=== PATIENT | male | born 1940 | race Caucasian/White ===

== ENCOUNTER → 2016-03-22 | Outpatient (CLI) | payer BC ==
[~2016-03-22] MED LIST: ACET-1311 PO; ASPI-435 PO; ATRIN INH; ATROPO PEG; ATV1 SL; AZEL0.15 NAE; BNC20 PO; CALC500C70 PO; CHOL100010 PO; DIAZ2TAB PO; DOCU-94 PO; DRGTP12 TD; IPRA1AER2 INH; Levalbuterol INH; MIRT15TA3 PO; MULT-506 PO; POLY1SOL6 OP; RXNS15 PO; SIMV10TA2 PO; SYN50 PO
[2016-03-22 15:44] LABS: BASO % 0.2 %; BASO ABS # 0.02 K/uL (0-0.2); COMPLETE YES; EOS % 0.4 %; HEMATOCRIT 37.8 % (42-52); IG% 0.2 %; LYMPH % 14.4 %; LYMPH ABS # 1.74 K/uL (1.2-3.4); MEAN CELL VOLUME 90.2 fL (80-100); MEAN CORPUSCULAR HEMOGLOBIN 30.8 pg (25-34); MEAN CORPUSCULAR HGB CONC 34.1 g/dl (32-36); MONO % 7.1 %; NEUT % 77.7 %; PLATELET COUNT 503 K/uL (130-400); RED BLOOD COUNT 4.19 M/uL (4.7-6.1)
[2016-03-22 16:16] LABS: ALT/SGPT 22 U/L (12-78); BLOOD UREA NITROGEN 18 mg/dl (7-18); BUN/CREATININE RATIO 18.4 (10-20); CALCIUM 9.4 mg/dl (8.5-10.1); CARBON DIOXIDE 26 mmol/L (21-32); CHLORIDE 99 mmol/L (98-107); GLUCOSE 132 mg/dl (70-99); POTASSIUM 4.2 mmol/L (3.5-5.1); SODIUM 136 mmol/L (136-145)
[2016-03-22 16:26] LABS: ALB/GLOB RATIO 0.5 (0.9-2); ALKALINE PHOSPHATASE 109 U/L (45-117); AST/SGOT 24 U/L (15-37)
== END | disposition home or self-care (01) ==
LOC: C.LAB1850 14:46
PROVIDERS: ATTEND Internal Medicine
DX: E03.9 Hypothyroidism, unspecified (principal); G62.9 Polyneuropathy, unspecified

== ENCOUNTER → 2016-04-02 | Outpatient (CLI) | payer BC ==
[2016-04-02 13:13] LABS: THYROID STIMULATING HORMONE 5.03 uIu/ml (0.300-4.500)
== END | disposition home or self-care (01) ==
LOC: C.LABWYN 11:42
PROVIDERS: ATTEND Internal Medicine
DX: E07.9 Disorder of thyroid, unspecified (principal)

== ENCOUNTER → 2016-04-25 | Outpatient (CLI) | payer BC ==
[2016-04-25 12:58] LABS: THYROID STIMULATING HORMONE 5.87 uIu/ml (0.300-4.500)
== END | disposition home or self-care (01) ==
LOC: C.LABWYN 12:45
PROVIDERS: ATTEND Internal Medicine
DX: E03.9 Hypothyroidism, unspecified (principal)

== ENCOUNTER → 2016-05-16 | Outpatient (CLI) | payer BC ==
[2016-05-16 12:33] LABS: THYROID STIMULATING HORMONE 4.93 uIu/ml (0.300-4.500)
== END | disposition home or self-care (01) ==
LOC: C.LABWYN 12:13
PROVIDERS: ATTEND Internal Medicine
DX: E03.9 Hypothyroidism, unspecified (principal)

== ENCOUNTER 2016-05-20 13:23 | Inpatient (IN) | payer BC, OTHER ==
[~2016-05-20] VITALS: Ht 182.9 cm; Wt 56.6 kg
[~2016-05-20 13:23] MED LIST changes: -ACET-1311 PO; -ATROPO PEG; -ATV1 SL; -DOCU-94 PO; -DRGTP12 TD; -IPRA1AER2 INH; -RXNS15 PO; -SYN50 PO
[2016-05-20] MEDS ORDERED: ALBUT/IPRATROP 3MG/0.5MG NEB 3 ML VIAL INH STA (16:10)
--- NOTE | 2016-05-20 16:49 | EMERGENCY ROOM VISIT NOTE ---
ED Visit Note First contact with patient: 15:57 I have seen and examined this patient with Amandeep Townsend and generally agree with the treatment plan as discussed. Problem List Medical Problems: (1) Peripheral neuropathy Status: Chronic (2) Pulmonary fibrosis Status: Chronic Current/Historical Medications Scheduled Aspirin (Aspirin 81), 81 MG PO QAM Azelastine Hcl (Astepro), 2 SPRY FERMIN DAILY Calcium/Vitamin D (Os-Tylor 500 Plus D), 1 TAB PO QAM Cholecalciferol (Vitamin D), 1,000 INTER.UNIT PO QAM Diazepam (Valium), 2 MG PO QPM Ipratropium [place] (Atrovent Hfa), 2 PUFFS INH Q6 Mirtazapine (Remeron), 15 MG PO HS Multivitamin (Multivitamin), 1 TAB PO QAM Olmesartan Medoxomil (Benicar), 10 MG PO BID Polyethylene Glycol-Propylene (Systane Ultra), 1 DROPS OP QID Simvastatin (Zocor), 1 TAB PO HS [Levalbuterol], 2 PUFFS INH Q6 Allergies Coded Allergies: Sulfa Antibiotics (Verified Allergy, Unknown, "SULFA DRUGS", 12/27/15) Vital Signs Date Time Temp Pulse Resp B/P Pulse Ox O2 Delivery O2 Flow Rate FiO2 05/20/16 16:21 93 05/20/16 16:17 94 Nasal Cannula 2.0 05/20/16 13:33 97 Nasal Cannula 3.0 05/20/16 13:30 36.7 68 20 145/78 97 Nasal Cannula 3.0 Laboratory Results Test 05/20/16 16:10 Departure Information Referrals Pro,Abraham Wright M.D. (PCP) Patient Instructions My [facility]
[2016-05-20] MEDS ORDERED: CHOL100010 PO (16:52)
[2016-05-20] MEDS ORDERED: DOCU-94 PO (16:52)
[2016-05-20] MEDS ORDERED: IPRA1AER2 INH (16:52)
[2016-05-20] MEDS ORDERED: ACET-1311 PO (16:52)
[2016-05-20] MEDS ORDERED: SYN50 PO (16:52)
[2016-05-20 16:56] LABS: BASO % 0.3 %; BASO ABS # 0.03 K/uL (0-0.2); COMPLETE YES; EOS % 0.2 %; HEMATOCRIT 32.6 % (42-52); IG% 0.2 %; LYMPH % 13.7 %; LYMPH ABS # 1.47 K/uL (1.2-3.4); MEAN CELL VOLUME 92.9 fL (80-100); MEAN CORPUSCULAR HEMOGLOBIN 31.3 pg (25-34); MEAN CORPUSCULAR HGB CONC 33.7 g/dl (32-36); MEAN PLATELET VOLUME 8.8 fL (7.4-10.4); MONO % 6.6 %; PLATELET COUNT 475 K/uL (130-400); RED BLOOD COUNT 3.51 M/uL (4.7-6.1); WHITE BLOOD COUNT 10.72 K/uL (4.8-10.8)
[2016-05-20 17:12] LABS: BUN/CREATININE RATIO 20.5 (10-20); CALCIUM 9.7 mg/dl (8.5-10.1); CREATININE 0.87 mg/dl (0.60-1.40); POTASSIUM 4.3 mmol/L (3.5-5.1)
[2016-05-20 17:15] LABS: ALB/GLOB RATIO 0.4 (0.9-2)
--- NOTE | 2016-05-20 19:14 | History and Physical ---
History & Physical Date & Time of Service: May 20, 2016 at 19:03 Chief Complaint: Referred By Primary Care Physician: Abraham Bermeo M.D. History of Present Illness Source: patient, clinic records, hospital records This patient is a pleasant 75-year-old male that was sent to the emergency department by his quiller operator office today. The patient has a history of pulmonary fibrosis. The disease seems to be progressing fairly quickly. The patient reports wearing 2 L of oxygen per nasal cannula at home at all times. His shortness of breath has progressively gotten worse over the last 2 months. He also notes approximately 60 pound weight loss within the last year. He reports his appetite has been very poor. He does complain of a chronic cough. He denies any hemoptysis. The cough is usually productive with sometimes white and sometimes green sputum. He denies any fever or chills. He denies any recent changes in his medications. During the patient's quiller operator visit today, he was found to be significantly hypoxic in the 80s reportedly on 5 L per nasal cannula. This prompted his visit to the emergency department. He is currently saturating at 93% on 2 L. The patient received a DuoNeb treatment in the emergency department with minimal improvement. Past Medical/Surgical History Medical Problems: (1) Peripheral neuropathy Status: Chronic (2) Pulmonary fibrosis Status: Chronic Hypertension BPH Restless leg syndrome Peripheral neuropathy Status post appendectomy, tonsillectomy, cataract surgery bilaterally, retinal repair, strabismus surgery Family History Patient reports no known family medical history. Mother-emphysema Father-coronary artery disease Social History Smoking Status: Former Smoker (reports being a light smoker. Less than a half pack per day. Quit 3 years ago.) Drug Use: none Marital Status: Housing status: other (lives at the [facility]) Occupational Status: retired Multi-Drug Resistant Organisms History of MDRO: No Allergies Coded Allergies: Sulfa Antibiotics (Verified Allergy, Unknown, "SULFA DRUGS", 05/20/16) Home Medications Scheduled Aspirin (Aspirin 81), 81 MG PO QAM Azelastine Hcl (Astepro), 2 SPRY FERMIN DAILY Calcium/Vitamin D (Os-Tylor 500 Plus D), 1 TAB PO QAM Cholecalciferol (Vitamin D), 1,000 UNIT PO DAILY Ipratropium-Albuterol (Combivent Respimat), 1 PUFFS INH QID Levothyroxine Sodium (Synthroid), 50 MCG PO QAM Mirtazapine (Remeron), 15 MG PO HS Multivitamin (Multivitamin), 1 TAB PO QAM Olmesartan Medoxomil (Benicar), 10 MG PO BID Polyethylene Glycol-Propylene (Systane Ultra), 1 DROPS OP QID Simvastatin (Zocor), 10 MG PO HS Scheduled PRN Acetaminophen (Tylenol), 325 MG PO Q6 PRN for Pain Docusate Sodium (Colace), 100 MG PO BID PRN for Constipation Review of Systems 10 system review performed and negative unless noted in HPI or below Physical Exam Vital Signs Date Time Temp Pulse Resp B/P Pulse Ox O2 Delivery O2 Flow Rate FiO2 05/20/16 16:21 93 05/20/16 16:17 94 Nasal Cannula 2.0 05/20/16 13:33 97 Nasal Cannula 3.0 05/20/16 13:30 36.7 68 20 145/78 97 Nasal Cannula 3.0 General Appearance: + mild distress (mild respiratory distress), + cachetic Head: normocephalic ENT: + pertinent finding (oral mucosa dry. White plaque noted on the tongue.) Neck: no JVD Respiratory/Chest: + pertinent finding (crackles noted diffusely. Very faint expiratory wheeze noted right greater than left. Positive tachypnea.) Cardiovascular: + tachycardia (no murmur. Regular rhythm.) Abdomen/GI: normal bowel sounds, non tender, soft Extremities/Musculoskelatal: no calf tenderness, no pedal edema, + pertinent finding (muscle wasting noted in the lower extremities.) Neurologic/Psych: no motor/sensory deficits, oriented x 3 Skin: warm/dry Diagnostics Laboratory Results Results Past 24 Hours Test 05/20/16 16:40 Range/Units White Blood Count 10.72 4.8-10.8 K/uL Red Blood Count 3.51 4.7-6.1 M/uL Hemoglobin 11.0 14.0-18.0 g/dL Hematocrit 32.6 42-52 % Mean Corpuscular Volume 92.9 80-100 fL Mean Corpuscular Hemoglobin 31.3 25-34 pg Mean Corpuscular Hemoglobin Concent 33.7 32-36 g/dl Platelet Count 475 130-400 K/uL Mean Platelet Volume 8.8 7.4-10.4 fL Neutrophils (%) (Auto) 79.0 % Lymphocytes (%) (Auto) 13.7 % Monocytes (%) (Auto) 6.6 % Eosinophils (%) (Auto) 0.2 % Basophils (%) (Auto) 0.3 % Neutrophils # (Auto) 8.47 1.4-6.5 K/uL Lymphocytes # (Auto) 1.47 1.2-3.4 K/uL Monocytes # (Auto) 0.71 0.11-0.59 K/uL Eosinophils # (Auto) 0.02 0-0.5 K/uL Basophils # (Auto) 0.03 0-0.2 K/uL RDW Standard Deviation 54.1 36.4-46.3 fL RDW Coefficient of Variation 16.0 11.5-14.5 % Immature Granulocyte % (Auto) 0.2 % Immature Granulocyte # (Auto) 0.02 0.00-0.02 K/uL Sodium Level 136 136-145 mmol/L Potassium Level 4.3 3.5-5.1 mmol/L Chloride Level 98 98-107 mmol/L Carbon Dioxide Level 31 21-32 mmol/L Anion Gap 7.0 3-11 mmol/L Blood Urea Nitrogen 18 7-18 mg/dl Creatinine 0.87 0.60-1.40 mg/dl Est Creatinine Clear Calc Drug Dose 65.3 ml/min Estimated GFR () 96.5 Estimated GFR (Non- 83.2 BUN/Creatinine Ratio 20.5 10-20 Random Glucose 138 70-99 mg/dl Calcium Level 9.7 8.5-10.1 mg/dl Total Bilirubin 0.3 0.2-1 mg/dl Aspartate Amino Transf (AST/SGOT) 26 15-37 U/L Alanine Aminotransferase (ALT/SGPT) 19 12-78 U/L Alkaline Phosphatase 122 45-117 U/L Total Protein 8.0 6.4-8.2 gm/dl Albumin 2.2 3.4-5.0 gm/dl Globulin 5.8 2.5-4.0 gm/dl Albumin/Globulin Ratio 0.4 0.9-2 Diagnostic Radiology Patient Name: BISI YANG Dominick Unit Number: [id number] Dictated: 05/20/161246 Transcribed: 05/20/161246 EV Printed Date/Time: [~ rep prt dt]/[~ rep prt tm] [~ rep ct labl] - [~ rep ct ivnm] [facility] Radiology Department [facility] JUST[place] [id number] Dictated: 05/20/161246 Transcribed: 05/20/161246 EV Printed Date/Time: [~ rep prt dt]/[~ rep prt tm] [~ rep ct labl] - [~ rep ct ivnm] Patient: BISI YANG Address1: [address] [facility] Rec: [id number] Address2: Acct ID: [id number] [facility] [address] Date: 1940 Sex: M Room/Bed: Ref Phy: SC: [id number] Att Phy: Deanna Mc PA-C Report #: [id number] Vikki Phy: No Doctor, Assigned Test: CXR Admit Phy: Manager Bilingual: CHRIS Interpreting Phy: Flo Mosqueda M.D. Diagnosis: R06.02 Ordering Phy: Deanna Mc PA-C Service Date: 05/20/16 Admit Date: 05/20/16 MNE: [id number] CONF: DICTATED BY: Flo Mosqueda M.D.]] CC: No Doctor, Assigned Deanna Mc PA-C Endcc: [~ rep ct add3]] TWO VIEW CHEST CLINICAL HISTORY: Dyspnea. FINDINGS: PA and lateral chest radiographs are compared to study dated 12/25/2015 and correlated with chest CT dated 12/21/2015. The heart is top normal in size and there is atherosclerotic calcification of the thoracic aorta. Findings of extensive chronic interstitial lung disease with multifocal bronchiectasis, cystic change, multifocal airspace opacities, and significant pleural thickening at the lung bases has modestly progressed from previous. There is no definite superimposed airspace consolidation. No large pleural effusion is seen. There is no pneumothorax. The skeletal structures are osteopenic. The bony thorax appears intact. Degenerative change and hyperkyphosis are noted in the thoracic spine. IMPRESSION: 1. Findings of advanced chronic interstitial lung disease with multiple foci of bronchiectasis, nodular airspace opacities, and cystic change appears somewhat progressed from the 12/25/2015 examination. 2. There is no clear evidence of superimposed airspace consolidation or pleural effusion. Electronically signed by: Flo Mosqueda M.D. 05/20/2016 12:50 PM Dictated Date/Time: 05/20/2016 12:47 PM The status of this report is Signed. Draft = Not yet reviewed or approved by Radiologist. Signed = Reviewed and approved by Radiologist. <AttendingPhy>Deanna Mc PA-C</AttendingPhy> <FamilyPhy></FamilyPhy> < PrimaryPhy>No Doctor, Assigned</PrimaryPhy> <UnitNumber>[id number]</UnitNumber> <VisitNumber>[id number]</VisitNumber> <PatientName>BISI YANG</PatientName > <DateOfBirth>1940</DateOfBirth> <Location>[id number]</Location> < ServiceDate>05/20/16</ServiceDate> <MNE>ESINDI</MNE> <OrderingPhy>Deanna Mc</OrderingPhy> <OrderingPhyMNE>f rep ord dr nolasco</OrderingPhyMNE> < DictatingPhyMNE>f rep dict dr nolasco</DictatingPhyMNE> <CCListMNE>f rep ct mne</ CCListMNE> <AdmittingPhyMNE>f pt admit dr nolasco</AdmittingPhyMNE> <AttendingPhyMNE >f pt attend dr nolasco</AttendingPhyMNE> <ConsultingPhyMNE>f pt consult dr nolasco</ConsultingPhyMNE> <FamilyPhyMNE>f pt fam dr nolasco</FamilyPhyMNE> <OtherPhyMNE>f pt other dr nolasco</OtherPhyMNE> < PrimaryPhyMNE>f pt prim care dr nolasco</PrimaryPhyMNE> <ReferringPhyMNE>f pt referring dr nolasco</ReferringPhyMNE> Impression Assessment and Plan 75-year-old male with an unfortunate history of progressive interstitial lung disease presents to the emergency department with acute on chronic respiratory failure Acute on chronic respiratory failure with hypoxia -Admit to medical floor -Change Combivent to DuoNeb scheduled every 6 hours -Patient reports no significant improvement with steroids. I will hold off on steroids for now -I also will hold off on IV antibiotics as the patient is afebrile with no white count noted. -CT of the chest with IV contrast -Pulmonary consult -Continuous pulse ox -O2 per protocol Hypertension -Patient typically is on Olmesartan at 10 mg twice daily at home. I will hold this in the anticipation of the patient receiving IV dye for CT of the chest -Hydralazine 5 mg IV q 6 hr PRN Hypothyroidism -Continue Synthroid 50 g daily Restless leg syndrome -Continue Remeron 15 mg at night Weight loss-->? d/t chronic disease Hyperlipidemia -Continue simvastatin 10 mg daily DVT prophylaxis -Heparin 5000 units subcutaneous BID -TEDChriss SCDs CODE STATUS -CPR/cardioversion ok -NO INTUBATION Level of Care Med/Surg Resuscitation Status FULL RESUSCITATION VTE Prophylaxis VTE Risk Assessment Done? Y/N: Yes Risk Level: Low Given or contraindicated: Unfractionated heparin SQ, T.E.D. Stockings, SCD's History Physician Senior Project Engineer Supervision Note: I interviewed and examined the patient. Discussed with JUSTUS Sharif and agree with findings and plan as documented in the note. Any exceptions or clarifications are listed here: Patient admitted for acute on chronic hypoxemic respiratory failure with a history of interstitial lung disease with cystic changes and bronchiectasis with a previous admission a few months ago for presumed superimposed pneumonia. Patient returns with chronically worsening hypoxemia. He reports when his pulse ox was checked at his personal assisted, it is frequently in the mid 80s with exercise. He has been having a lot of dyspnea on exertion. He denies chest pain or leg swelling. He continues to lose weight even more since the last admission. Vitals reviewed Cachectic appearing, no acute distress Regular rate and rhythm no murmurs, gallops or rubs Diffuse coarse crackles and rhonchi bilateral lungs Abdomen soft nontender nondistended positive bowel sounds Extremities with sarcopenia, no edema Skin no rashes 75-year-old male with a history of chronic interstitial lung disease, CT of the chest performed since admission shows progressively worsening parenchymal infiltrate. We will go ahead and add on antibiotics to cover for broad range of infectious organisms and given that he resides in a alf facility, will give Zosyn, vancomycin, and Levaquin. We'll also start IV Solu-Medrol given that he did have improvement last admission as per the discharge summary with IV steroids and antibiotics. Appreciate pulmonology input and question if needs bronchoscopy this admission. We'll collect sputum sample as well. As for the weight loss, it could be due to his chronic lung disease, however he could have an occult malignancy as well. He is up-to-date on his colonoscopy, but has not had a CT of the abdomen and pelvis. Consideration could be given to doing this while an inpatient. Documented By: Valarie Jaime
[2016-05-20] MEDS ORDERED: ACETAMINOPHEN 325 MG TAB PO PRN (19:15)
[2016-05-20] MEDS ORDERED: ALUMINUM/MAGNESIUM/SIMETH (MAALOX MAX) 30 ML UDC PO PRN (19:15)
[2016-05-20] MEDS ORDERED: HydrALAZINE HCL 20 MG/ML VIAL IV. PRN (19:15)
[2016-05-20] MEDS ORDERED: ONDANSETRON INJ 2 MG/ML 2 ML VIAL IV PRN (19:15)
[2016-05-20] MEDS ORDERED: ALBUT/IPRATROP 3MG/0.5MG NEB 3 ML VIAL INH PRN (19:45)
[2016-05-20] MEDS: ALBUT/IPRATROP 3MG/0.5MG NEB 3 ML VIAL INH SCH (20:00)
[2016-05-20 20:31] LABS: INR 1.1 (0.9-1.1); PARTIAL THROMBOPLASTIN RATIO 1.2; PROTHROMBIN TIME (PATIENT) 11.4 SECONDS (9.0-12.0)
[2016-05-20] MEDS ORDERED: OPTIRAY 320 IV PRN (21:00)
--- NOTE | 2016-05-20 21:11 | DIAGNOSTIC IMAGING REPORT ---
CHEST CT WITH CONTRAST CT DOSE: 343.64 mGy.cm HISTORY: Dyspnea acute on chronic respiratory failure ?infectious process TECHNIQUE: Multiaxial CT images of the chest were performed following the intravenous administration of contrast. COMPARISON: 12/21/2015 FINDINGS: Diffuse bilateral parenchymal fibrotic, interstitial, and bronchiectatic change. Continues be a trace amount of pneumomediastinum which is at least moderately improved compared to the prior exam. Mild stable cardiomegaly. Increased prominence of the parenchymal findings in the peripheral lung regions and in particular the left pulmonary apex. Superimposed infiltrative change must be considered. There are no significant pleural effusions. Bleb formation bilaterally is stable to minimally progressive. There has been no evidence for progressive mediastinal or hilar adenopathy. IMPRESSION: 1. Progressive parenchymal fibrotic and bronchiectatic change bilaterally. 2. Probable superimposed infiltrative change in the periphery of the lungs as well as in the left upper lobe region. 3. A small pneumomediastinum is slightly improved from the prior exam Electronically signed by: Jr Foley M.D. 05/20/2016 9:09 PM Dictated Date/Time: 05/20/2016 9:07 PM
[2016-05-20] MEDS: SIMVASTATIN 10 MG TAB PO SCH ×2 (22:00→22:03)
[2016-05-20] MEDS: MIRTAZAPINE TAB 15 MG TAB PO SCH ×2 (22:00→22:03)
[2016-05-20] MEDS: ARTIFICIAL TEARS OP SOLN OP SCH ×2 (22:01)
[2016-05-20] MEDS: DOCUSATE SODIUM 100 MG CAP PO SCH (22:02)
[2016-05-20] MEDS: HEPARIN SOD 5000 UNIT/0.5 ML CARP SQ SCH (22:05)
[2016-05-20] MEDS: BOOST VANILLA PO SCH ×2 (22:09)
[2016-05-20] MEDS ORDERED: METHYLPREDNISOLONE IV 60 MG in SYRINGE 0 ML IV ONE (22:43)
[2016-05-20] MEDS ORDERED: PIPERACILL/TAZOBAC CONSULT ACTIVE PRN (22:45)
[2016-05-20] MEDS ORDERED: PIPERACILL/TAZOBAC IV 3.375 GM in DEXTROSE 5% 100ML IV ONE (22:45)
[2016-05-20 23:38] VITALS: BP 120/81; TEMP 36.7; O2SAT 97; Ht 182.9 cm; Wt 56.6 kg
[2016-05-21] VITALS (11 sets, daily range): BP systolic 118–135; BP diastolic 72–77; PULSE 66–81; TEMP 34.7–36.4; O2SAT 89–100
[2016-05-21] MEDS ORDERED: VANCOMYCIN INJ 1,600 MG in SODIUM CHLORIDE 0.9% 500ML 500 ML IV SCH (01:00)
[2016-05-21] MEDS: LEVOFLOXACIN / D5W 750 MG in PREMIXED IN D5W 150 ML IV SCH ×2 (01:08→22:37)
--- NOTE | 2016-05-21 01:14 | EMERGENCY ROOM VISIT NOTE ---
ED Visit Note First contact with patient: 15:57 Chief Complaint: Shortness of breath. History of Present Illness: Mr. Ramos is a 75-year-old white male who is accompanied into the ED by his complaining of shortness of breath and weight loss. Historically patient has a history of pulmonary fibrosis, interstitial lung disease and pneumonia. Patient reports over the last 3 months he has been almost continuously short of breath. This is been associated with a chronic nonproductive cough and weight loss. He was being seen at his PCPs office today for pulmonary tests. When he was seen he was on oxygen and was reported saturating 82%. His appointment was canceled and he was referred to the ED for further evaluation and care. Currently patient's only complaint is shortness of breath. He does report he has a chronic cough. His dyspnea worsens on exertion and mildly improves at rest. Associated with the shortness of breath, poor appetite and he reports she 's lost 80 pounds over the last year. He denies fevers, chills, sweats, skin eruptions, skin color changes, headache, dizziness, lightheadedness, nasal drainage, sore throat, voice changes, hemoptysis, wheezing, orthopnea, dependent edema, previous clots, claudication, cramping, chest pain, abdominal pain, nausea, vomiting. Review of Systems: As noted above in history of present illness. All body systems were reviewed and found to be negative as noted above. Past Medical History:Medical Problems: (1) Acute and chronic respiratory failure (2) Interstitial lung disease (3) Peripheral neuropathy (4) Pulmonary fibrosis (5) Right lower lobe pneumonia Current Medications: Medications Dose Route/Sig Max Daily Dose Days Date Category Tylenol (Acetaminophen) 325 Mg Tab 325 Mg PO Q6 PRN 05/20/16 Reported Synthroid (Levothyroxine Sodium) 50 Mcg Tab 50 Mcg PO QAM 05/20/16 Reported Combivent Respimat (Ipratropium-Albuterol) 1 Aer Aer 1 Puffs INH QID 05/20/16 Reported Colace (Docusate Sodium) 100 Mg Cap 100 Mg PO BID PRN 05/20/16 Reported Vitamin D (Cholecalciferol) 1,000 Unit Tab 1,000 Unit PO DAILY 05/20/16 Reported Remeron (Mirtazapine) 15 Mg Tab 15 Mg PO HS 12/20/15 Reported Benicar (Olmesartan Medoxomil) 20 Mg Tab 10 Mg PO BID 07/05/15 Reported Systane Ultra (Polyethylene Glycol-Propylene) 1 Annette Annette 1 Drops OP QID 09/14/14 Reported Zocor (Simvastatin) 10 Mg Tab 10 Mg PO HS 30 09/14/14 Reported Multivitamin (Multivitamins) Tab 1 Tab PO QAM 09/14/14 Reported Os-Tylor 500 Plus D (Calcium/Vitamin D) Tab 1 Tab PO QAM 09/14/14 Reported Astepro (Azelastine Hcl) 0.15 % Spr 2 [place] FERMIN DAILY 30 09/14/14 Reported Aspirin 81 (Aspirin) 81 Mg Tab 81 Mg PO QAM 09/14/14 Reported Allergies to Medications: Sulfa. Social History: Patient is currently retired; he feels safe in his home environment; he denies tobacco use. Physical Examination: Vital Signs: Date Time Temp Pulse Resp B/P Pulse Ox O2 Delivery O2 Flow Rate FiO2 05/20/16 19:09 36.7 93 18 120/81 97 Nasal Cannula 3.0 05/20/16 16:21 93 05/20/16 16:17 94 Nasal Cannula 2.0 05/20/16 13:33 97 Nasal Cannula 3.0 05/20/16 13:30 36.7 68 20 145/78 97 Nasal Cannula 3.0 GENERAL: 75-year-old male in mild to moderate distress with increased respiratory effort and rate. Cachectic-appearing. Afebrile and hemodynamically stable. NEUROLOGICAL: Awake, alert and oriented to person, place and time. Answering questions appropriately and following commands. Good hand eye coordination. No focal motor sensory deficits. SKIN: Warm, dry and pink. HEENT: Atraumatic and normocephalic. PERRLA. Sclera white and conjunctiva pale. No drainage from naris. Oral cavity moist and pink. Pharynx is nonerythematous or edematous. Speech normal. No lymphadenopathy. Trachea midline. No jugular venous distention. BACK: No tenderness over the bony spine. No CVA tenderness. THORAX: Lungs sounds are decreased bilateral with scattered rhonchi and an occasional wheeze. Equal bilaterally with symmetrical chest wall. Increased with respiratory effort. No crepitus, tenderness, subcutaneous air or deformities noted. HEART: Regular rate and rhythm. No gallops, rubs or murmurs are appreciated. ABDOMEN: Flat, soft and nontender. Positive bowel sounds in all quadrants. No guarding, rigidity or organomegaly. EXTREMITIES: Moves all extremities well on command and with purpose. All distal neurovascular statuses are intact and equal bilaterally. No calf tenderness or cords. ED Course: Patient is assessed as noted above. Laboratory Testing: Test 05/20/16 16:40 Range/Units White Blood Count 10.72 4.8-10.8 K/uL Red Blood Count 3.51 4.7-6.1 M/uL Hemoglobin 11.0 14.0-18.0 g/dL Hematocrit 32.6 42-52 % Mean Corpuscular Volume 92.9 80-100 fL Mean Corpuscular Hemoglobin 31.3 25-34 pg Mean Corpuscular Hemoglobin Concent 33.7 32-36 g/dl Platelet Count 475 130-400 K/uL Mean Platelet Volume 8.8 7.4-10.4 fL Neutrophils (%) (Auto) 79.0 % Lymphocytes (%) (Auto) 13.7 % Monocytes (%) (Auto) 6.6 % Eosinophils (%) (Auto) 0.2 % Basophils (%) (Auto) 0.3 % Neutrophils # (Auto) 8.47 1.4-6.5 K/uL Lymphocytes # (Auto) 1.47 1.2-3.4 K/uL Monocytes # (Auto) 0.71 0.11-0.59 K/uL Eosinophils # (Auto) 0.02 0-0.5 K/uL Basophils # (Auto) 0.03 0-0.2 K/uL RDW Standard Deviation 54.1 36.4-46.3 fL RDW Coefficient of Variation 16.0 11.5-14.5 % Immature Granulocyte % (Auto) 0.2 % Immature Granulocyte # (Auto) 0.02 0.00-0.02 K/uL Prothrombin Time 11.4 9.0-12.0 SECONDS Prothromb Time International Ratio 1.1 0.9-1.1 Activated Partial Thromboplast Time 31.6 21.0-31.0 SECONDS Partial Thromboplastin Ratio 1.2 Sodium Level 136 136-145 mmol/L Potassium Level 4.3 3.5-5.1 mmol/L Chloride Level 98 98-107 mmol/L Carbon Dioxide Level 31 21-32 mmol/L Anion Gap 7.0 3-11 mmol/L Blood Urea Nitrogen 18 7-18 mg/dl Creatinine 0.87 0.60-1.40 mg/dl Est Creatinine Clear Calc Drug Dose 65.3 ml/min Estimated GFR () 96.5 Estimated GFR (Non- 83.2 BUN/Creatinine Ratio 20.5 10-20 Random Glucose 138 70-99 mg/dl Calcium Level 9.7 8.5-10.1 mg/dl Total Bilirubin 0.3 0.2-1 mg/dl Aspartate Amino Transf (AST/SGOT) 26 15-37 U/L Alanine Aminotransferase (ALT/SGPT) 19 12-78 U/L Alkaline Phosphatase 122 45-117 U/L Total Protein 8.0 6.4-8.2 gm/dl Albumin 2.2 3.4-5.0 gm/dl Globulin 5.8 2.5-4.0 gm/dl Albumin/Globulin Ratio 0.4 0.9-2 Chest X-Rays: Were reviewed by myself and read by the radiologist findings of advanced chronic interstitial lung disease with multiple foci of bronchiectasis , nodular airspace opacities and cystic changes somewhat aggressive from July 2015 examination. There is no evidence of superimposed airspace consolidation or pleural effusion. Patient was given an albuterol/Atrovent nebulizer breathing treatment. After his breathing treatment he was reassessed and had slight improvement in air movement and no additional wheezing but still had scattered rhonchi. His respiratory effort and rate did seem to improve. Patient was reassessed multiple times during his stay in the emergency department. Patient's case was reviewed with Dr. Dueñas; he independently assessed the patient and we agreed on diagnostic approach, treatment, disposition and plan. Patient's case was consulted with case management and Dr. Gonsalves, , for medical observation/admission. Patient and were educated about today's findings. Clinical Impression: Shortness of breath. Exacerbation of chronic lung disease. Decision-Making: Initially my differential diagnosis I considered pneumonia, pulmonary embolism, acute coronary syndrome, pneumothorax, and other causes. Disposition and Plan: Please see Dr. Jaime's notes and orders for final disposition and plan.
[2016-05-21 01:46] LABS: URINE APPEARANCE CLOUDY (CLEAR); URINE BILIRUBIN NEG (NEG); URINE COLOR YELLOW; URINE EPITHELIAL CELL AUTO 20-30 /lpf (0-5); URINE NITRITE NEG (NEG); URINE SPECIFIC GRAVITY > 1.045 (1.000-1.030); UROBILINOGEN NEG (NEG)
[2016-05-21 01:53] LABS: MANUAL MICROSCOPIC REQUIRED? NO; REVIEW REQ? NO
[2016-05-21] MEDS: PIPERACILL/TAZOBAC IV 3.375 GM in DEXTROSE 5% 100ML IV SCH ×3 (04:43→21:31)
[2016-05-21] MEDS: LEVOTHYROXINE 50 MCG TAB PO SCH (05:52)
[2016-05-21] MEDS ORDERED: PIPERACILL/TAZOBAC IV 3.375 GM in DEXTROSE 5% 100ML 100 ML IV SCH (06:00)
[2016-05-21 06:11] LABS: BASO % 0.1 %; BASO ABS # 0.01 K/uL (0-0.2); COMPLETE YES; EOS % 0.2 %; IG% 0.2 %; LYMPH % 8.9 %; LYMPH ABS # 0.75 K/uL (1.2-3.4); MEAN CELL VOLUME 92.8 fL (80-100); MEAN CORPUSCULAR HEMOGLOBIN 31.1 pg (25-34); MEAN CORPUSCULAR HGB CONC 33.5 g/dl (32-36); MEAN PLATELET VOLUME 8.8 fL (7.4-10.4); MONO % 1.1 %; NEUT % 89.5 %; PLATELET COUNT 471 K/uL (130-400); RED BLOOD COUNT 3.34 M/uL (4.7-6.1)
[2016-05-21] MEDS: METHYLPREDNISOLONE IV 60 MG in SYRINGE 0 ML IV SCH ×3 (06:32→22:11)
[2016-05-21 06:47] LABS: BUN/CREATININE RATIO 26.2 (10-20); CREATININE 0.69 mg/dl (0.60-1.40); MAGNESIUM 1.9 mg/dl (1.8-2.4); POTASSIUM 4.1 mmol/L (3.5-5.1)
[2016-05-21] MEDS: ALBUT/IPRATROP 3MG/0.5MG NEB 3 ML VIAL INH SCH ×4 (07:41→20:20)
[2016-05-21] MEDS: ARTIFICIAL TEARS OP SOLN OP SCH ×8 (08:00→19:43)
--- NOTE | 2016-05-21 08:01 | Clinical Documentation Query ---
Dr. KAVITHA HANCOCK, [facility]. : CLINICAL DOCUMENTATION QUERY Patient is a 75 year old male admitted for evaluation and treatment of acute on chronic respiratory failure with hypoxia. H&P notes an approximate "60 pound weight loss within the last year. He reports his appetite has been very poor "60 pound weight loss within the last year. He reports his appetite has been very poor". BMI is 19.4 Kg/m*m. Boost supplements have been added and group art supervisor consult is pending. EMR weight is 57 Kg. Weight 07/05/15 was 77.27 Kg. This represents a 26.2% weight loss over this interval. In your clinical opinion is this patient being managed for: ( x ) Severe protein-calorie malnutrition ( ) Other explanation of clinical findings (Please Explain) ( ) Unable to determine (Please Define) ( ) Need to Discuss ( ) Not Agree The medical record reflects the following clinical findings, treatment, and risk factors. Clinical Indicators: As above Treatment: Boost supplements, dietary consultation, liberalized diet Risk Factors: Age, pulmonary fibrosis, chronic hypoxemic respiratory failure. Malnutrition in Chronic Illness Moderate or Severe Malnutrition defined by 2 of the following 6 criteria: CHARACTERISTICS MODERATE MALNUTRITION SEVERE MALNUTRITION ENERGY INTAKE <75% of estimated energyrequirement for > 1month <75% of estimated energyrequirement for > 1 month WEIGHT LOSS 5%/1 month7.5%/3 %/2ghtiud24%/1year >5%/1 month>7.5%/3 months>10%/6months>20%/1year BODY FAT*loss of SQ fat from the orbits, triceps, or fat overlying the ribs MILD SEVERE MUSCLE MASS*muscle wasting at the temples, clavicles, shoulders, interosseous spaces, scapula, thigh, calf MILD SEVERE FLUID ACCUMULATION*localized or generalized edema of the extremities, vulva, scrotum weight loss may be masked by edema MILD SEVERE HEALTH AND SAFETY TECHNICIAN STRENGTH N/A measurably decreased per the device's standards Please clarify and document your clinical opinion in the progress notes and discharge summary. Terms such as "probable", "suspected", "likely", "questionable", "possible", or "still to be ruled out" are acceptable. IF IN AGREEMENT, YOU MUST DOCUMENT ABOVE DIAGNOSTIC STATEMENT IN DAILY PROGRESS NOTES AND DISCHARGE SUMMARY. This document is not part of the patient's record. Thank You, Lion Field, RN [phone]
[2016-05-21] MEDS: BOOST VANILLA PO SCH ×6 (08:57→19:43)
[2016-05-21] MEDS: ASPIRIN 81 MG ECTAB PO SCH (08:58)
[2016-05-21] MEDS: DOCUSATE SODIUM 100 MG CAP PO SCH ×2 (08:58→19:50)
[2016-05-21] MEDS ORDERED: VANCOMYCIN INJ 1,000 MG in SODIUM CHLORIDE 0.9% 250ML 250 ML IV SCH (09:00)
[2016-05-21] MEDS: HEPARIN SOD 5000 UNIT/0.5 ML CARP SQ SCH ×2 (09:53→22:11)
[2016-05-21 09:57] LABS: ARTERIAL BLD GAS O2 SATURATION 96.9 % (90-95); ARTERIAL BLOOD GAS BASE EXCESS 3.6 mEq/L (-9-1.8); ARTERIAL BLOOD GAS HCO3 28 mmol/L (19-24); ARTERIAL BLOOD GAS PO2 91 mm/Hg (80-95); ARTERIAL BLOOD GAS pH 7.45 (7.35-7.45)
[2016-05-21 10:00] LABS: ALLEN TEST POS (POS); O2 ADMINISTRATION 4 LITERS
[2016-05-21] MEDS ORDERED: VANCOMYCIN CONSULT ACTIVE PRN (10:00)
--- NOTE | 2016-05-21 10:17 | Pharmacy Progress Note ---
Pharmacy Antibiotic Consult Date of Service: May 21, 2016. Pharmacy Dosing Scope Pharmacy is consulted to initiate vancomycin and zosyn IV dosing therapy, order appropriate labs and adjust drug dose/frequency. Subjective The patient is a 75 year old male admitted on May 20, 2016 at 19:26. Objective Height (Feet): 6 Height (Inches): 0.00 Weight (Kilograms): 64.900 Lab Results (24hrs): Laboratory Tests Test 05/20/16 16:40 05/21/16 05:00 BUN/Creatinine Ratio 20.5 26.2 Blood Urea Nitrogen 18 mg/dl 18 mg/dl Creatinine 0.87 mg/dl 0.69 mg/dl White Blood Count 10.72 K/uL 8.40 K/uL Red Blood Count 3.51 M/uL 3.34 M/uL Hemoglobin 11.0 g/dL 10.4 g/dL Hematocrit 32.6 % 31.0 % Mean Corpuscular Volume 92.9 fL 92.8 fL Mean Corpuscular Hemoglobin 31.3 pg 31.1 pg Mean Corpuscular Hemoglobin Concent 33.7 g/dl 33.5 g/dl Platelet Count 475 K/uL 471 K/uL Mean Platelet Volume 8.8 fL 8.8 fL Neutrophils (%) (Auto) 79.0 % 89.5 % Lymphocytes (%) (Auto) 13.7 % 8.9 % Monocytes (%) (Auto) 6.6 % 1.1 % Eosinophils (%) (Auto) 0.2 % 0.2 % Basophils (%) (Auto) 0.3 % 0.1 % Neutrophils # (Auto) 8.47 K/uL 7.51 K/uL Lymphocytes # (Auto) 1.47 K/uL 0.75 K/uL Monocytes # (Auto) 0.71 K/uL 0.09 K/uL Eosinophils # (Auto) 0.02 K/uL 0.02 K/uL Basophils # (Auto) 0.03 K/uL 0.01 K/uL Micro Results: Item Value Date Time MRSA DNA Surveillance Screen - Final Complete 05/21/16 0000 Nasal Specimen Positive for MRSA by DNA Probe Assessment & Plan Patient started on vancomycin, zosyn and levaquin (not consult) for possible pneumonia. Of note, patient has hx of pulmonary fibrosis typically on oxygen at home, and recently lost a significant amount of weight within this last year because of poor appetite. Patient resides in nursing facility and nasal swab is positive for MRSA. Vancomycin: * Patient received LD of 1600 mg (~25 mg/kg) x 1 in the ED this am * Will dose with vancomycin 700 mg (~12 mg/kg) iv q 12 hrs to achieve an estimated trough ~15 mcg/ml (goal 15-20 mcg/ml for PNA) * Estimated kinetics: t1/2~10hrs, ke~0.70hr-1, CrCl ~82 ml/min * Will obtain a trough prior to the 4th dose (05/23 at 0200) to ensure therapeutic; will collect sooner if renal function changes Zosyn: * Given 3.375 gm x 1 in the ED; now on 3.375 gm iv q 8 hrs which is appropriate for renal function CrCl>20 ml/min Pharmacy will continue to follow and will adjust dose/frequency as necessary. Thank you
--- NOTE | 2016-05-21 10:47 | PULMONARY CONSULTATION ---
DATE OF CONSULTATION: 05/21/2016 TIME: 8:50 a.m. REPORT OF CONSULTATION: The patient was seen in room 451. He is a 75-year-old male who has a history of severe interstitial lung disease. This was initially diagnosed in 2014. In March of 2015, he was evaluated at [facility]. No specific recommendations were made at that time. He was hospitalized at [facility] from 12/20/2015 until 12/29/2015. At that time, he had been losing weight and was short of breath with exertion. He was treated at that time with antibiotics and steroids with some short-term benefit. He has had progressive weight loss. He has lost 25 pounds since an office evaluation in the pulmonary office on 01/23/2016. The patient states that he feels like he has an appetite, but when he tries to eat, he just cannot get anything down. He has been trying some supplements such as Ensure. When he drinks the Ensure, he is even less hungry than he was before. He has been weak. He has obvious muscle wasting. At rest, he is fairly comfortable but with any exertion, he is winded. He is currently living in a personal custodial. He uses a walker. The patient's cough is mild. He expectorates small quantities of phlegm at that time. This might be a couple of times per day. He is not having any night sweats or day sweats. He is not having any fevers. He will feel cold occasionally but no significant chills. His ability to ambulate is extremely limited. He does wear oxygen about 21/24 hours. Amazingly, his insurance would not authorize a followup CAT scan of the chest to be done as an outpatient. He did have a CAT scan done previously in the fall of 2015. This was when he was hospitalized. That CAT scan showed some pneumomediastinum. It showed progression of bronchiectasis as well as cystic fibrotic changes throughout. There was a dominant cavity focus within the base of the right lower lobe measuring 6.6 cm with multiple new cavitary foci within the left upper lobe. There was mild mediastinal and right hilar adenopathy. The patient had a CAT scan yesterday through the Emergency Room. This again showed diffuse bilateral fibrotic and interstitial changes. The pneumomediastinum was decreased compared with prior. There were areas of apparent cavitation in the right lower lobe and in the left upper lobe. This could just reflect blebs but a true cavitary changes could not be excluded. The patient denies having any history of tuberculosis or exposure to tuberculosis from family members or others. He had a TB gold test last fall that was read as indeterminant. It was thought may have been that way because he was on steroids. PAST SURGICAL HISTORY: 1. Strabismus surgery. 2. Retinal detachment surgery. 3. Appendectomy. 4. Cataract surgery. 5. Deviated septum repair. 6. Tonsillectomy. PAST MEDICAL HISTORY: 1. Hypertension. 2. Hyperlipidemia. 3. Hypothyroidism. 4. BPH as documented in records, but the patient indicated he was not aware of this. 5. Kidney stones. 6. Osteoporosis. 7. Actinic keratosis. 8. Intraepithelial squamous cell CA. 9. Sinusitis. 10. Diverticular disease. 11. Restless leg syndrome. SOCIAL HISTORY: Tobacco none for 3 years but previously 1/4 pack per day for 50 years. ETOH -- none at present and previously very modest. ALLERGIES: SULFA. FAMILY HISTORY: Mother of emphysema. Father of heart disease. 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 He did not have any exposure history to dust, fumes or chemicals throughout his lifetime. MEDICATIONS: As an outpatient: 1. Acetaminophen p.r.n. 2. Aspirin 81 mg daily. 3. Azelastine nasal spray 2 sprays daily. 4. Calcium D. 5. Vitamin D. 6. Docusate. 7. Combivent Respimat 1 puff q.i.d. 8. Levothyroxine 50 mcg daily. 9. Mirtazapine 15 mg at bedtime. 10. Benicar 10 mg b.i.d. 11. Systane Ultra eyedrops 1 drop q.i.d. 12. Simvastatin 10 mg daily. REVIEW OF SYSTEMS: The patient is very weak. As noted, he lives in a personal custodial. He denies headache or dizziness. He has nasal congestion. He denies difficulty swallowing. There has been no heartburn. He has some constipation with a bowel movement only every third day or so, but he is not eating much. He has not had any chest pains except some with coughing spells. The remainder of the review of systems is negative except as noted above. Ten systems were reviewed. PHYSICAL EXAMINATION: GENERAL: The patient is a 75-year-old male who was cooperative, alert and oriented. He was in no distress at rest. The patient appears cachectic. VITAL SIGNS: Temperature is 36.3. Heart rate was 66 per minute. Blood pressure 119/73. Oxygen saturation was 100% on 3 liters. HEENT: Pupils were reactive. Nares were clear. Mouth exam was negative. He was a Mallampati grade 1. No lymph nodes were palpable. CHEST AND LUNGS: Showed prominent rib markings as the patient is so slender. The rhythm was regular. Diffuse rales were heard bilaterally posteriorly but greater on the right than the left. ABDOMEN: Soft. Bowel sounds were present. There was no tenderness to palpation or masses. EXTREMITIES: Showed no cyanosis, clubbing or edema. LABORATORY DATA: White count today was 8.4, hemoglobin 10.4, platelets 471,000. INR was 1.1 and PTT was 1.2. Urinalysis showed 5-10 RBCs. Specific gravity was greater than 1.045. Electrolytes show sodium 137, potassium 4.1, chloride 101, and bicarbonate 29. BUN was 18 with a creatinine of 0.69. Blood sugar was 101. Alkaline phosphatase was slightly elevated at 122. Total protein was 8 with albumin low at 2.2, but globulin elevated at 5.8. IMPRESSION: 1. Diffuse interstitial lung disease. 2. Left upper lobe and right lower lobe cavity -- versus blebs. 3. Progressive weight loss. 4. Pneumomediastinum -- stable. COMMENTS AND RECOMMENDATIONS: The patient is doing poorly based upon his performance criteria. He has severe weight loss. It appears he has progressive pulmonary fibrosis. The question at hand would if he has any superimposed infections in light of the cavities. It could be that these are just cyst with some inflammation. Nonetheless, one would have concerns about atypical infections or mycobacterial infections somewhat. In November of 2015, he was evaluated and was thought to be too high risk for any invasive procedures. The consideration of just a diagnostic bronchoscopy with washings or lavage could potentially be considered. I agree with the steroids and antibiotics in the hopes of reversing anything that might be reversible. I am going to check a blood gas. We will check a TB gold once again. We will order sputum for AFB. Consideration might be given to ordering a serum protein electrophoresis in light of the elevated globulin. If nothing specific is found, consideration might be given to hospice care if the patient were interested. Thank you for asking me to assist in his care.
[2016-05-21] MEDS: VANCOMYCIN INJ 700 MG in SODIUM CHLORIDE 0.9% 250ML 250 ML IV SCH (16:19)
--- NOTE | 2016-05-21 17:27 | Progress Note ---
Subjective Date of Service: May 21, 2016. Subjective Pt evaluation today including: conversation w/ patient, physical exam, chart review, lab review Problem List Medical Problems: (1) Change in mental status Status: Acute (2) Pneumonia Status: Acute (3) Weakness Status: Acute Review of Systems Constitutional: No chills, No fatigue, No fever, No problem reported, No see HPI, No sweats, No weakness, No weight loss Eyes: No diplopia, No discharge, No eye pain, No problem reported, No redness, No see HPI, No worsening of vision ENT: No dental problems, No hearing loss, No nasal symptoms, No problem reported, No see HPI, No sore throat, No tinnitus, No trouble swallowing, No unusual epistaxis Respiratory: + dyspnea on exertion, + shortness of breath, + wheezing Cardiac: No PND, No chest pain, No claudication, No edema, No orthopnea, No palpitations, No problem reported, No see HPI Abdomen: No GI bleeding, No constipation, No diarrhea, No nausea, No pain, No problem reported, No see HPI, No vomiting Musculoskeletal: No calf pain, No joint pain, No muscle pain, No problem reported, No see HPI, No swelling Male : No dysuria, No hematuria, No incontinence, No nocturia more than once/ night, No problem reported, No see HPI, No sexual dysfunction, No slowing stream , No urinary frequency Neurologic: No balance problems, No memory loss, No numbness/tingling, No paralysis, No problem reported, No see HPI, No vertigo, No weakness Psychiatric: No anhedonism, No anxiety, No depression symptoms, No insomnia, No problem reported, No see HPI, No substance abuse Heme: No abnormal bleeding/bruising, No clotting problems, No night sweats, No problem reported, No see HPI, No swollen lymph nodes Endo: No excessive thirst, No excessive urination, No fatigue, No problem reported, No see HPI Skin: No bleeding, No color change, No itch, No new/changing skin lesions, No problem reported, No rash, No see HPI Medications Current Inpatient Medications Medications (Trade) Dose Ordered Sig/Zayda Route Start Time Stop Time Status Last Admin Dose Admin Albuterol/ Ipratropium (Duoneb) 3 ml QIDR INH 05/20/16 20:00 06/19/16 19:59 05/21/16 15:25 3 ML Hydralazine HCl (HydrALAZINE INJ) 5 mg Q6H PRN IV. 05/20/16 19:15 06/19/16 19:14 Acetaminophen (Tylenol Tab) 650 mg Q4H PRN PO 05/20/16 19:15 06/19/16 19:14 Al Hydrox/Mg Hydrox/Simethicone (Maalox Max Susp) 15 ml Q4H PRN PO 05/20/16 19:15 06/19/16 19:14 Polyethylene (Miralax Powder Packet) 17 gm DAILY PRN PO 05/20/16 19:15 06/19/16 19:14 Ondansetron HCl (Zofran Inj) 4 mg Q6H PRN IV 05/20/16 19:15 06/19/16 19:14 Heparin Sodium (Porcine) (Heparin Sq 5000 Unit/0.5ml) 5,000 unit Q12H SQ 05/20/16 22:00 06/19/16 21:59 05/21/16 09:53 5,000 UNIT Enteral Nutritional Formula (Boost) 1 can TID PO 05/20/16 21:00 06/19/16 20:59 05/21/16 14:11 1 CAN Aspirin (Ecotrin Tab) 81 mg QAM PO 05/21/16 08:00 06/20/16 08:59 05/21/16 08:58 81 MG Docusate Sodium (coLACE CAP) 100 mg BID PO 05/20/16 21:00 06/19/16 20:59 05/21/16 08:58 100 MG Levothyroxine Sodium (Synthroid Tab) 50 mcg DAILYBB PO 05/21/16 06:30 06/20/16 06:59 05/21/16 05:52 50 MCG Mirtazapine (Remeron Tab) 15 mg HS PO 05/20/16 21:00 06/19/16 20:59 05/20/16 22:03 15 MG Simvastatin (Zocor Tab) 10 mg HS PO 05/20/16 21:00 06/19/16 20:59 05/20/16 22:03 10 MG Artificial Tears (Artificial Tears) 1 drops QID OP 05/20/16 21:00 06/19/16 20:59 05/21/16 16:27 1 DROPS Albuterol/ Ipratropium (Duoneb) 3 ml Q2H PRN INH 05/20/16 19:45 06/19/16 19:44 Ioversol 116 ml 116 ml UD PRN IV 05/20/16 21:00 05/24/16 20:59 Levofloxacin 750 mg/Prmx 150 ml @ 100 mls/hr Q24H IV 05/20/16 23:00 05/27/16 22:59 05/21/16 01:08 100 MLS/HR Piperacillin Sod/ Tazobactam Sod/ Dextrose (Zosyn Iv/D5 100ml) 115 ml @ 28.75 mls/ hr Q8H IV 05/21/16 04:00 05/28/16 03:59 05/21/16 11:55 28.75 MLS/HR Piperacillin Sod/ Tazobactam Sod 1 ea 1 ea UD PRN N/A 05/20/16 22:45 06/19/16 22:44 Methylprednisolone Sodium Succinate/ Syringe (Solu-Medrol IV/ Syringe) 0.96 ml @ 1.5 mls/min Q8 IV 05/21/16 06:00 06/20/16 05:59 05/21/16 14:18 1.5 MLS/MIN Vancomycin HCl 1 ea 1 ea UD PRN N/A 05/21/16 10:00 06/20/16 09:59 Vancomycin HCl/ Sodium Chloride (Vancomycin Inj/ Nss 250ml) 264 ml @ 125 mls/hr Q12H IV 05/21/16 14:00 05/28/16 13:59 05/21/16 16:19 125 MLS/HR Objective Vital Signs Date Time Temp Pulse Resp B/P Pulse Ox O2 Delivery O2 Flow Rate FiO2 05/21/16 16:12 Nasal Cannula 3.0 05/21/16 15:25 72 18 94 Nasal Cannula 2.0 05/21/16 12:21 Nasal Cannula 3.0 05/21/16 11:14 75 18 99 Nasal Cannula 3.0 05/21/16 10:55 78 97 05/21/16 07:58 Nasal Cannula 3.0 05/21/16 07:48 36.3 66 18 119/73 97 Nasal Cannula 3.0 05/21/16 07:41 71 18 95 Nasal Cannula 2.0 05/21/16 04:31 95 Nasal Cannula 3.0 05/21/16 04:30 89 Nasal Cannula 2.0 05/21/16 00:30 Nasal Cannula 2.0 05/21/16 00:00 36.4 75 20 121/72 99 2.0 05/20/16 23:38 36.7 18 120/81 97 Room Air 2.0 05/20/16 20:49 36.7 93 18 120/81 97 05/20/16 19:09 36.7 93 18 120/81 97 Nasal Cannula 3.0 Physical Exam General Appearance: no apparent distress Eyes: normal inspection, EOMI ENT: normal ENT inspection, hearing grossly normal Neck: supple Respiratory/Chest: + crackles, + rales, + rhonchi, + wheezing Cardiovascular: regular rate, rhythm, no edema, no gallop, no murmur Abdomen: normal bowel sounds, non tender, soft, no organomegaly Extremities: normal range of motion, non-tender, normal inspection, no pedal edema Neurologic/Psychiatric: clinical data manager II-XII nml as tested, no motor/sensory deficits, alert, normal mood/affect, oriented x 3 Skin: normal color, warm/dry, no rash Laboratory Results Last 24 Hours Test 05/21/16 00:00 05/21/16 05:00 05/21/16 09:36 Urine Color YELLOW Urine Appearance CLOUDY Urine pH 7.0 Urine Specific [place] > 1.045 Urine Protein NEG Urine Glucose (UA) NEG Urine Ketones NEG Urine Occult Blood NEG Urine Nitrite NEG Urine Bilirubin NEG Urine Urobilinogen NEG Urine Leukocyte Esterase NEG Urine WBC (Auto) 1-5 /hpf Urine RBC (Auto) 5-10 /hpf Urine Hyaline Casts (Auto) 1-5 /lpf Urine Epithelial Cells (Auto) 20-30 /lpf Urine Bacteria (Auto) NEG White Blood Count 8.40 K/uL Red Blood Count 3.34 M/uL Hemoglobin 10.4 g/dL Hematocrit 31.0 % Mean Corpuscular Volume 92.8 fL Mean Corpuscular Hemoglobin 31.1 pg Mean Corpuscular Hemoglobin Concent 33.5 g/dl Platelet Count 471 K/uL Mean Platelet Volume 8.8 fL Neutrophils (%) (Auto) 89.5 % Lymphocytes (%) (Auto) 8.9 % Monocytes (%) (Auto) 1.1 % Eosinophils (%) (Auto) 0.2 % Basophils (%) (Auto) 0.1 % Neutrophils # (Auto) 7.51 K/uL Lymphocytes # (Auto) 0.75 K/uL Monocytes # (Auto) 0.09 K/uL Eosinophils # (Auto) 0.02 K/uL Basophils # (Auto) 0.01 K/uL RDW Standard Deviation 53.3 fL RDW Coefficient of Variation 15.8 % Immature Granulocyte % (Auto) 0.2 % Immature Granulocyte # (Auto) 0.02 K/uL Sodium Level 137 mmol/L Potassium Level 4.1 mmol/L Chloride Level 101 mmol/L Carbon Dioxide Level 29 mmol/L Anion Gap 7.0 mmol/L Blood Urea Nitrogen 18 mg/dl Creatinine 0.69 mg/dl Est Creatinine Clear Calc Drug Dose 82.3 ml/min Estimated GFR () 106.1 Estimated GFR (Non- 91.6 BUN/Creatinine Ratio 26.2 Random Glucose 101 mg/dl Calcium Level 9.0 mg/dl Magnesium Level 1.9 mg/dl Arterial Blood pH 7.45 Arterial Blood Partial Pressure CO2 41 mmHg Arterial Blood Partial Pressure O2 91 mm/Hg Arterial Blood HCO3 28 mmol/L Arterial Blood Oxygen Saturation 96.9 % Arterial Blood Base Excess 3.6 mEq/L Arterial Blood Gas Delivery 4 LITERS Alex Test POS Assessment and Plan 75-year-old male with an unfortunate history of progressive interstitial lung disease presents to the emergency department with acute on chronic respiratory failure Acute on chronic respiratory failure with hypoxia, multifactorial; severe interstitial lung disease, cavitary lung lesions versus blebs continue DuoNeb scheduled every 6 hours continue steroids. continue Vanco/zosyn/levofloxacin, will also add lactinex check urine legionella and strept CT of the chest noted (large bleb versus cavitary lesions) Pulmonary consult appreciated, AFB ordered, will keep on isolation Continuous pulse ox O2 per protocol Hypertension continue holding Olmesartan at 10 mg twice daily at home. continue Hydralazine 5 mg IV q 6 hr PRN Hypothyroidism Continue Synthroid 50 g daily Restless leg syndrome Continue Remeron 15 mg at night Weight loss possibly due d/t chronic disease Hyperlipidemia Continue simvastatin 10 mg daily DVT prophylaxis -Heparin 5000 units subcutaneous BID -TEDS, SCDs CODE STATUS -CPR/cardioversion ok -NO INTUBATION
[2016-05-21] MEDS: BOOST PLUS VANILLA PO SCH ×2 (19:43)
[2016-05-21] MEDS: MIRTAZAPINE TAB 15 MG TAB PO SCH (19:50)
[2016-05-21] MEDS: SIMVASTATIN 10 MG TAB PO SCH (19:50)
[2016-05-22 00:19] VITALS: BP 131/75; PULSE 76; TEMP 36.4; O2SAT 99
[2016-05-22] MEDS: LEVOFLOXACIN / D5W 750 MG in PREMIXED IN D5W 150 ML IV SCH ×2 (01:59→22:33)
[2016-05-22] MEDS: VANCOMYCIN INJ 700 MG in SODIUM CHLORIDE 0.9% 250ML 250 ML IV SCH ×2 (02:06→13:34)
[2016-05-22] MEDS: PIPERACILL/TAZOBAC IV 3.375 GM in DEXTROSE 5% 100ML IV SCH ×2 (03:55→11:27)
[2016-05-22] MEDS: LEVOTHYROXINE 50 MCG TAB PO SCH (05:24)
[2016-05-22] MEDS: METHYLPREDNISOLONE IV 60 MG in SYRINGE 0 ML IV SCH ×2 (05:25→13:34)
[2016-05-22 07:04] VITALS: PULSE 82; O2SAT 98
[2016-05-22] MEDS: ALBUT/IPRATROP 3MG/0.5MG NEB 3 ML VIAL INH SCH (07:04)
[2016-05-22 07:39] VITALS: BP 159/89; PULSE 86; TEMP 36.8; O2SAT 98
[2016-05-22] MEDS: BOOST PLUS VANILLA PO SCH ×2 (08:00)
[2016-05-22] MEDS: DOCUSATE SODIUM 100 MG CAP PO SCH ×2 (08:03→20:18)
[2016-05-22] MEDS: ASPIRIN 81 MG ECTAB PO SCH (08:04)
[2016-05-22 08:05] LABS: COMPLETE YES; HEMATOCRIT 30.5 % (42-52); IG% 0.3 %; LYMPH % 6.3 %; MEAN CELL VOLUME 89.4 fL (80-100); MEAN CORPUSCULAR HEMOGLOBIN 30.5 pg (25-34); MEAN CORPUSCULAR HGB CONC 34.1 g/dl (32-36); MEAN PLATELET VOLUME 8.6 fL (7.4-10.4); MONO % 1.3 %; NEUT % 92.1 %; PLATELET COUNT 480 K/uL (130-400); RED BLOOD COUNT 3.41 M/uL (4.7-6.1); WHITE BLOOD COUNT 15.94 K/uL (4.8-10.8)
[2016-05-22] MEDS: ARTIFICIAL TEARS OP SOLN OP SCH ×8 (08:05→20:00)
[2016-05-22] MEDS: BOOST VANILLA PO SCH ×6 (08:31→20:00)
[2016-05-22 08:37] LABS: BUN/CREATININE RATIO 29.2 (10-20); CALCIUM 9.2 mg/dl (8.5-10.1); CREATININE 0.86 mg/dl (0.60-1.40); MAGNESIUM 1.9 mg/dl (1.8-2.4); POTASSIUM 4.2 mmol/L (3.5-5.1)
[2016-05-22 08:39] LABS: ALB/GLOB RATIO 0.4 (0.9-2); PHOSPHORUS 2.8 mg/dl (2.5-4.9)
[2016-05-22 11:11] VITALS: PULSE 100; O2SAT 97
[2016-05-22] MEDS: HEPARIN SOD 5000 UNIT/0.5 ML CARP SQ SCH ×2 (11:24→22:32)
[2016-05-22] MEDS ORDERED: ALBUT/IPRATROP 3MG/0.5MG NEB 3 ML VIAL INH PRN (12:45)
[2016-05-22] MEDS: IPRATROPIUM BROMIDE/ALBUTEROL respimat INH INH SCH ×2 (15:28→20:17)
[2016-05-22 15:30] VITALS: BP 156/84; PULSE 89; TEMP 36.8; O2SAT 97
--- NOTE | 2016-05-22 17:11 | PULMONARY PROGRESS NOTE ---
DATE: 05/22/2016 TIME: 04:40 p.m. SUBJECTIVE: The patient has noticed a definite improvement in his cough. As a result, his sputum has decreased somewhat. He also has noticed a definite increase in his appetite. In general, he feels better. The patient did have 1 AFB smear done that was negative. I have ordered another one for today, but someone cancelled it. He should have at least 1 more and perhaps 2 more because the patient is in isolation. He states he has not been short of breath, but he has not been doing any significant activity. He has been pretty much at bed rest. OBJECTIVE: GENERAL: The patient appeared comfortable at rest. He did not cough during this examination. VITAL SIGNS: He remains afebrile. Temperature today is 36.8. He has not had any fever since admission. Heart rate is 90 beats per minute. Blood pressure 156/84. Respiratory rate is 18 breaths per minute. EARS, NOSE, AND THROAT: Exam is unchanged. LUNGS: Rales are heard in both lung amaya posteriorly. They are dry in character. Saturation is 97% on 2 liters nasal cannula. He remains cachectic appearing. ABDOMEN: Soft and nontender. EXTREMITIES: Showed no cyanosis, clubbing or edema. LABORATORY DATA: White count today is up to 15.94. This may be because of steroids. Hemoglobin is 10.4. Platelets are 480,000. Coags are normal. Blood gas done yesterday showed a pH of 7.45 with a pCO2 of 41 and a pO2 of 91 on 4 liters. Electrolytes show sodium 135, potassium 4.2, chloride 99 and bicarb 28. The BUN is 25 with a creatinine of 0.86. Blood sugar was 139. Procalcitonin was 0.1. IMPRESSIONS: 1. Diffuse interstitial lung disease. 2. Left upper lobe and right lower lobe cavity - versus blebs. 3. Progressive weight loss. 4. Pneumomediastinum -- stable. COMMENTS AND RECOMMENDATIONS: The patient is clinically improved. His appetite is better and his coughing is less. I suspect this is related to the steroids he is receiving. He is still on multiple antibiotics including levofloxacin, Zosyn, and vancomycin. We will need to observe his renal function very carefully. It is possible he may actually need some hydration. Based upon the patient's blood gases, I believe he could tolerate bronchoscopy if need be. The purpose would be to simply washout the lungs and get better samples than what we had been already. We will observe him tomorrow and see how his clinical response has been. I am going to decrease the methylprednisolone. He is currently on 60 mg IV q. 8 hours and I believe that is more than what is necessary at present.
--- NOTE | 2016-05-22 17:21 | Progress Note ---
Subjective Date of Service: May 22, 2016. Subjective Pt evaluation today including: conversation w/ patient, physical exam, chart review, lab review, review of inpatient medication list Problem List Medical Problems: (1) Change in mental status Status: Acute (2) Pneumonia Status: Acute (3) Weakness Status: Acute Review of Systems Constitutional: No chills, No fatigue, No fever, No problem reported, No see HPI, No sweats, No weakness, No weight loss Eyes: No diplopia, No discharge, No eye pain, No problem reported, No redness, No see HPI, No worsening of vision ENT: No dental problems, No hearing loss, No nasal symptoms, No problem reported, No see HPI, No sore throat, No tinnitus, No trouble swallowing, No unusual epistaxis Respiratory: + cough, + dyspnea at rest, + dyspnea on exertion, + shortness of breath, + sputum, + wheezing Cardiac: + PND, + chest pain, + claudication, + edema, + orthopnea, + palpitations, + problem reported, + see HPI Abdomen: No GI bleeding, No constipation, No diarrhea, No nausea, No pain, No problem reported, No see HPI, No vomiting Musculoskeletal: No calf pain, No joint pain, No muscle pain, No problem reported, No see HPI, No swelling Male : No dysuria, No hematuria, No incontinence, No nocturia more than once/ night, No problem reported, No see HPI, No sexual dysfunction, No slowing stream , No urinary frequency Neurologic: No balance problems, No memory loss, No numbness/tingling, No paralysis, No problem reported, No see HPI, No vertigo, No weakness Psychiatric: No anhedonism, No anxiety, No depression symptoms, No insomnia, No problem reported, No see HPI, No substance abuse Heme: No abnormal bleeding/bruising, No clotting problems, No night sweats, No problem reported, No see HPI, No swollen lymph nodes Endo: No excessive thirst, No excessive urination, No fatigue, No problem reported, No see HPI Skin: No bleeding, No color change, No itch, No new/changing skin lesions, No problem reported, No rash, No see HPI Medications Current Inpatient Medications Medications (Trade) Dose Ordered Sig/Zayda Route Start Time Stop Time Status Last Admin Dose Admin Hydralazine HCl (HydrALAZINE INJ) 5 mg Q6H PRN IV. 05/20/16 19:15 06/19/16 19:14 Acetaminophen (Tylenol Tab) 650 mg Q4H PRN PO 05/20/16 19:15 06/19/16 19:14 Al Hydrox/Mg Hydrox/Simethicone (Maalox Max Susp) 15 ml Q4H PRN PO 05/20/16 19:15 06/19/16 19:14 Polyethylene (Miralax Powder Packet) 17 gm DAILY PRN PO 05/20/16 19:15 06/19/16 19:14 Ondansetron HCl (Zofran Inj) 4 mg Q6H PRN IV 05/20/16 19:15 06/19/16 19:14 Heparin Sodium (Porcine) (Heparin Sq 5000 Unit/0.5ml) 5,000 unit Q12H SQ 05/20/16 22:00 06/19/16 21:59 05/22/16 11:24 5,000 UNIT Enteral Nutritional Formula (Boost) 1 can TID PO 05/20/16 21:00 06/19/16 20:59 05/22/16 13:34 1 CAN Aspirin (Ecotrin Tab) 81 mg QAM PO 05/21/16 08:00 06/20/16 08:59 05/22/16 08:04 81 MG Docusate Sodium (coLACE CAP) 100 mg BID PO 05/20/16 21:00 06/19/16 20:59 05/22/16 08:03 100 MG Levothyroxine Sodium (Synthroid Tab) 50 mcg DAILYBB PO 05/21/16 06:30 06/20/16 06:59 05/22/16 05:24 50 MCG Mirtazapine (Remeron Tab) 15 mg HS PO 05/20/16 21:00 06/19/16 20:59 05/21/16 19:50 15 MG Simvastatin (Zocor Tab) 10 mg HS PO 05/20/16 21:00 06/19/16 20:59 05/21/16 19:50 10 MG Artificial Tears (Artificial Tears) 1 drops QID OP 05/20/16 21:00 06/19/16 20:59 05/22/16 17:04 1 DROPS Ioversol 116 ml 116 ml UD PRN IV 05/20/16 21:00 3/31/17 20:59 Levofloxacin 750 mg/Prmx 150 ml @ 100 mls/hr Q24H IV 05/20/16 23:00 05/27/16 22:59 05/22/16 01:59 100 MLS/HR Piperacillin Sod/ Tazobactam Sod/ Dextrose (Zosyn Iv/D5 100ml) 115 ml @ 28.75 mls/ hr Q8H IV 05/21/16 04:00 05/28/16 03:59 05/22/16 11:27 28.75 MLS/HR Piperacillin Sod/ Tazobactam Sod (Consult) 1 ea UD PRN N/A 05/20/16 22:45 06/19/16 22:44 Vancomycin HCl 1 ea 1 ea UD PRN N/A 05/21/16 10:00 06/20/16 09:59 Vancomycin HCl/ Sodium Chloride (Vancomycin Inj/ Nss 250ml) 264 ml @ 125 mls/hr Q12H IV 05/21/16 14:00 05/28/16 13:59 05/22/16 13:34 125 MLS/HR Albuterol/ Ipratropium (Combivent Respimat Inh) 1 puffs QID INH 05/22/16 16:00 06/21/16 15:59 05/22/16 15:28 1 PUFFS Albuterol/ Ipratropium 3 ml 3 ml Q4H PRN INH 05/22/16 12:45 06/21/16 12:44 Methylprednisolone Sodium Succinate/ Syringe (Solu-Medrol IV/ Syringe) 0.64 ml @ 1.5 mls/min Q8H IV 05/22/16 22:00 06/21/16 21:59 Objective Vital Signs Date Time Temp Pulse Resp B/P Pulse Ox O2 Delivery O2 Flow Rate FiO2 05/22/16 15:30 36.8 89 18 156/84 97 Nasal Cannula 2.0 05/22/16 11:38 Nasal Cannula 2.0 05/22/16 11:11 100 18 97 Nasal Cannula 2.0 05/22/16 08:00 Nasal Cannula 2.0 05/22/16 07:39 36.8 86 16 159/89 98 Nasal Cannula 2.0 05/22/16 07:04 82 18 98 Nasal Cannula 2.0 05/22/16 00:19 36.4 76 20 131/75 99 Nasal Cannula 2.0 05/22/16 00:00 Nasal Cannula 2.0 05/21/16 22:03 36.2 81 20 135/73 96 Nasal Cannula 2.0 05/21/16 20:20 75 18 95 Nasal Cannula 2.0 Physical Exam General Appearance: WD/WN, no apparent distress Eyes: normal inspection, EOMI ENT: normal ENT inspection, hearing grossly normal Neck: supple Respiratory/Chest: chest non-tender, no accessory muscle use, + crackles, + wheezing Cardiovascular: regular rate, rhythm, no edema, no gallop, no JVD, no murmur Abdomen: normal bowel sounds, non tender, soft, no organomegaly Extremities: normal range of motion, non-tender, normal inspection, no pedal edema, no calf tenderness 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, no motor/sensory deficits, alert, normal mood/affect, oriented x 3 Skin: normal color, warm/dry, no rash Laboratory Results Last 24 Hours Test 05/21/16 17:50 05/22/16 05:30 05/22/16 07:30 Procalcitonin 0.10 ng/mL White Blood Count 15.94 K/uL Red Blood Count 3.41 M/uL Hemoglobin 10.4 g/dL Hematocrit 30.5 % Mean Corpuscular Volume 89.4 fL Mean Corpuscular Hemoglobin 30.5 pg Mean Corpuscular Hemoglobin Concent 34.1 g/dl Platelet Count 480 K/uL Mean Platelet Volume 8.6 fL Neutrophils (%) (Auto) 92.1 % Lymphocytes (%) (Auto) 6.3 % Monocytes (%) (Auto) 1.3 % Eosinophils (%) (Auto) 0.0 % Basophils (%) (Auto) 0.0 % Neutrophils # (Auto) 14.69 K/uL Lymphocytes # (Auto) 1.00 K/uL Monocytes # (Auto) 0.20 K/uL Eosinophils # (Auto) 0.00 K/uL Basophils # (Auto) 0.00 K/uL RDW Standard Deviation 50.1 fL RDW Coefficient of Variation 15.5 % Immature Granulocyte % (Auto) 0.3 % Immature Granulocyte # (Auto) 0.05 K/uL Sodium Level 135 mmol/L Potassium Level 4.2 mmol/L Chloride Level 99 mmol/L Carbon Dioxide Level 28 mmol/L Anion Gap 8.0 mmol/L Blood Urea Nitrogen 25 mg/dl Creatinine 0.86 mg/dl Est Creatinine Clear Calc Drug Dose 66.0 ml/min Estimated GFR () 96.9 Estimated GFR (Non- 83.6 BUN/Creatinine Ratio 29.2 Random Glucose 139 mg/dl Calcium Level 9.2 mg/dl Phosphorus Level 2.8 mg/dl Magnesium Level 1.9 mg/dl Total Bilirubin 0.2 mg/dl Aspartate Amino Transf (AST/SGOT) 23 U/L Alanine Aminotransferase (ALT/SGPT) 22 U/L Alkaline Phosphatase 104 U/L Total Protein 7.4 gm/dl Albumin 2.0 gm/dl Globulin 5.4 gm/dl Albumin/Globulin Ratio 0.4 Assessment and Plan 75-year-old male with an unfortunate history of progressive interstitial lung disease presents to the emergency department with acute on chronic respiratory failure Acute on chronic respiratory failure with hypoxia, multifactorial; severe interstitial lung disease, cavitary lung lesions versus blebs continue DuoNeb scheduled every 6 hours continue steroids. continue levofloxacin, will also add lactinex in the setting of negative cultures will DC Vanco/zosyn/ check urine legionella / pending CT of the chest noted (large bleb versus cavitary lesions) Pulmonary consult appreciated, AFB ordered, will keep on isolation Continuous pulse ox O2 per protocol Hypertension continue holding Olmesartan at 10 mg twice daily at home. continue Hydralazine 5 mg IV q 6 hr PRN Hypothyroidism Continue Synthroid 50 g daily Restless leg syndrome Continue Remeron 15 mg at night Weight loss possibly due d/t chronic disease Hyperlipidemia Continue simvastatin 10 mg daily DVT prophylaxis -Heparin 5000 units subcutaneous BID -TEDS, SCDs CODE STATUS -CPR/cardioversion ok -NO INTUBATION
[2016-05-22] MEDS: SIMVASTATIN 10 MG TAB PO SCH (20:20)
[2016-05-22] MEDS: MIRTAZAPINE TAB 15 MG TAB PO SCH (20:20)
[2016-05-22] MEDS: METHYLPREDNISOLONE IV 40 MG in SYRINGE 0 ML IV SCH (22:33)
[2016-05-22 23:42] VITALS: BP 165/82; PULSE 73; TEMP 36.4; O2SAT 96
[2016-05-23] VITALS: O2SAT 98
[2016-05-23] MEDS ORDERED: VANCOMYCIN TROUGH ONE (01:30)
[2016-05-23] MEDS: METHYLPREDNISOLONE IV 40 MG in SYRINGE 0 ML IV SCH ×2 (06:02→14:19)
[2016-05-23] MEDS: LEVOTHYROXINE 50 MCG TAB PO SCH (06:02)
[2016-05-23 07:20] VITALS: BP 161/89; PULSE 84; TEMP 36.2; O2SAT 100
[2016-05-23 07:21] LABS: COMPLETE YES; HEMATOCRIT 29.8 % (42-52); IG% 0.4 %; LYMPH ABS # 1.03 K/uL (1.2-3.4); MEAN CELL VOLUME 92.3 fL (80-100); MEAN CORPUSCULAR HEMOGLOBIN 30.7 pg (25-34); MEAN CORPUSCULAR HGB CONC 33.2 g/dl (32-36); MEAN PLATELET VOLUME 8.6 fL (7.4-10.4); NEUT % 90.6 %; PLATELET COUNT 480 K/uL (130-400); RED BLOOD COUNT 3.23 M/uL (4.7-6.1); WHITE BLOOD COUNT 17.12 K/uL (4.8-10.8)
[2016-05-23] MEDS: ASPIRIN 81 MG ECTAB PO SCH (07:42)
[2016-05-23] MEDS: ARTIFICIAL TEARS OP SOLN OP SCH ×8 (07:42→20:00)
[2016-05-23] MEDS: BOOST VANILLA PO SCH ×6 (07:44→20:24)
[2016-05-23] MEDS: IPRATROPIUM BROMIDE/ALBUTEROL respimat INH INH SCH ×4 (07:44→20:24)
[2016-05-23 07:54] LABS: BUN/CREATININE RATIO 33.1 (10-20); CALCIUM 8.9 mg/dl (8.5-10.1); CREATININE 0.88 mg/dl (0.60-1.40); MAGNESIUM 2.2 mg/dl (1.8-2.4); POTASSIUM 4.3 mmol/L (3.5-5.1)
[2016-05-23 07:57] LABS: ALB/GLOB RATIO 0.4 (0.9-2)
[2016-05-23] MEDS: DOCUSATE SODIUM 100 MG CAP PO SCH ×2 (08:00→20:25)
[2016-05-23] MEDS: HEPARIN SOD 5000 UNIT/0.5 ML CARP SQ SCH ×2 (10:00→21:02)
[2016-05-23 15:06] VITALS: PULSE 76; O2SAT 94
[2016-05-23 15:45] VITALS: BP_SYST 154; BP_SYST 157; BP_DIAS 83; BP_DIAS 84; PULSE 74; TEMP 37; O2SAT 95
--- NOTE | 2016-05-23 15:49 | PULMONARY PROGRESS NOTE ---
DATE: 05/23/2016 TIME: 3:20 p.m. SUBJECTIVE: The patient states his appetite is still good today. His cough is relatively mild. He was short of breath going to the bathroom and back even with assistance. Physical therapy had worked with him yesterday and he could only tolerate walking about 15 feet. The patient has had some confusion this morning. 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 He states that he had a bad night. He was somewhat confused about where he was at that time. At present, he seems spatially oriented. He does know the day, the month, and the year, etc. OBJECTIVE: GENERAL: The patient looked weak but was comfortable. VITAL SIGNS: He remains afebrile with a temperature of 36.2. HEENT: Unremarkable. His mouth exam was a Mallampati grade 1. No lymph nodes were palpable. CARDIOVASCULAR: Blood pressure was 161/89. Heart rate was 84 per minute. LUNGS: Lung amaya revealed rales bilaterally posteriorly as previous. Saturations were 100% on 2 liters. ABDOMEN: Soft and nontender. EXTREMITIES: Showed no cyanosis, clubbing or edema. LABORATORY DATA: White count today was 17.12, which is increased from prior. This may be due to the steroids. Hemoglobin is 9.9. Platelets were 480,000. Electrolytes were normal. BUN was 29 with a creatinine of 0.88. The TB QuantiFERON is still pending. IMPRESSIONS: 1. Interstitial lung disease. 2. Weight loss. 3. Cavity left upper lobe and right lower lobe. 4. Small pneumomediastinum. We are awaiting the results of the second sputum sent for AFB. This sample was small, according to patient and nurse. I believe it would be feasible to do bronchoscopy just for secretion clearance and/or lavage. I do not believe he is a candidate for biopsy of the lung bronchoscopically. The patient had been seen in November by Dr. Velasquez who at that time thought bronchoscopy could not be done. He may have been speaking; however, about doing transbronchial lung biopsies. I plan on discussing the case with Dr. Velasquez to see if he would feel that patient would be a good candidate for lavage. I am awaiting his call back. We are hoping to do bronk tomorrow. The patient clearly understands the bronchoscopy when I spoke to him. I believe we should significantly decrease the steroids as they may have been causing a little bit of confusion. The Levaquin was changed to oral. MTDD
[2016-05-23 18:03] LABS: ALBUMIN 2.4 G/DL (3.8-4.8); GAMMA GLOBULIN 1.9 G/DL (0.8-1.7); QUANTIF TB AG-NIL <0.00 IU/ML; QUANTIFERON NIL 0.06 IU/ML; TOTAL PROTEIN 7.1 G/DL (6.2-8.3)
--- NOTE | 2016-05-23 20:25 | Progress Note ---
Subjective Date of Service: May 23, 2016. Subjective Pt evaluation today including: conversation w/ patient, physical exam, chart review, lab review, review of studies, conversation w/ technical support consultant (D/W Dr. Motron ) Problem List Medical Problems: (1) Change in mental status Status: Acute (2) Pneumonia Status: Acute (3) Weakness Status: Acute Review of Systems Constitutional: No chills, No fatigue, No fever, No problem reported, No see HPI, No sweats, No weakness, No weight loss Eyes: No diplopia, No discharge, No eye pain, No problem reported, No redness, No see HPI, No worsening of vision ENT: No dental problems, No hearing loss, No nasal symptoms, No problem reported, No see HPI, No sore throat, No tinnitus, No trouble swallowing, No unusual epistaxis Respiratory: + cough, + dyspnea at rest, + dyspnea on exertion, + shortness of breath, No hemoptysis, No problem reported, No see HPI, No sputum, No wheezing Cardiac: No PND, No chest pain, No claudication, No edema, No orthopnea, No palpitations, No problem reported, No see HPI Abdomen: No GI bleeding, No constipation, No diarrhea, No nausea, No pain, No problem reported, No see HPI, No vomiting Musculoskeletal: No calf pain, No joint pain, No muscle pain, No problem reported, No see HPI, No swelling Male : No dysuria, No hematuria, No incontinence, No nocturia more than once/ night, No problem reported, No see HPI, No sexual dysfunction, No slowing stream , No urinary frequency Neurologic: No balance problems, No memory loss, No numbness/tingling, No paralysis, No problem reported, No see HPI, No vertigo, No weakness Psychiatric: No anhedonism, No anxiety, No depression symptoms, No insomnia, No problem reported, No see HPI, No substance abuse Heme: No abnormal bleeding/bruising, No clotting problems, No night sweats, No problem reported, No see HPI, No swollen lymph nodes Endo: No excessive thirst, No excessive urination, No fatigue, No problem reported, No see HPI Skin: No bleeding, No color change, No itch, No new/changing skin lesions, No problem reported, No rash, No see HPI Medications Current Inpatient Medications Medications (Trade) Dose Ordered Sig/Zayda Route Start Time Stop Time Status Last Admin Dose Admin Hydralazine HCl (HydrALAZINE INJ) 5 mg Q6H PRN IV. 05/20/16 19:15 06/19/16 19:14 Acetaminophen (Tylenol Tab) 650 mg Q4H PRN PO 05/20/16 19:15 06/19/16 19:14 Al Hydrox/Mg Hydrox/Simethicone (Maalox Max Susp) 15 ml Q4H PRN PO 05/20/16 19:15 06/19/16 19:14 Polyethylene (Miralax Powder Packet) 17 gm DAILY PRN PO 05/20/16 19:15 06/19/16 19:14 Ondansetron HCl (Zofran Inj) 4 mg Q6H PRN IV 05/20/16 19:15 06/19/16 19:14 Heparin Sodium (Porcine) (Heparin Sq 5000 Unit/0.5ml) 5,000 unit Q12H SQ 05/20/16 22:00 06/19/16 21:59 05/22/16 22:32 5,000 UNIT Enteral Nutritional Formula (Boost) 1 can TID PO 05/20/16 21:00 06/19/16 20:59 05/23/16 14:18 1 CAN Aspirin (Ecotrin Tab) 81 mg QAM PO 05/21/16 08:00 06/20/16 08:59 05/23/16 07:42 81 MG Docusate Sodium (coLACE CAP) 100 mg BID PO 05/20/16 21:00 06/19/16 20:59 05/22/16 20:18 100 MG Levothyroxine Sodium (Synthroid Tab) 50 mcg DAILYBB PO 05/21/16 06:30 06/20/16 06:59 05/23/16 06:02 50 MCG Mirtazapine (Remeron Tab) 15 mg HS PO 05/20/16 21:00 06/19/16 20:59 05/22/16 20:20 15 MG Simvastatin (Zocor Tab) 10 mg HS PO 05/20/16 21:00 06/19/16 20:59 05/22/16 20:20 10 MG Artificial Tears (Artificial Tears) 1 drops QID OP 05/20/16 21:00 06/19/16 20:59 05/23/16 16:58 1 DROPS Ioversol (Optiray 320) 116 ml UD PRN IV 05/20/16 21:00 05/24/16 20:59 Albuterol/ Ipratropium (Combivent Respimat Inh) 1 puffs QID INH 05/22/16 16:00 06/21/16 15:59 05/23/16 16:58 1 PUFFS Albuterol/ Ipratropium (Duoneb) 3 ml Q4H PRN INH 05/22/16 12:45 06/21/16 12:44 Levofloxacin 750 mg 750 mg DAILY@2200 PO 05/23/16 22:00 05/26/16 22:01 Methylprednisolone Sodium Succinate/ Syringe (Solu-Medrol IV/ Syringe) 0.32 ml @ 1.5 mls/min Q12 IV 05/23/16 21:00 06/22/16 20:59 Objective Vital Signs Date Time Temp Pulse Resp B/P Pulse Ox O2 Delivery O2 Flow Rate FiO2 05/23/16 16:30 Nasal Cannula 2.0 05/23/16 15:45 37.0 74 16 157/83 95 154/84 05/23/16 15:06 76 94 05/23/16 08:00 Nasal Cannula 2.0 05/23/16 07:20 36.2 84 22 161/89 100 Nasal Cannula 2.0 05/23/16 00:00 98 Nasal Cannula 2.0 05/22/16 23:42 36.4 73 18 165/82 96 2.0 Physical Exam General Appearance: no apparent distress Eyes: normal inspection, EOMI ENT: normal ENT inspection, hearing grossly normal Neck: supple, no adenopathy, thyroid normal, no JVD Respiratory/Chest: chest non-tender, no accessory muscle use, + respiratory distress, + decreased breath sounds, + crackles, + rales, + rhonchi, + wheezing Cardiovascular: regular rate, rhythm, no edema, no gallop, no JVD, no murmur Abdomen: normal bowel sounds, non tender, soft, no organomegaly Extremities: normal range of motion, non-tender, normal inspection, no pedal edema, no calf tenderness 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, no motor/sensory deficits, alert, normal mood/affect, oriented x 3 Skin: normal color, warm/dry, no rash Laboratory Results Last 24 Hours Test 05/23/16 01:36 05/23/16 06:47 Vancomycin Level Trough 12.4 mcg/ml White Blood Count 17.12 K/uL Red Blood Count 3.23 M/uL Hemoglobin 9.9 g/dL Hematocrit 29.8 % Mean Corpuscular Volume 92.3 fL Mean Corpuscular Hemoglobin 30.7 pg Mean Corpuscular Hemoglobin Concent 33.2 g/dl Platelet Count 480 K/uL Mean Platelet Volume 8.6 fL Neutrophils (%) (Auto) 90.6 % Lymphocytes (%) (Auto) 6.0 % Monocytes (%) (Auto) 3.0 % Eosinophils (%) (Auto) 0.0 % Basophils (%) (Auto) 0.0 % Neutrophils # (Auto) 15.51 K/uL Lymphocytes # (Auto) 1.03 K/uL Monocytes # (Auto) 0.52 K/uL Eosinophils # (Auto) 0.00 K/uL Basophils # (Auto) 0.00 K/uL RDW Standard Deviation 53.0 fL RDW Coefficient of Variation 15.7 % Immature Granulocyte % (Auto) 0.4 % Immature Granulocyte # (Auto) 0.06 K/uL Sodium Level 137 mmol/L Potassium Level 4.3 mmol/L Chloride Level 101 mmol/L Carbon Dioxide Level 32 mmol/L Anion Gap 4.0 mmol/L Blood Urea Nitrogen 29 mg/dl Creatinine 0.88 mg/dl Est Creatinine Clear Calc Drug Dose 56.3 ml/min Estimated GFR () 96.0 Estimated GFR (Non- 82.9 BUN/Creatinine Ratio 33.1 Random Glucose 92 mg/dl Calcium Level 8.9 mg/dl Magnesium Level 2.2 mg/dl Total Bilirubin 0.2 mg/dl Aspartate Amino Transf (AST/SGOT) 35 U/L Alanine Aminotransferase (ALT/SGPT) 41 U/L Alkaline Phosphatase 97 U/L Total Protein 6.8 gm/dl Albumin 2.1 gm/dl Globulin 4.7 gm/dl Albumin/Globulin Ratio 0.4 Assessment and Plan 75-year-old male with an unfortunate history of progressive interstitial lung disease presents to the emergency department with acute on chronic respiratory failure Acute on chronic respiratory failure with hypoxia, multifactorial; severe interstitial lung disease, cavitary lung lesions versus blebs continue DuoNeb scheduled every 6 hours continue steroids. continue levofloxacin, will also add lactinex in the setting of negative cultures will DC Vanco/zosyn/ check urine legionella / pending CT of the chest noted (large bleb versus cavitary lesions) Pulmonary consult appreciated, AFB ordered, will keep on isolation Continuous pulse ox O2 per protocol fungitel is pending QuantiFerone is negative Hypertension continue holding Olmesartan at 10 mg twice daily at home. continue Hydralazine 5 mg IV q 6 hr PRN Hypothyroidism Continue Synthroid 50 g daily Restless leg syndrome Continue Remeron 15 mg at night Weight loss possibly due d/t chronic disease Hyperlipidemia Continue simvastatin 10 mg daily DVT prophylaxis -Heparin 5000 units subcutaneous BID -TEDS, SCDs CODE STATUS -CPR/cardioversion ok -NO INTUBATION
[2016-05-23] MEDS: SIMVASTATIN 10 MG TAB PO SCH (20:26)
[2016-05-23] MEDS: MIRTAZAPINE TAB 15 MG TAB PO SCH (20:26)
[2016-05-23] MEDS: METHYLPREDNISOLONE IV 20 MG in SYRINGE 0 ML IV SCH (21:02)
[2016-05-23] MEDS: LEVOFLOXACIN 750 MG TAB PO SCH (21:02)
[2016-05-23 23:52] VITALS: BP 160/87; PULSE 62; TEMP 36.2; O2SAT 97
[2016-05-24] VITALS (15 sets, daily range): BP systolic 117–160; BP diastolic 65–95; PULSE 60–85; TEMP 36.2–36.5; O2SAT 98–100
[2016-05-24 05:55] LABS: BASO % 0.1 %; BASO ABS # 0.01 K/uL (0-0.2); COMPLETE YES; HEMATOCRIT 30.5 % (42-52); IG% 0.2 %; LYMPH % 8.8 %; LYMPH ABS # 1.06 K/uL (1.2-3.4); MEAN CELL VOLUME 92.4 fL (80-100); MEAN CORPUSCULAR HEMOGLOBIN 30.6 pg (25-34); MEAN CORPUSCULAR HGB CONC 33.1 g/dl (32-36); MEAN PLATELET VOLUME 8.6 fL (7.4-10.4); MONO % 6.7 %; NEUT % 84.2 %; PLATELET COUNT 467 K/uL (130-400); WHITE BLOOD COUNT 11.99 K/uL (4.8-10.8)
[2016-05-24] MEDS: LEVOTHYROXINE 50 MCG TAB PO SCH (06:02)
[2016-05-24 06:26] LABS: BUN/CREATININE RATIO 37.2 (10-20); CALCIUM 8.7 mg/dl (8.5-10.1); CREATININE 0.76 mg/dl (0.60-1.40); MAGNESIUM 2.1 mg/dl (1.8-2.4); POTASSIUM 4.4 mmol/L (3.5-5.1)
--- NOTE | 2016-05-24 07:43 | Procedure Note ---
Pre-Mod Sedation Assessment General Date of Moderate Sedation: May 24, 2016. Vital Signs: Vital Signs Past 12 Hours Date Time Temp Pulse Resp B/P Pulse Ox O2 Delivery O2 Flow Rate FiO2 05/24/16 07:12 36.2 62 18 130/65 99 Nasal Cannula 2.0 05/24/16 00:00 Nasal Cannula 2.0 05/23/16 23:52 36.2 62 20 160/87 97 Nasal Cannula 2.0 Review Cardiovascular: regular rate, rhythm, no edema, no gallop, no JVD, no murmur, normal peripheral pulses Abdomen: normal bowel sounds, non tender, soft, no organomegaly, no pulsatile mass Lungs: chest non-tender, + decreased breath sounds, + rhonchi Pre-Sedation Airway Assessment Oral Cavity: WNL Able to Visualize Vocal Cords: Yes Short Thick Neck: No Hx of Sleep Apnea: No Smoking Status: Former Smoker Mallampati Classification: Class III ASA Classification: Class IV Procedure Planning Contraindications-for Mod Sed: None Yes Notes The planned sedation has been discussed with the patient and consent obtained. I have identified the patient, determined the appropriateness of sedation and have assessed the patient immediately prior to the procedure. All medicine(s) and interventions are by my order.
--- NOTE | 2016-05-24 07:43 | History & Physical Bridge Note ---
H&P Re-Evaluation Bridge Note: I have examined the patient, reviewed the History & Physical and in the interval since the performance of the History & Physical I have noted the following changes of clinical significance: No changes noted
[2016-05-24] MEDS: IPRATROPIUM BROMIDE/ALBUTEROL respimat INH INH SCH ×4 (08:00→19:53)
[2016-05-24] MEDS: ARTIFICIAL TEARS OP SOLN OP SCH ×8 (08:00→19:53)
--- NOTE | 2016-05-24 08:52 | Procedure Note ---
Post-Moderate Sedation Plan General Date of Moderate Sedation May 24, 2016. Vital Signs: Vital Signs Past 12 Hours Date Time Temp Pulse Resp B/P Pulse Ox O2 Delivery O2 Flow Rate FiO2 05/24/16 08:00 66 17 160/88 99 Nasal Cannula 2.0 05/24/16 07:12 36.2 62 18 130/65 99 Nasal Cannula 2.0 05/24/16 00:00 Nasal Cannula 2.0 05/23/16 23:52 36.2 62 20 160/87 97 Nasal Cannula 2.0 Review - Discharge Plan Post Moderate Sedation Plan: On clinical assessment, the patient appears to have tolerated the conscious sedation without complications. Patient is recovering as anticipated. Patient will be returned to his inpatient room and monitored.
[2016-05-24] MEDS ORDERED: NURSING VERBAL MED ORDER ONE (09:15)
[2016-05-24] MEDS ORDERED: FENTANYL CITRATE INJ 50 MCG/1 ML 2 ML VIAL IV SCH (10:00)
[2016-05-24] MEDS ORDERED: MIDAZOLAM HCL 5 MG/ML 1 ML VIAL IV SCH (10:00)
[2016-05-24] MEDS: HEPARIN SOD 5000 UNIT/0.5 ML CARP SQ SCH ×2 (10:46→20:49)
[2016-05-24] MEDS: BOOST VANILLA PO SCH ×6 (10:47→19:53)
[2016-05-24] MEDS: ASPIRIN 81 MG ECTAB PO SCH (11:59)
[2016-05-24] MEDS: DOCUSATE SODIUM 100 MG CAP PO SCH ×2 (11:59→19:54)
[2016-05-24] MEDS: METHYLPREDNISOLONE IV 20 MG in SYRINGE 0 ML IV SCH ×2 (12:04→20:48)
--- NOTE | 2016-05-24 18:42 | Progress Note ---
Subjective Date of Service: May 24, 2016. Subjective Pt evaluation today including: conversation w/ patient, physical exam, chart review, lab review, review of inpatient medication list Problem List Medical Problems: (1) Change in mental status Status: Acute (2) Pneumonia Status: Acute (3) Weakness Status: Acute Review of Systems Constitutional: No chills, No fatigue, No fever, No problem reported, No see HPI, No sweats, No weakness, No weight loss Eyes: No diplopia, No discharge, No eye pain, No problem reported, No redness, No see HPI, No worsening of vision ENT: No dental problems, No hearing loss, No nasal symptoms, No problem reported, No see HPI, No sore throat, No tinnitus, No trouble swallowing, No unusual epistaxis Respiratory: + cough, + dyspnea at rest, + dyspnea on exertion, + shortness of breath Cardiac: No PND, No chest pain, No claudication, No edema, No orthopnea, No palpitations, No problem reported, No see HPI Abdomen: No GI bleeding, No constipation, No diarrhea, No nausea, No pain, No problem reported, No see HPI, No vomiting Musculoskeletal: No calf pain, No joint pain, No muscle pain, No problem reported, No see HPI, No swelling Male : No dysuria, No hematuria, No incontinence, No nocturia more than once/ night, No problem reported, No see HPI, No sexual dysfunction, No slowing stream , No urinary frequency Neurologic: No balance problems, No memory loss, No numbness/tingling, No paralysis, No problem reported, No see HPI, No vertigo, No weakness Psychiatric: No anhedonism, No anxiety, No depression symptoms, No insomnia, No problem reported, No see HPI, No substance abuse Heme: No abnormal bleeding/bruising, No clotting problems, No night sweats, No problem reported, No see HPI, No swollen lymph nodes Endo: No excessive thirst, No excessive urination, No fatigue, No problem reported, No see HPI Skin: No bleeding, No color change, No itch, No new/changing skin lesions, No problem reported, No rash, No see HPI Medications Current Inpatient Medications Medications (Trade) Dose Ordered Sig/Zayda Route Start Time Stop Time Status Last Admin Dose Admin Hydralazine HCl (HydrALAZINE INJ) 5 mg Q6H PRN IV. 05/20/16 19:15 06/19/16 19:14 Acetaminophen (Tylenol Tab) 650 mg Q4H PRN PO 05/20/16 19:15 06/19/16 19:14 Al Hydrox/Mg Hydrox/Simethicone (Maalox Max Susp) 15 ml Q4H PRN PO 05/20/16 19:15 06/19/16 19:14 Polyethylene (Miralax Powder Packet) 17 gm DAILY PRN PO 05/20/16 19:15 06/19/16 19:14 Ondansetron HCl (Zofran Inj) 4 mg Q6H PRN IV 05/20/16 19:15 06/19/16 19:14 Heparin Sodium (Porcine) (Heparin Sq 5000 Unit/0.5ml) 5,000 unit Q12H SQ 05/20/16 22:00 06/19/16 21:59 05/23/16 21:02 5,000 UNIT Enteral Nutritional Formula (Boost) 1 can TID PO 05/20/16 21:00 06/19/16 20:59 05/23/16 20:24 1 CAN Aspirin (Ecotrin Tab) 81 mg QAM PO 05/21/16 08:00 06/20/16 08:59 05/23/16 07:42 81 MG Docusate Sodium (coLACE CAP) 100 mg BID PO 05/20/16 21:00 06/19/16 20:59 05/23/16 20:25 100 MG Levothyroxine Sodium (Synthroid Tab) 50 mcg DAILYBB PO 05/21/16 06:30 06/20/16 06:59 05/23/16 06:02 50 MCG Mirtazapine (Remeron Tab) 15 mg HS PO 05/20/16 21:00 06/19/16 20:59 05/23/16 20:26 15 MG Simvastatin (Zocor Tab) 10 mg HS PO 05/20/16 21:00 06/19/16 20:59 05/23/16 20:26 10 MG Artificial Tears (Artificial Tears) 1 drops QID OP 05/20/16 21:00 06/19/16 20:59 05/24/16 16:46 1 DROPS Ioversol (Optiray 320) 116 ml UD PRN IV 05/20/16 21:00 05/24/16 20:59 Albuterol/ Ipratropium (Combivent Respimat Inh) 1 puffs QID INH 05/22/16 16:00 06/21/16 15:59 05/24/16 16:46 1 PUFFS Albuterol/ Ipratropium (Duoneb) 3 ml Q4H PRN INH 05/22/16 12:45 06/21/16 12:44 Levofloxacin 750 mg 750 mg DAILY@2200 PO 05/23/16 22:00 05/26/16 22:01 05/23/16 21:02 750 MG Methylprednisolone Sodium Succinate/ Syringe (Solu-Medrol IV/ Syringe) 0.32 ml @ 1.5 mls/min Q12 IV 05/23/16 21:00 06/22/16 20:59 05/24/16 12:04 1.5 MLS/MIN Objective Vital Signs Date Time Temp Pulse Resp B/P Pulse Ox O2 Delivery O2 Flow Rate FiO2 05/24/16 16:00 Nasal Cannula 2.0 05/24/16 14:48 36.5 85 18 159/82 99 05/24/16 11:07 36.2 81 20 158/95 99 05/24/16 09:45 60 22 148/86 100 Nasal Cannula 3.0 05/24/16 09:30 36.4 66 17 139/77 100 Nasal Cannula 2.0 05/24/16 09:20 68 18 117/91 98 Nasal Cannula 4.0 05/24/16 09:10 70 17 127/88 98 Nasal Cannula 4.0 05/24/16 09:00 68 17 141/85 98 Nasal Cannula 6.0 05/24/16 09:00 Nasal Cannula 2.0 05/24/16 08:50 36.2 78 17 141/85 98 Mask 6.0 05/24/16 08:50 78 17 141/85 99 Mask 6.0 05/24/16 08:45 77 18 137/83 99 Mask 6.0 05/24/16 08:40 77 18 147/85 99 Mask 6.0 05/24/16 08:35 70 18 148/86 99 Mask 6.0 05/24/16 08:30 70 18 148/86 99 Nasal Cannula 2.0 05/24/16 08:20 66 17 151/89 99 Nasal Cannula 2.0 05/24/16 08:00 66 17 160/88 99 Nasal Cannula 2.0 05/24/16 07:12 36.2 62 18 130/65 99 Nasal Cannula 2.0 05/24/16 00:00 Nasal Cannula 2.0 05/23/16 23:52 36.2 62 20 160/87 97 Nasal Cannula 2.0 Physical Exam General Appearance: no apparent distress Eyes: normal inspection, EOMI ENT: normal ENT inspection, hearing grossly normal, TMs normal Neck: supple Respiratory/Chest: chest non-tender, + respiratory distress, + accessory muscle use, + crackles Cardiovascular: regular rate, rhythm, no edema, no gallop, no JVD Abdomen: normal bowel sounds, non tender, soft, no organomegaly, no pulsatile mass Extremities: normal range of motion, non-tender, normal inspection, no pedal edema, no calf tenderness 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, no motor/sensory deficits, alert, normal mood/affect, oriented x 3 Skin: normal color, warm/dry, no rash Laboratory Results Last 24 Hours Test 05/24/16 05:10 05/24/16 08:45 White Blood Count 11.99 K/uL Red Blood Count 3.30 M/uL Hemoglobin 10.1 g/dL Hematocrit 30.5 % Mean Corpuscular Volume 92.4 fL Mean Corpuscular Hemoglobin 30.6 pg Mean Corpuscular Hemoglobin Concent 33.1 g/dl Platelet Count 467 K/uL Mean Platelet Volume 8.6 fL Neutrophils (%) (Auto) 84.2 % Lymphocytes (%) (Auto) 8.8 % Monocytes (%) (Auto) 6.7 % Eosinophils (%) (Auto) 0.0 % Basophils (%) (Auto) 0.1 % Neutrophils # (Auto) 10.10 K/uL Lymphocytes # (Auto) 1.06 K/uL Monocytes # (Auto) 0.80 K/uL Eosinophils # (Auto) 0.00 K/uL Basophils # (Auto) 0.01 K/uL RDW Standard Deviation 52.9 fL RDW Coefficient of Variation 15.7 % Immature Granulocyte % (Auto) 0.2 % Immature Granulocyte # (Auto) 0.02 K/uL Sodium Level 138 mmol/L Potassium Level 4.4 mmol/L Chloride Level 103 mmol/L Carbon Dioxide Level 29 mmol/L Anion Gap 6.0 mmol/L Blood Urea Nitrogen 28 mg/dl Creatinine 0.76 mg/dl Est Creatinine Clear Calc Drug Dose 65.2 ml/min Estimated GFR () 102.0 Estimated GFR (Non- 88.0 BUN/Creatinine Ratio 37.2 Random Glucose 91 mg/dl Calcium Level 8.7 mg/dl Magnesium Level 2.1 mg/dl Assessment and Plan 75-year-old male with an unfortunate history of progressive interstitial lung disease presents to the emergency department with acute on chronic respiratory failure today S/P bronchoscopy that went uneventful during exam he was noticed to be SOB, O2 cannula fell and his sat was 86% Acute on chronic respiratory failure with hypoxia, multifactorial; severe interstitial lung disease, cavitary lung lesions versus blebs continue DuoNeb scheduled every 6 hours continue steroids. continue levofloxacin, will also add lactinex in the setting of negative cultures will DC Vanco/zosyn/ check urine legionella / pending CT of the chest noted (large bleb versus cavitary lesions) Pulmonary consult appreciated, AFB ordered, will keep on isolation Continuous pulse ox O2 per protocol fungitel is pending QuantiFerone is negative Hypertension continue holding Olmesartan at 10 mg twice daily at home. continue Hydralazine 5 mg IV q 6 hr PRN Hypothyroidism Continue Synthroid 50 g daily Restless leg syndrome Continue Remeron 15 mg at night Weight loss possibly due d/t chronic disease Hyperlipidemia Continue simvastatin 10 mg daily DVT prophylaxis -Heparin 5000 units subcutaneous BID -TEDS, SCDs CODE STATUS -CPR/cardioversion ok -NO INTUBATION
[2016-05-24] MEDS: LEVOFLOXACIN 750 MG TAB PO SCH (20:46)
[2016-05-24] MEDS: MIRTAZAPINE TAB 15 MG TAB PO SCH (20:46)
[2016-05-24] MEDS: SIMVASTATIN 10 MG TAB PO SCH (20:47)
[2016-05-25 00:35] VITALS: BP 153/84; PULSE 94; TEMP 36.4; O2SAT 99
[2016-05-25 01:46] LABS: FUNGITELL (1-3)-B-D-GLUCAN* <31 pg/mL; FUNGITELL INTERP NEGATIVE
[2016-05-25] MEDS: LEVOTHYROXINE 50 MCG TAB PO SCH (05:49)
[2016-05-25 06:30] LABS: BASO % 0.1 %; BASO ABS # 0.01 K/uL (0-0.2); COMPLETE YES; HEMATOCRIT 31.7 % (42-52); IG% 0.3 %; LYMPH % 12.7 %; LYMPH ABS # 1.48 K/uL (1.2-3.4); MEAN CELL VOLUME 92.4 fL (80-100); MEAN CORPUSCULAR HEMOGLOBIN 30.3 pg (25-34); MEAN CORPUSCULAR HGB CONC 32.8 g/dl (32-36); MEAN PLATELET VOLUME 8.5 fL (7.4-10.4); MONO % 5.9 %; PLATELET COUNT 458 K/uL (130-400); RED BLOOD COUNT 3.43 M/uL (4.7-6.1); WHITE BLOOD COUNT 11.62 K/uL (4.8-10.8)
[2016-05-25 06:56] LABS: BUN/CREATININE RATIO 33.5 (10-20); CALCIUM 8.7 mg/dl (8.5-10.1); CREATININE 0.79 mg/dl (0.60-1.40); MAGNESIUM 2.3 mg/dl (1.8-2.4); PHOSPHORUS 2.2 mg/dl (2.5-4.9); POTASSIUM 4.3 mmol/L (3.5-5.1)
[2016-05-25 07:23] VITALS: BP 161/88; PULSE 66; TEMP 36.5; O2SAT 100
[2016-05-25] MEDS: METHYLPREDNISOLONE IV 20 MG in SYRINGE 0 ML IV SCH (08:12)
[2016-05-25] MEDS: DOCUSATE SODIUM 100 MG CAP PO SCH ×2 (08:12→20:04)
[2016-05-25] MEDS: ASPIRIN 81 MG ECTAB PO SCH (08:12)
[2016-05-25] MEDS: BOOST VANILLA PO SCH ×6 (08:12→20:14)
[2016-05-25] MEDS: ARTIFICIAL TEARS OP SOLN OP SCH ×8 (08:13→20:05)
[2016-05-25] MEDS: IPRATROPIUM BROMIDE/ALBUTEROL respimat INH INH SCH ×4 (08:13→20:04)
[2016-05-25] MEDS: HEPARIN SOD 5000 UNIT/0.5 ML CARP SQ SCH ×2 (09:19→20:10)
[2016-05-25] MEDS ORDERED: POLYETHYLENE (MIRALAX) 17 GM PACK PO ONE (12:45)
--- NOTE | 2016-05-25 13:24 | PULMONARY PROGRESS NOTE ---
DATE: 05/25/2016 DATE: 05/25/2016. TIME: 12:45 p.m. SUBJECTIVE: The patient is very frustrated today. I believe he is depressed. He has not had a bowel movement in 4 days. He is asking for something to help him go. He does not feel that he needs to go however. He is not all uncomfortable in the abdomen. His cough and shortness of breath are about the same. Because he has been very inactive he does not feel overtly dyspneic. He states he has not gotten out of bed in a couple of days. I explained to him we need to get him up and about and walking, although still in his room. The bronchoscopy was done yesterday. The fungal smear from the washings was negative. The AFB stain, however, is still pending. The Gram stain from the washings showed many polys, but rare yeast and rare gram positive bacilli. OBJECTIVE: GENERAL: The patient looks depressed. He appears in no distress. VITAL SIGNS: Temperature is 36.5. Heart rate is 66 per minute and regular. Blood pressure 161/88. LUNGS: Lung amaya reveal diffuse rales bilaterally. Saturation is 100% on 2 liters. ABDOMEN: Soft and nontender. Bowel sounds were well heard. EXTREMITIES: Showed no cyanosis, clubbing or edema. LABORATORY DATA: White count today is 11.62. Hemoglobin is 10.4. Platelets 458,000. Electrolytes show sodium 137, potassium 4.3, chloride 101, bicarbonate 31. BUN is 26, creatinine of 0.79. The TB QuantiFERON is negative. Thus, I believe we can take the patient out of isolation. This along with the fact that he has 2 negative AFB smears. AFB from bronchoscopy is still pending. IMPRESSIONS: 1. Interstitial lung disease. 2. Cavitary disease left upper lobe and right lower lobe. 3. Weight loss. 4. Pneumomediastinum. COMMENTS AND RECOMMENDATIONS: Will order some MiraLax for the patient. We will get him out of bed today. Will discontinue isolation in light of the negative QuantiFERON. The patient has asked me to call his and discussed his care with her. I will attempt to reach her very soon. I anticipate the patient will be able to be discharged on Friday in all likelihood. I believe his prognosis is poor.
[2016-05-25 14:56] VITALS: BP 150/84; PULSE 86; TEMP 36.4; O2SAT 95
--- NOTE | 2016-05-25 16:36 | Progress Note ---
Subjective Date of Service: May 25, 2016. Subjective Pt evaluation today including: conversation w/ patient, physical exam, chart review, lab review, review of inpatient medication list Problem List Medical Problems: (1) Change in mental status Status: Acute (2) Pneumonia Status: Acute (3) Weakness Status: Acute Review of Systems Constitutional: No chills, No fatigue, No fever, No problem reported, No see HPI, No sweats, No weakness, No weight loss Eyes: No diplopia, No discharge, No eye pain, No problem reported, No redness, No see HPI, No worsening of vision ENT: No dental problems, No hearing loss, No nasal symptoms, No problem reported, No see HPI, No sore throat, No tinnitus, No trouble swallowing, No unusual epistaxis Respiratory: + cough, + dyspnea at rest, + dyspnea on exertion, + shortness of breath, No hemoptysis, No problem reported, No see HPI, No wheezing Cardiac: No PND, No chest pain, No claudication, No edema, No orthopnea, No palpitations, No problem reported, No see HPI Abdomen: No GI bleeding, No constipation, No diarrhea, No nausea, No pain, No problem reported, No see HPI, No vomiting Musculoskeletal: No calf pain, No joint pain, No muscle pain, No problem reported, No see HPI, No swelling Male : No dysuria, No hematuria, No incontinence, No nocturia more than once/ night, No problem reported, No see HPI, No sexual dysfunction, No slowing stream , No urinary frequency Neurologic: No balance problems, No memory loss, No numbness/tingling, No paralysis, No problem reported, No see HPI, No vertigo, No weakness Psychiatric: No anhedonism, No anxiety, No depression symptoms, No insomnia, No problem reported, No see HPI, No substance abuse Heme: No abnormal bleeding/bruising, No clotting problems, No night sweats, No problem reported, No see HPI, No swollen lymph nodes Endo: No excessive thirst, No excessive urination, No fatigue, No problem reported, No see HPI Skin: No bleeding, No color change, No itch, No new/changing skin lesions, No problem reported, No rash, No see HPI Medications Current Inpatient Medications Medications (Trade) Dose Ordered Sig/Zayda Route Start Time Stop Time Status Last Admin Dose Admin Hydralazine HCl (HydrALAZINE INJ) 5 mg Q6H PRN IV. 05/20/16 19:15 06/19/16 19:14 Acetaminophen (Tylenol Tab) 650 mg Q4H PRN PO 05/20/16 19:15 06/19/16 19:14 Al Hydrox/Mg Hydrox/Simethicone (Maalox Max Susp) 15 ml Q4H PRN PO 05/20/16 19:15 06/19/16 19:14 Polyethylene (Miralax Powder Packet) 17 gm DAILY PRN PO 05/20/16 19:15 06/19/16 19:14 Ondansetron HCl (Zofran Inj) 4 mg Q6H PRN IV 05/20/16 19:15 06/19/16 19:14 Heparin Sodium (Porcine) (Heparin Sq 5000 Unit/0.5ml) 5,000 unit Q12H SQ 05/20/16 22:00 06/19/16 21:59 05/25/16 09:19 5,000 UNIT Enteral Nutritional Formula (Boost) 1 can TID PO 05/20/16 21:00 06/19/16 20:59 05/25/16 12:46 1 CAN Aspirin (Ecotrin Tab) 81 mg QAM PO 05/21/16 08:00 06/20/16 08:59 05/25/16 08:12 81 MG Docusate Sodium (coLACE CAP) 100 mg BID PO 05/20/16 21:00 06/19/16 20:59 05/25/16 08:12 100 MG Levothyroxine Sodium (Synthroid Tab) 50 mcg DAILYBB PO 05/21/16 06:30 06/20/16 06:59 05/25/16 05:49 50 MCG Mirtazapine (Remeron Tab) 15 mg HS PO 05/20/16 21:00 06/19/16 20:59 05/24/16 20:46 15 MG Simvastatin (Zocor Tab) 10 mg HS PO 05/20/16 21:00 06/19/16 20:59 05/24/16 20:47 10 MG Artificial Tears (Artificial Tears) 1 drops QID OP 05/20/16 21:00 06/19/16 20:59 05/25/16 12:46 1 DROPS Albuterol/ Ipratropium (Combivent Respimat Inh) 1 puffs QID INH 05/22/16 16:00 06/21/16 15:59 05/25/16 12:46 1 PUFFS Albuterol/ Ipratropium (Duoneb) 3 ml Q4H PRN INH 05/22/16 12:45 06/21/16 12:44 Levofloxacin (Levaquin Tab) 750 mg DAILY@2200 PO 05/23/16 22:00 05/26/16 22:01 05/24/16 20:46 750 MG Prednisone (PredniSONE TAB) 30 mg DAILY PO 05/26/16 08:00 06/25/16 07:59 Objective Vital Signs Date Time Temp Pulse Resp B/P Pulse Ox O2 Delivery O2 Flow Rate FiO2 05/25/16 15:32 Nasal Cannula 2.0 05/25/16 14:56 36.4 86 20 150/84 95 2.0 05/25/16 11:02 Nasal Cannula 2.0 05/25/16 07:23 36.5 66 18 161/88 100 2.0 05/25/16 00:35 36.4 94 20 153/84 99 Nasal Cannula 2.0 05/25/16 00:00 Nasal Cannula 2.0 Physical Exam General Appearance: no apparent distress Eyes: normal inspection, EOMI ENT: normal ENT inspection, hearing grossly normal Neck: supple Respiratory/Chest: chest non-tender, no accessory muscle use, + decreased breath sounds, + crackles, + rales, + wheezing Cardiovascular: regular rate, rhythm, no edema, no gallop, no JVD, no murmur Abdomen: normal bowel sounds, non tender, soft, no organomegaly Extremities: normal range of motion, non-tender, normal inspection, no pedal edema, no calf tenderness 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, no motor/sensory deficits, alert, normal mood/affect, oriented x 3 Skin: normal color, warm/dry, no rash Laboratory Results Last 24 Hours Test 05/24/16 19:50 05/25/16 06:08 Procalcitonin < 0.05 ng/mL White Blood Count 11.62 K/uL Red Blood Count 3.43 M/uL Hemoglobin 10.4 g/dL Hematocrit 31.7 % Mean Corpuscular Volume 92.4 fL Mean Corpuscular Hemoglobin 30.3 pg Mean Corpuscular Hemoglobin Concent 32.8 g/dl Platelet Count 458 K/uL Mean Platelet Volume 8.5 fL Neutrophils (%) (Auto) 81.0 % Lymphocytes (%) (Auto) 12.7 % Monocytes (%) (Auto) 5.9 % Eosinophils (%) (Auto) 0.0 % Basophils (%) (Auto) 0.1 % Neutrophils # (Auto) 9.42 K/uL Lymphocytes # (Auto) 1.48 K/uL Monocytes # (Auto) 0.68 K/uL Eosinophils # (Auto) 0.00 K/uL Basophils # (Auto) 0.01 K/uL RDW Standard Deviation 53.9 fL RDW Coefficient of Variation 15.8 % Immature Granulocyte % (Auto) 0.3 % Immature Granulocyte # (Auto) 0.03 K/uL Sodium Level 137 mmol/L Potassium Level 4.3 mmol/L Chloride Level 101 mmol/L Carbon Dioxide Level 31 mmol/L Anion Gap 5.0 mmol/L Blood Urea Nitrogen 26 mg/dl Creatinine 0.79 mg/dl Est Creatinine Clear Calc Drug Dose 62.7 ml/min Estimated GFR () 100.4 Estimated GFR (Non- 86.6 BUN/Creatinine Ratio 33.5 Random Glucose 96 mg/dl Calcium Level 8.7 mg/dl Phosphorus Level 2.2 mg/dl Magnesium Level 2.3 mg/dl Assessment and Plan 75-year-old male with an unfortunate history of progressive interstitial lung disease presents to the emergency department with acute on chronic respiratory failure S/P bronchoscopy 05/24 that went uneventful feeling better today with Os sat of 99% on 2L at rest Acute on chronic respiratory failure with hypoxia, multifactorial; severe interstitial lung disease, cavitary lung lesions versus blebs continue DuoNeb scheduled every 6 hours continue steroids. started tapering dose of prednisone by Dr. Morton continue levofloxacin, will also add lactinex in the setting of negative cultures will DC Vanco/zosyn/ check urine legionella / pending CT of the chest noted (large bleb versus cavitary lesions) Pulmonary consult appreciated, AFB ordered, will keep on isolation Continuous pulse ox O2 per protocol fungitel is pending QuantiFerone is negative Hypertension continue holding Olmesartan at 10 mg twice daily at home. continue Hydralazine 5 mg IV q 6 hr PRN Hypothyroidism Continue Synthroid 50 g daily Restless leg syndrome Continue Remeron 15 mg at night Weight loss possibly due d/t chronic disease Hyperlipidemia Continue simvastatin 10 mg daily DVT prophylaxis -Heparin 5000 units subcutaneous BID -TEDS, SCDs CODE STATUS -CPR/cardioversion ok -NO INTUBATION Continued [facility] stay due to: inadequate po fluid intake, ambulation difficulties Discharge planning: home with home health
[2016-05-25] MEDS: MIRTAZAPINE TAB 15 MG TAB PO SCH (20:04)
[2016-05-25] MEDS: SIMVASTATIN 10 MG TAB PO SCH (20:04)
[2016-05-25] MEDS: LEVOFLOXACIN 750 MG TAB PO SCH (20:05)
[2016-05-25 23:29] VITALS: BP 168/96; PULSE 102; TEMP 36.4; O2SAT 97
[2016-05-25 23:56] VITALS: BP 156/83; PULSE 78
[2016-05-26] MEDS: LEVOTHYROXINE 50 MCG TAB PO SCH (05:58)
[2016-05-26 06:44] LABS: COMPLETE YES; EOS % 1.3 %; HEMATOCRIT 35.4 % (42-52); IG% 0.3 %; LYMPH % 11.8 %; LYMPH ABS # 1.37 K/uL (1.2-3.4); MEAN CELL VOLUME 92.2 fL (80-100); MEAN CORPUSCULAR HGB CONC 33.6 g/dl (32-36); MEAN PLATELET VOLUME 8.7 fL (7.4-10.4); MONO % 7.3 %; NEUT % 79.3 %; PLATELET COUNT 435 K/uL (130-400); RED BLOOD COUNT 3.84 M/uL (4.7-6.1); WHITE BLOOD COUNT 11.65 K/uL (4.8-10.8)
[2016-05-26 07:07] VITALS: BP 153/80; PULSE 96; TEMP 36.6; O2SAT 97
[2016-05-26 07:15] LABS: BUN/CREATININE RATIO 32.7 (10-20); CALCIUM 8.8 mg/dl (8.5-10.1); CREATININE 0.75 mg/dl (0.60-1.40); MAGNESIUM 2.1 mg/dl (1.8-2.4); POTASSIUM 4.3 mmol/L (3.5-5.1)
[2016-05-26 07:21] LABS: ALB/GLOB RATIO 0.5 (0.9-2); PHOSPHORUS 1.6 mg/dl (2.5-4.9)
[2016-05-26] MEDS: POLYETHYLENE (MIRALAX) 17 GM PACK PO PRN (07:51)
[2016-05-26] MEDS: BOOST VANILLA PO SCH ×6 (07:51→21:27)
[2016-05-26] MEDS: IPRATROPIUM BROMIDE/ALBUTEROL respimat INH INH SCH ×4 (07:52→21:18)
[2016-05-26] MEDS: ASPIRIN 81 MG ECTAB PO SCH (07:52)
[2016-05-26] MEDS: DOCUSATE SODIUM 100 MG CAP PO SCH ×2 (07:52→21:19)
[2016-05-26] MEDS: ARTIFICIAL TEARS OP SOLN OP SCH ×8 (07:53→21:18)
[2016-05-26] MEDS: HEPARIN SOD 5000 UNIT/0.5 ML CARP SQ SCH ×2 (10:57→21:26)
[2016-05-26 14:46] VITALS: BP 120/78; PULSE 95; TEMP 36.2; O2SAT 95
--- NOTE | 2016-05-26 15:05 | PULMONARY PROGRESS NOTE ---
DATE: 05/26/2016 TIME: 2:35 p.m. SUBJECTIVE: The patient feels about the same. He is still having some cough. He did not expectorate any phlegm. He denies chest pains. He has not noticed any worsening of his shortness of breath but he has not been active. We did obtain a report of the AFB smear from the bronchial washings. They reported few AFB seen. We had taken the patient out of isolation yesterday because his QuantiFERON TB Gold test was negative. 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 However, we have put him back in isolation for the time being until the situation is clarified. OBJECTIVE: GENERAL: The patient looks unchanged from before. VITAL SIGNS: Temperature is 36.6. HEENT: He is noted to have a small area of hemorrhage on the left side of his eye and there is a small bleb of fluid filled tissue noted in the left eye laterally. He is not complaining of eye pain or blurred vision. HEART: Rate is 100 per minute. The rhythm is somewhat irregular. Blood pressure is 153/80. LUNGS: Auscultation of the lung amaya reveals bilateral crackles, as were heard previously. Respiratory rate 18 per minute. Saturation 97% on 2 liters. LABORATORY DATA: The CBC today showed a white count of 11.65. Hemoglobin 11.9. Platelets 435,000. Sodium 136, potassium 4.3, chloride 98, bicarb 33. The BUN is 25 with a creatinine of 0.75. IMPRESSIONS: 1. Interstitial lung disease. 2. 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 3. Weight loss. 4. Pneumomediastinum. COMMENTS AND RECOMMENDATIONS: I have explained the situation to the patient. I have ordered an infectious disease consult for their expertise. We will keep him in isolation for now at least until the ID consult has given an opinion. We obviously will not know the results of cultures for a few weeks. It is possible if he has atypical Mycobacterium, that this could explain some of his cachexia and weight loss and perhaps treatment might improve that. We will continue the present course for now.
--- NOTE | 2016-05-26 16:28 | Progress Note ---
Subjective Date of Service: May 26, 2016. Subjective Pt evaluation today including: conversation w/ patient, physical exam, chart review, lab review, conversation w/ retail sales vitamin consultant (Dr. Morton), review of inpatient medication list Problem List Medical Problems: (1) Change in mental status Status: Acute (2) Pneumonia Status: Acute (3) Weakness Status: Acute Review of Systems Constitutional: No chills, No fatigue, No fever, No problem reported, No see HPI, No sweats, No weakness, No weight loss Eyes: No diplopia, No discharge, No eye pain, No problem reported, No redness, No see HPI, No worsening of vision ENT: No dental problems, No hearing loss, No nasal symptoms, No problem reported, No see HPI, No sore throat, No tinnitus, No trouble swallowing, No unusual epistaxis Respiratory: + cough, + dyspnea at rest, + dyspnea on exertion, + shortness of breath, + sputum, No hemoptysis, No problem reported, No see HPI, No wheezing Cardiac: No PND, No chest pain, No claudication, No edema, No orthopnea, No palpitations, No problem reported, No see HPI Abdomen: No GI bleeding, No constipation, No diarrhea, No nausea, No pain, No problem reported, No see HPI, No vomiting Musculoskeletal: No calf pain, No joint pain, No muscle pain, No problem reported, No see HPI, No swelling Male : No dysuria, No hematuria, No incontinence, No nocturia more than once/ night, No problem reported, No see HPI, No sexual dysfunction, No slowing stream , No urinary frequency Neurologic: No balance problems, No memory loss, No numbness/tingling, No paralysis, No problem reported, No see HPI, No vertigo, No weakness Psychiatric: No anhedonism, No anxiety, No depression symptoms, No insomnia, No problem reported, No see HPI, No substance abuse Heme: No abnormal bleeding/bruising, No clotting problems, No night sweats, No problem reported, No see HPI, No swollen lymph nodes Endo: No excessive thirst, No excessive urination, No fatigue, No problem reported, No see HPI Skin: No bleeding, No color change, No itch, No new/changing skin lesions, No problem reported, No rash, No see HPI Medications Current Inpatient Medications Medications (Trade) Dose Ordered Sig/Zayda Route Start Time Stop Time Status Last Admin Dose Admin Hydralazine HCl (HydrALAZINE INJ) 5 mg Q6H PRN IV. 05/20/16 19:15 06/19/16 19:14 Acetaminophen (Tylenol Tab) 650 mg Q4H PRN PO 05/20/16 19:15 06/19/16 19:14 Al Hydrox/Mg Hydrox/Simethicone (Maalox Max Susp) 15 ml Q4H PRN PO 05/20/16 19:15 06/19/16 19:14 Polyethylene (Miralax Powder Packet) 17 gm DAILY PRN PO 05/20/16 19:15 06/19/16 19:14 05/26/16 07:51 17 GM Ondansetron HCl (Zofran Inj) 4 mg Q6H PRN IV 05/20/16 19:15 06/19/16 19:14 Heparin Sodium (Porcine) (Heparin Sq 5000 Unit/0.5ml) 5,000 unit Q12H SQ 05/20/16 22:00 06/19/16 21:59 05/26/16 10:57 5,000 UNIT Enteral Nutritional Formula (Boost) 1 can TID PO 05/20/16 21:00 06/19/16 20:59 05/26/16 07:51 1 CAN Aspirin (Ecotrin Tab) 81 mg QAM PO 05/21/16 08:00 06/20/16 08:59 05/26/16 07:52 81 MG Docusate Sodium (coLACE CAP) 100 mg BID PO 05/20/16 21:00 06/19/16 20:59 05/26/16 07:52 100 MG Levothyroxine Sodium (Synthroid Tab) 50 mcg DAILYBB PO 05/21/16 06:30 06/20/16 06:59 05/26/16 05:58 50 MCG Mirtazapine (Remeron Tab) 15 mg HS PO 05/20/16 21:00 06/19/16 20:59 05/25/16 20:04 15 MG Simvastatin (Zocor Tab) 10 mg HS PO 05/20/16 21:00 06/19/16 20:59 05/25/16 20:04 10 MG Artificial Tears (Artificial Tears) 1 drops QID OP 05/20/16 21:00 06/19/16 20:59 05/26/16 12:16 1 DROPS Albuterol/ Ipratropium (Combivent Respimat Inh) 1 puffs QID INH 05/22/16 16:00 06/21/16 15:59 05/26/16 12:16 1 PUFFS Albuterol/ Ipratropium (Duoneb) 3 ml Q4H PRN INH 05/22/16 12:45 06/21/16 12:44 Levofloxacin (Levaquin Tab) 750 mg DAILY@2200 PO 05/23/16 22:00 05/26/16 22:01 05/25/16 20:05 750 MG Prednisone (PredniSONE TAB) 30 mg DAILY PO 05/26/16 08:00 06/25/16 07:59 05/26/16 08:04 30 MG Objective Vital Signs Date Time Temp Pulse Resp B/P Pulse Ox O2 Delivery O2 Flow Rate FiO2 05/26/16 15:53 Nasal Cannula 2.0 05/26/16 14:46 36.2 95 18 120/78 95 05/26/16 09:16 Nasal Cannula 2.0 05/26/16 07:07 36.6 96 18 153/80 97 Nasal Cannula 2.0 05/26/16 01:41 Nasal Cannula 2.0 05/25/16 23:56 78 156/83 05/25/16 23:29 36.4 102 20 168/96 97 Nasal Cannula 2.0 05/25/16 21:22 Nasal Cannula 2.0 Physical Exam General Appearance: no apparent distress Eyes: normal inspection, PERRL ENT: normal ENT inspection, hearing grossly normal Neck: supple Respiratory/Chest: chest non-tender, + decreased breath sounds, + accessory muscle use, + crackles, + rales Cardiovascular: regular rate, rhythm, no edema, + systolic murmur Abdomen: normal bowel sounds, non tender, soft, no organomegaly Extremities: normal range of motion, non-tender, normal inspection, no pedal edema, no calf tenderness Neurologic/Psychiatric: front end software engineer II-XII nml as tested, no motor/sensory deficits, alert, normal mood/affect, oriented x 3 Skin: normal color, warm/dry, no rash Laboratory Results Last 24 Hours Test 05/26/16 06:28 White Blood Count 11.65 K/uL Red Blood Count 3.84 M/uL Hemoglobin 11.9 g/dL Hematocrit 35.4 % Mean Corpuscular Volume 92.2 fL Mean Corpuscular Hemoglobin 31.0 pg Mean Corpuscular Hemoglobin Concent 33.6 g/dl Platelet Count 435 K/uL Mean Platelet Volume 8.7 fL Neutrophils (%) (Auto) 79.3 % Lymphocytes (%) (Auto) 11.8 % Monocytes (%) (Auto) 7.3 % Eosinophils (%) (Auto) 1.3 % Basophils (%) (Auto) 0.0 % Neutrophils # (Auto) 9.24 K/uL Lymphocytes # (Auto) 1.37 K/uL Monocytes # (Auto) 0.85 K/uL Eosinophils # (Auto) 0.15 K/uL Basophils # (Auto) 0.00 K/uL RDW Standard Deviation 53.3 fL RDW Coefficient of Variation 15.9 % Immature Granulocyte % (Auto) 0.3 % Immature Granulocyte # (Auto) 0.04 K/uL Sodium Level 136 mmol/L Potassium Level 4.3 mmol/L Chloride Level 98 mmol/L Carbon Dioxide Level 33 mmol/L Anion Gap 5.0 mmol/L Blood Urea Nitrogen 25 mg/dl Creatinine 0.75 mg/dl Est Creatinine Clear Calc Drug Dose 66.0 ml/min Estimated GFR () 102.6 Estimated GFR (Non- 88.5 BUN/Creatinine Ratio 32.7 Random Glucose 85 mg/dl Calcium Level 8.8 mg/dl Phosphorus Level 1.6 mg/dl Magnesium Level 2.1 mg/dl Total Bilirubin 0.3 mg/dl Aspartate Amino Transf (AST/SGOT) 23 U/L Alanine Aminotransferase (ALT/SGPT) 34 U/L Alkaline Phosphatase 96 U/L Total Protein 7.0 gm/dl Albumin 2.2 gm/dl Globulin 4.8 gm/dl Albumin/Globulin Ratio 0.5 Assessment and Plan 75-year-old male with an unfortunate history of progressive interstitial lung disease presents to the emergency department with acute on chronic respiratory failure S/P bronchoscopy 05/24 that went uneventful feeling better today with Os sat of 99% on 2L at rest Acute on chronic respiratory failure with hypoxia, multifactorial; severe interstitial lung disease, cavitary lung lesions versus blebs continue DuoNeb scheduled every 6 hours continue steroids. started tapering dose of prednisone by Dr. Morton continue levofloxacin, will also add lactinex in the setting of negative cultures will DC Vanco/zosyn check urine legionella / pending CT of the chest noted (large bleb versus cavitary lesions) Pulmonary consult appreciated Continuous pulse ox O2 per protocol fungitel is pending QuantiFerone is negative few AFB on bronchial wash , will keep on isolation (could MAC or TB) ID consult Hypertension continue holding Olmesartan at 10 mg twice daily at home. continue Hydralazine 5 mg IV q 6 hr PRN Hypothyroidism Continue Synthroid 50 g daily Restless leg syndrome Continue Remeron 15 mg at night Weight loss possibly due d/t chronic disease Hyperlipidemia Continue simvastatin 10 mg daily DVT prophylaxis -Heparin 5000 units subcutaneous BID -TEDS, SCDs CODE STATUS -CPR/cardioversion ok -NO INTUBATION Continued [facility] stay due to: inadequate po fluid intake, ambulation difficulties Discharge planning: home with home health
[2016-05-26] MEDS: LEVOFLOXACIN 750 MG TAB PO SCH (21:19)
[2016-05-26] MEDS: MIRTAZAPINE TAB 15 MG TAB PO SCH (21:19)
[2016-05-26] MEDS: SIMVASTATIN 10 MG TAB PO SCH (21:21)
[2016-05-27 00:14] VITALS: BP 125/71; PULSE 80; TEMP 36.5; O2SAT 91
[2016-05-27 05:56] LABS: BASO % 0.1 %; BASO ABS # 0.01 K/uL (0-0.2); COMPLETE YES; EOS % 2.8 %; HEMATOCRIT 31.3 % (42-52); IG% 0.4 %; LYMPH % 11.2 %; LYMPH ABS # 1.49 K/uL (1.2-3.4); MEAN CELL VOLUME 89.7 fL (80-100); MEAN CORPUSCULAR HEMOGLOBIN 30.7 pg (25-34); MEAN CORPUSCULAR HGB CONC 34.2 g/dl (32-36); MEAN PLATELET VOLUME 8.7 fL (7.4-10.4); MONO % 5.8 %; NEUT % 79.7 %; PLATELET COUNT 432 K/uL (130-400); RED BLOOD COUNT 3.49 M/uL (4.7-6.1); WHITE BLOOD COUNT 13.35 K/uL (4.8-10.8)
[2016-05-27] MEDS: LEVOTHYROXINE 50 MCG TAB PO SCH (06:01)
[2016-05-27 06:32] LABS: BUN/CREATININE RATIO 32.5 (10-20); CALCIUM 8.4 mg/dl (8.5-10.1); CREATININE 0.83 mg/dl (0.60-1.40); MAGNESIUM 2.2 mg/dl (1.8-2.4); POTASSIUM 4.1 mmol/L (3.5-5.1)
[2016-05-27 06:35] LABS: ALB/GLOB RATIO 0.5 (0.9-2)
[2016-05-27 07:32] VITALS: BP 120/80; PULSE 85; TEMP 36.3; O2SAT 100
[2016-05-27] MEDS: IPRATROPIUM BROMIDE/ALBUTEROL respimat INH INH SCH ×4 (07:52→21:15)
[2016-05-27] MEDS: BOOST VANILLA PO SCH ×6 (07:53→21:19)
[2016-05-27] MEDS: ARTIFICIAL TEARS OP SOLN OP SCH ×8 (07:53→21:14)
[2016-05-27] MEDS: ASPIRIN 81 MG ECTAB PO SCH (07:53)
[2016-05-27] MEDS: DOCUSATE SODIUM 100 MG CAP PO SCH ×2 (07:53→21:16)
[2016-05-27 08:00] VITALS: O2SAT 100
[2016-05-27] MEDS: HEPARIN SOD 5000 UNIT/0.5 ML CARP SQ SCH ×2 (08:39→21:17)
--- NOTE | 2016-05-27 09:27 | Medical Consult ---
Consultation Date of Consultation: May 27, 2016. Attending Physician: Mandi Elias MD Reason for Consultation: AFB in bronchial washings History of Present Illness 75-year-old male with history of severe interstitial lung disease 1st diagnosis in 2014, as well as bronchiectasis, who apparently for the last year or so has been losing weight, up to 60 pounds, associated with fatigue. For the last 2 months he has noted increasing shortness of breath. He was seen by his cardiopulmonary technician and eeg tech May 20 and was found to be significantly hypoxic and was admitted to the hospital for further management. CT scan of the chest, read by me, shows interstitial lung disease with cavitary process. He has not had fever, chills, or night sweats. He is undergone bronchoscopy, and 1 specimen shows few AFB positive organisms. QuantiFERON gold test is negative. He has had no known exposure to TB, has lived in the area all his life. Past Medical/Surgical History Medical Problems: (1) Change in mental status Status: Acute (2) Pneumonia Status: Acute (3) Weakness Status: Acute Medical Problems: (1) Acute and chronic respiratory failure (2) Interstitial lung disease (3) Peripheral neuropathy (4) Pulmonary fibrosis (5) Right lower lobe pneumonia Family History Patient reports no known family medical history. Social History Smoking Status: Former Smoker Drug Use: none Marital Status: Housing Status: lives alone Occupation Status: retired Allergies Coded Allergies: Sulfa Antibiotics (Verified Allergy, Unknown, "SULFA DRUGS", 05/20/16) Current Inpatient Medications Current Inpatient Medications Medications (Trade) Dose Ordered Sig/Zayda Route Start Time Stop Time Status Last Admin Dose Admin Hydralazine HCl (HydrALAZINE INJ) 5 mg Q6H PRN IV. 05/20/16 19:15 06/19/16 19:14 Acetaminophen (Tylenol Tab) 650 mg Q4H PRN PO 05/20/16 19:15 06/19/16 19:14 Al Hydrox/Mg Hydrox/Simethicone (Maalox Max Susp) 15 ml Q4H PRN PO 05/20/16 19:15 06/19/16 19:14 Polyethylene (Miralax Powder Packet) 17 gm DAILY PRN PO 05/20/16 19:15 06/19/16 19:14 05/26/16 07:51 17 GM Ondansetron HCl (Zofran Inj) 4 mg Q6H PRN IV 05/20/16 19:15 06/19/16 19:14 Heparin Sodium (Porcine) (Heparin Sq 5000 Unit/0.5ml) 5,000 unit Q12H SQ 05/20/16 22:00 06/19/16 21:59 05/27/16 08:39 5,000 UNIT Enteral Nutritional Formula (Boost) 1 can TID PO 05/20/16 21:00 06/19/16 20:59 05/27/16 07:53 1 CAN Aspirin (Ecotrin Tab) 81 mg QAM PO 05/21/16 08:00 06/20/16 08:59 05/27/16 07:53 81 MG Docusate Sodium (coLACE CAP) 100 mg BID PO 05/20/16 21:00 06/19/16 20:59 05/27/16 07:53 100 MG Levothyroxine Sodium (Synthroid Tab) 50 mcg DAILYBB PO 05/21/16 06:30 06/20/16 06:59 05/27/16 06:01 50 MCG Mirtazapine (Remeron Tab) 15 mg HS PO 05/20/16 21:00 06/19/16 20:59 05/26/16 21:19 15 MG Simvastatin (Zocor Tab) 10 mg HS PO 05/20/16 21:00 06/19/16 20:59 05/26/16 21:21 10 MG Artificial Tears (Artificial Tears) 1 drops QID OP 05/20/16 21:00 06/19/16 20:59 05/27/16 07:53 1 DROPS Albuterol/ Ipratropium (Combivent Respimat Inh) 1 puffs QID INH 05/22/16 16:00 06/21/16 15:59 05/27/16 07:52 1 PUFFS Albuterol/ Ipratropium (Duoneb) 3 ml Q4H PRN INH 05/22/16 12:45 06/21/16 12:44 Prednisone (PredniSONE TAB) 30 mg DAILY PO 05/26/16 08:00 06/25/16 07:59 05/27/16 07:53 30 MG Review of Systems Constitutional: + fatigue, + weakness, + weight loss, No chills, No fever, No sweats Eyes: No problem reported ENT: No problem reported Respiratory: + cough, + dyspnea on exertion, + shortness of breath Cardiovascular: No problem reported Abdomen: No problem reported Musculoskeletal: No problem reported Genitourinary - Male: No problem reported Neurologic: No problem reported Psychiatric: No problem reported Endocrine: No problem reported Hematologic / Lymphatic: No problem reported Integumentary: No problem reported Allergic / Immunologic: No problem reported Physical Exam Date Time Temp Pulse Resp B/P Pulse Ox O2 Delivery O2 Flow Rate FiO2 05/27/16 07:32 36.3 85 20 120/80 100 Nasal Cannula 2.0 05/27/16 00:14 36.5 80 20 125/71 91 Nasal Cannula 2.0 05/27/16 00:06 Nasal Cannula 2.0 05/26/16 21:09 Nasal Cannula 2.0 05/26/16 15:53 Nasal Cannula 2.0 05/26/16 14:46 36.2 95 18 120/78 95 General Appearance: no apparent distress, + cachetic, + thin Head: normocephalic, atraumatic Eyes: normal inspection, EOMI, sclerae normal ENT: normal ENT inspection, hearing grossly normal, pharynx normal Neck: supple, no adenopathy, thyroid normal, trachea midline Respiratory/Chest: chest non-tender, no respiratory distress, + rales Cardiovascular: regular rate, rhythm, no gallop, + systolic murmur Abdomen/GI: normal bowel sounds, non tender, soft, no organomegaly Back: normal inspection, no CVA tenderness Extremities/Musculoskelatal: no calf tenderness, non-tender Neurologic/Psych: alert, oriented x 3 Skin: normal color, warm/dry, no rash Lymphatic: no adenopathy Laboratory Results RUN DATE: 05/26/16 [facility] LAB PAGE 1 RUN TIME: 1241 Specimen Inquiry PATIENT: BISI YANG LOC: [facility] U # : [id number] AGE/SX: 75/M ROOM: E400 REG : 05/20/[address]: Mandi Elias : 1940 BED: 1 DIS : STATUS: ADM IN TLOC: SPEC #: [id number] CARIE: 05/24/16 STATUS: RES REQ #: [id number] RECD: 05/24/[address]: Jesus Velasquez MD SOURCE: [facility] WASH ENTR: 05/24/[address]: Bart Moses D.O. Pulmonary SPDESC: LT UPP LOB Mandi Elias MD Pro,Molly Philippe Natalie B., MD ORDERED: AFB/TB CULT/SMR COMMENTS: Has Specimen Been Obtained/Collected? Y Procedure Result Verified Site AFB SMEAR Final 05/26/16-1241 RESULTS FEW ACID-FAST BACILLI SEEN RESULTS WERE ALSO CALLED TO [facility] INFECTION CONTROL ANSWERING MACHINE ON 05/26/16 BY MIGDALIA. AFB CULTURE PENDING Last 24 Hours Test 05/27/16 04:50 White Blood Count 13.35 K/uL Red Blood Count 3.49 M/uL Hemoglobin 10.7 g/dL Hematocrit 31.3 % Mean Corpuscular Volume 89.7 fL Mean Corpuscular Hemoglobin 30.7 pg Mean Corpuscular Hemoglobin Concent 34.2 g/dl Platelet Count 432 K/uL Mean Platelet Volume 8.7 fL Neutrophils (%) (Auto) 79.7 % Lymphocytes (%) (Auto) 11.2 % Monocytes (%) (Auto) 5.8 % Eosinophils (%) (Auto) 2.8 % Basophils (%) (Auto) 0.1 % Neutrophils # (Auto) 10.65 K/uL Lymphocytes # (Auto) 1.49 K/uL Monocytes # (Auto) 0.77 K/uL Eosinophils # (Auto) 0.38 K/uL Basophils # (Auto) 0.01 K/uL RDW Standard Deviation 52.0 fL RDW Coefficient of Variation 16.2 % Immature Granulocyte % (Auto) 0.4 % Immature Granulocyte # (Auto) 0.05 K/uL Sodium Level 137 mmol/L Potassium Level 4.1 mmol/L Chloride Level 99 mmol/L Carbon Dioxide Level 31 mmol/L Anion Gap 7.0 mmol/L Blood Urea Nitrogen 27 mg/dl Creatinine 0.83 mg/dl Est Creatinine Clear Calc Drug Dose 59.7 ml/min Estimated GFR () 98.4 Estimated GFR (Non- 84.9 BUN/Creatinine Ratio 32.5 Random Glucose 88 mg/dl Calcium Level 8.4 mg/dl Phosphorus Level 2.0 mg/dl Magnesium Level 2.2 mg/dl Total Bilirubin 0.4 mg/dl Aspartate Amino Transf (AST/SGOT) 21 U/L Alanine Aminotransferase (ALT/SGPT) 27 U/L Alkaline Phosphatase 86 U/L Total Protein 6.4 gm/dl Albumin 2.0 gm/dl Globulin 4.4 gm/dl Albumin/Globulin Ratio 0.5 Patient Name: BISI YANG Unit Number: [id number] Dictated: 05/20/162106 Transcribed: 05/20/162106 MS Printed Date/Time: [~ rep prt dt]/[~ rep prt tm] [~ rep ct labl] - [~ rep ct ivnm] [facility] [place] [address] Dictated: 05/20/162106 Transcribed: 05/20/162106 MS Printed Date/Time: [~ rep prt dt]/[~ rep prt tm] [~ rep ct labl] - [~ rep ct ivnm] CT DOSE: 343.64 mGy.cm HISTORY: Dyspnea acute on chronic respiratory failure ?infectious process TECHNIQUE: Multiaxial CT images of the chest were performed following the intravenous administration of contrast. COMPARISON: 12/21/2015 FINDINGS: Diffuse bilateral parenchymal fibrotic, interstitial, and bronchiectatic change. Continues be a trace amount of pneumomediastinum which is at least moderately improved compared to the prior exam. Mild stable cardiomegaly. Increased prominence of the parenchymal findings in the peripheral lung regions and in particular the left pulmonary apex. Superimposed infiltrative change must be considered. There are no significant pleural effusions. Bleb formation bilaterally is stable to minimally progressive. There has been no evidence for progressive mediastinal or hilar adenopathy. IMPRESSION: 1. Progressive parenchymal fibrotic and bronchiectatic change bilaterally. 2. Probable superimposed infiltrative change in the periphery of the lungs as well as in the left upper lobe region. 3. A small pneumomediastinum is slightly improved from the prior exam Electronically signed by: Jr Foley M.D. 05/20/2016 9:09 PM Dictated Date/Time: 05/20/2016 9:07 PM The status of this report is Signed. Draft = Not yet reviewed or approved by Radiologist. Signed = Reviewed and approved by Radiologist. <AttendingPhy>Valarie Jaime MD</AttendingPhy> <FamilyPhy>Abraham Bermeo M.D.</FamilyPhy> <PrimaryPhy>Abraham Bermeo M.D.</PrimaryPhy> <UnitNumber> [id number]</UnitNumber> <VisitNumber>[id number]</VisitNumber> <PatientName> BISI YANG</PatientName> <DateOfBirth>1940</DateOfBirth> <Location> [facility]</Location> <ServiceDate>05/20/16</ServiceDate> <MNE>ESINDI</MNE> < OrderingPhy>Nayely Sharif PA-C</OrderingPhy> <OrderingPhyMNE>f rep ord dr nolasco< /OrderingPhyMNE> <DictatingPhyMNE>f rep dict dr nolasco</DictatingPhyMNE> <CCListMNE >f rep ct mne</CCListMNE> <AdmittingPhyMNE>f pt admit dr nolasco</AdmittingPhyMNE> < AttendingPhyMNE>f pt attend dr nolasco</AttendingPhyMNE> <ConsultingPhyMNE>f pt consult dr nolasco</ConsultingPhyMNE> <FamilyPhyMNE>f pt fam dr nolasco</FamilyPhyMNE> <OtherPhyMNE>f pt other dr nolasco</OtherPhyMNE> < PrimaryPhyMNE>f pt prim care dr nolasco</PrimaryPhyMNE> <ReferringPhyMNE>f pt referring dr nolasco</ReferringPhyMNE> Assessment & Plan Progressive pulmonary process with cavitation with positive AFB in patient with chronic interstitial pneumonitis and bronchiectasis. Given negative Quantiferon , lack of travel or exposure history, and lack of other systemic symptoms, agree that this is more likely DENAE and not Tb. Would continue on isolation for now. Will discuss further management with Dr. Morton. Will follow.
[2016-05-27 11:34] LABS: LEGIONELLA ANTIGEN NOT DETECTED (NOT DETECTED)
[2016-05-27 14:01] VITALS: BP 131/65
[2016-05-27 15:05] VITALS: BP 112/71; PULSE 82; TEMP 36.3; O2SAT 95
[2016-05-27] MEDS ORDERED: NYSTATIN SUSP 500,000 U/5 ML UDC PO STA (16:18)
--- NOTE | 2016-05-27 16:23 | Progress Note ---
Subjective Date of Service: May 27, 2016. Subjective Pt evaluation today including: conversation w/ patient, physical exam, lab review, review of studies, conversation w/ remediation consultant Pain: no pain PO Intake: improving Voiding: no voiding problems feels very weak and tired, no dyspnea or cough discussed ID consultation, keeping on isolation, still deciding on treatment c/o oral lesions and pain, white plaques Problem List Medical Problems: (1) Change in mental status Status: Acute (2) Pneumonia Status: Acute (3) Weakness Status: Acute Review of Systems ENT: + problem reported (mouth sores, painful) Respiratory: + dyspnea on exertion Neurologic: + balance problems, + weakness All Other Systems: Reviewed and Negative Medications Current Inpatient Medications Medications (Trade) Dose Ordered Sig/Zayda Route Start Time Stop Time Status Last Admin Dose Admin Hydralazine HCl (HydrALAZINE INJ) 5 mg Q6H PRN IV. 05/20/16 19:15 06/19/16 19:14 Acetaminophen (Tylenol Tab) 650 mg Q4H PRN PO 05/20/16 19:15 06/19/16 19:14 Al Hydrox/Mg Hydrox/Simethicone (Maalox Max Susp) 15 ml Q4H PRN PO 05/20/16 19:15 06/19/16 19:14 Polyethylene (Miralax Powder Packet) 17 gm DAILY PRN PO 05/20/16 19:15 06/19/16 19:14 05/26/16 07:51 17 GM Ondansetron HCl (Zofran Inj) 4 mg Q6H PRN IV 05/20/16 19:15 06/19/16 19:14 Heparin Sodium (Porcine) (Heparin Sq 5000 Unit/0.5ml) 5,000 unit Q12H SQ 05/20/16 22:00 06/19/16 21:59 05/27/16 08:39 5,000 UNIT Enteral Nutritional Formula (Boost) 1 can TID PO 05/20/16 21:00 06/19/16 20:59 05/27/16 13:05 1 CAN Aspirin (Ecotrin Tab) 81 mg QAM PO 05/21/16 08:00 06/20/16 08:59 05/27/16 07:53 81 MG Docusate Sodium (coLACE CAP) 100 mg BID PO 05/20/16 21:00 06/19/16 20:59 05/27/16 07:53 100 MG Levothyroxine Sodium (Synthroid Tab) 50 mcg DAILYBB PO 05/21/16 06:30 06/20/16 06:59 05/27/16 06:01 50 MCG Mirtazapine (Remeron Tab) 15 mg HS PO 05/20/16 21:00 06/19/16 20:59 05/26/16 21:19 15 MG Simvastatin (Zocor Tab) 10 mg HS PO 05/20/16 21:00 06/19/16 20:59 05/26/16 21:21 10 MG Artificial Tears (Artificial Tears) 1 drops QID OP 05/20/16 21:00 06/19/16 20:59 05/27/16 13:06 1 DROPS Albuterol/ Ipratropium (Combivent Respimat Inh) 1 puffs QID INH 05/22/16 16:00 06/21/16 15:59 05/27/16 13:06 1 PUFFS Albuterol/ Ipratropium (Duoneb) 3 ml Q4H PRN INH 05/22/16 12:45 06/21/16 12:44 Prednisone (PredniSONE TAB) 30 mg DAILY PO 05/26/16 08:00 06/25/16 07:59 05/27/16 07:53 30 MG Objective Vital Signs Date Time Temp Pulse Resp B/P Pulse Ox O2 Delivery O2 Flow Rate FiO2 05/27/16 15:05 36.3 82 20 112/71 95 Nasal Cannula 05/27/16 08:00 100 Nasal Cannula 2.0 05/27/16 07:32 36.3 85 20 120/80 100 Nasal Cannula 2.0 05/27/16 00:14 36.5 80 20 125/71 91 Nasal Cannula 2.0 05/27/16 00:06 Nasal Cannula 2.0 05/26/16 21:09 Nasal Cannula 2.0 Physical Exam General Appearance: no apparent distress, + cachetic Eyes: normal inspection, EOMI, sclerae normal ENT: hearing grossly normal, pharynx normal, + pertinent finding (white sores consistent with thrush) Neck: supple, no adenopathy, no JVD, trachea midline Respiratory/Chest: chest non-tender, lungs clear, normal breath sounds, no respiratory distress, no accessory muscle use Cardiovascular: regular rate, rhythm, no edema, no gallop, no JVD, no murmur Abdomen: normal bowel sounds, non tender, soft, no organomegaly Extremities: normal range of motion, non-tender, normal inspection, no pedal edema, no calf tenderness 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, alert, normal mood/affect, oriented x 3, + motor weakness (generalized, needs two max assist to walk to bathroom) Skin: normal color, warm/dry, no rash Laboratory Results Last 24 Hours Test 05/27/16 04:50 White Blood Count 13.35 K/uL Red Blood Count 3.49 M/uL Hemoglobin 10.7 g/dL Hematocrit 31.3 % Mean Corpuscular Volume 89.7 fL Mean Corpuscular Hemoglobin 30.7 pg Mean Corpuscular Hemoglobin Concent 34.2 g/dl Platelet Count 432 K/uL Mean Platelet Volume 8.7 fL Neutrophils (%) (Auto) 79.7 % Lymphocytes (%) (Auto) 11.2 % Monocytes (%) (Auto) 5.8 % Eosinophils (%) (Auto) 2.8 % Basophils (%) (Auto) 0.1 % Neutrophils # (Auto) 10.65 K/uL Lymphocytes # (Auto) 1.49 K/uL Monocytes # (Auto) 0.77 K/uL Eosinophils # (Auto) 0.38 K/uL Basophils # (Auto) 0.01 K/uL RDW Standard Deviation 52.0 fL RDW Coefficient of Variation 16.2 % Immature Granulocyte % (Auto) 0.4 % Immature Granulocyte # (Auto) 0.05 K/uL Sodium Level 137 mmol/L Potassium Level 4.1 mmol/L Chloride Level 99 mmol/L Carbon Dioxide Level 31 mmol/L Anion Gap 7.0 mmol/L Blood Urea Nitrogen 27 mg/dl Creatinine 0.83 mg/dl Est Creatinine Clear Calc Drug Dose 59.7 ml/min Estimated GFR () 98.4 Estimated GFR (Non- 84.9 BUN/Creatinine Ratio 32.5 Random Glucose 88 mg/dl Calcium Level 8.4 mg/dl Phosphorus Level 2.0 mg/dl Magnesium Level 2.2 mg/dl Total Bilirubin 0.4 mg/dl Aspartate Amino Transf (AST/SGOT) 21 U/L Alanine Aminotransferase (ALT/SGPT) 27 U/L Alkaline Phosphatase 86 U/L Total Protein 6.4 gm/dl Albumin 2.0 gm/dl Globulin 4.4 gm/dl Albumin/Globulin Ratio 0.5 Assessment and Plan 75-year-old male with an unfortunate history of progressive interstitial lung disease presents to the emergency department with acute on chronic respiratory failure S/P bronchoscopy 05/24 that was uneventful Acute on chronic respiratory failure with hypoxia, multifactorial; severe interstitial lung disease, cavitary lung lesions versus blebs, 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 started tapering dose of prednisone by Dr. Morton continue levofloxacin few AFB seen on sputum samples, Quantiferon gold negative, no travel or exposure history appreciate ID consult, could be MAC, keep in isolation will determine treatment in next 1-2 days Oral thrush: start Nystatin S/S QID Hypertension continue holding Olmesartan at 10 mg twice daily at home. continue Hydralazine 5 mg IV q 6 hr PRN Hypothyroidism Continue Synthroid 50 g daily Restless leg syndrome Continue Remeron 15 mg at night Weight loss possibly due d/t chronic disease Hyperlipidemia Continue simvastatin 10 mg daily DVT prophylaxis -Heparin 5000 units subcutaneous BID -TEDS, SCDs CODE STATUS -CPR/cardioversion ok -NO INTUBATION Continued [facility] stay due to: inadequate po fluid intake, ambulation difficulties Discharge planning: home with home health
[2016-05-27] MEDS: NYSTATIN SUSP 500,000 U/5 ML UDC PO SCH ×2 (16:44→21:17)
[2016-05-27] MEDS: MIRTAZAPINE TAB 15 MG TAB PO SCH (21:15)
[2016-05-27] MEDS: SIMVASTATIN 10 MG TAB PO SCH (21:16)
[2016-05-28 00:05] VITALS: BP 153/86; PULSE 82; TEMP 36.4; O2SAT 96
[2016-05-28 06:22] LABS: BUN/CREATININE RATIO 32.4 (10-20); CALCIUM 8.4 mg/dl (8.5-10.1); CREATININE 0.66 mg/dl (0.60-1.40)
[2016-05-28] MEDS: LEVOTHYROXINE 50 MCG TAB PO SCH (06:40)
[2016-05-28 08:26] VITALS: BP 135/80; PULSE 71; TEMP 36.4; O2SAT 97
[2016-05-28] MEDS: DOCUSATE SODIUM 100 MG CAP PO SCH ×2 (09:04→19:52)
[2016-05-28] MEDS: ASPIRIN 81 MG ECTAB PO SCH (09:04)
[2016-05-28] MEDS: BOOST VANILLA PO SCH ×6 (09:05→19:51)
[2016-05-28] MEDS: ARTIFICIAL TEARS OP SOLN OP SCH ×8 (09:05→19:52)
[2016-05-28] MEDS: NYSTATIN SUSP 500,000 U/5 ML UDC PO SCH ×4 (09:05→19:55)
[2016-05-28] MEDS: IPRATROPIUM BROMIDE/ALBUTEROL respimat INH INH SCH ×4 (09:05→19:52)
[2016-05-28] MEDS: HEPARIN SOD 5000 UNIT/0.5 ML CARP SQ SCH ×2 (09:25→21:04)
[2016-05-28 12:23] LABS: HERPES SIMPLEX CULT SOURCE OTHER-BAL LUL; HERPES SIMPLEX VIRUS CULT NOT ISOLATED (NOT ISOLATED)
--- NOTE | 2016-05-28 13:30 | Progress Note ---
Subjective Date of Service: May 28, 2016. Subjective Pt evaluation today including: conversation w/ patient, physical exam, lab review, conversation w/ websphere commerce consultant, review of inpatient medication list Pain: denies pain PO Intake: adequate Voiding: rivers catheter in place eating okay, still has sores in mouth, no improvement on Nystatin suspension still feels weak, going to d/c rivers for voiding trial asked ID to determine treatment plan, still awaiting cultures Problem List Medical Problems: (1) Change in mental status Status: Acute (2) Pneumonia Status: Acute (3) Weakness Status: Acute Review of Systems Constitutional: + fatigue, + weakness ENT: + problem reported (mouth sores) Respiratory: + dyspnea on exertion Neurologic: + balance problems, + weakness All Other Systems: Reviewed and Negative Medications Current Inpatient Medications Medications (Trade) Dose Ordered Sig/Zayda Route Start Time Stop Time Status Last Admin Dose Admin Hydralazine HCl (HydrALAZINE INJ) 5 mg Q6H PRN IV. 05/20/16 19:15 06/19/16 19:14 Acetaminophen (Tylenol Tab) 650 mg Q4H PRN PO 05/20/16 19:15 06/19/16 19:14 Al Hydrox/Mg Hydrox/Simethicone (Maalox Max Susp) 15 ml Q4H PRN PO 05/20/16 19:15 06/19/16 19:14 Polyethylene (Miralax Powder Packet) 17 gm DAILY PRN PO 05/20/16 19:15 06/19/16 19:14 05/26/16 07:51 17 GM Ondansetron HCl (Zofran Inj) 4 mg Q6H PRN IV 05/20/16 19:15 06/19/16 19:14 Heparin Sodium (Porcine) (Heparin Sq 5000 Unit/0.5ml) 5,000 unit Q12H SQ 05/20/16 22:00 06/19/16 21:59 05/28/16 09:25 5,000 UNIT Enteral Nutritional Formula (Boost) 1 can TID PO 05/20/16 21:00 06/19/16 20:59 05/27/16 21:19 1 CAN Aspirin (Ecotrin Tab) 81 mg QAM PO 05/21/16 08:00 06/20/16 08:59 05/28/16 09:04 81 MG Docusate Sodium (coLACE CAP) 100 mg BID PO 05/20/16 21:00 06/19/16 20:59 05/28/16 09:04 100 MG Levothyroxine Sodium (Synthroid Tab) 50 mcg DAILYBB PO 05/21/16 06:30 06/20/16 06:59 05/28/16 06:40 50 MCG Mirtazapine (Remeron Tab) 15 mg HS PO 05/20/16 21:00 06/19/16 20:59 05/27/16 21:15 15 MG Simvastatin (Zocor Tab) 10 mg HS PO 05/20/16 21:00 06/19/16 20:59 05/27/16 21:16 10 MG Artificial Tears (Artificial Tears) 1 drops QID OP 05/20/16 21:00 06/19/16 20:59 05/28/16 12:27 1 DROPS Albuterol/ Ipratropium (Combivent Respimat Inh) 1 puffs QID INH 05/22/16 16:00 06/21/16 15:59 05/28/16 12:26 1 PUFFS Albuterol/ Ipratropium (Duoneb) 3 ml Q4H PRN INH 05/22/16 12:45 06/21/16 12:44 Prednisone (PredniSONE TAB) 30 mg DAILY PO 05/26/16 08:00 06/25/16 07:59 05/28/16 09:05 30 MG Nystatin (Mycostatin Susp) 5 ml QID PO 05/27/16 17:00 06/06/16 16:59 05/28/16 12:26 5 ML Objective Vital Signs Date Time Temp Pulse Resp B/P Pulse Ox O2 Delivery O2 Flow Rate FiO2 05/28/16 10:59 Nasal Cannula 2.0 05/28/16 08:26 36.4 71 18 135/80 97 Nasal Cannula 2.0 05/28/16 06:15 Mask 05/28/16 00:05 36.4 82 18 153/86 96 Nasal Cannula 2.0 05/28/16 00:00 Nasal Cannula 2.0 05/27/16 16:00 Nasal Cannula 2.0 05/27/16 15:05 36.3 82 20 112/71 95 Nasal Cannula Physical Exam General Appearance: no apparent distress, + cachetic Eyes: normal inspection, EOMI, sclerae normal ENT: hearing grossly normal, + pertinent finding (white plague on tongue, thrush) Neck: supple, no adenopathy, no JVD, trachea midline Respiratory/Chest: chest non-tender, lungs clear, normal breath sounds, no respiratory distress, no accessory muscle use Cardiovascular: regular rate, rhythm, no edema, no gallop, no JVD, no murmur Abdomen: normal bowel sounds, non tender, soft, no organomegaly Extremities: normal range of motion, non-tender, normal inspection, no pedal edema, no calf tenderness, pelvis stable 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, no motor/sensory deficits, alert, normal mood/affect, oriented x 3 Skin: normal color, warm/dry, no rash Lymphatic: no adenopathy Laboratory Results Last 24 Hours Test 05/28/16 05:15 Sodium Level 135 mmol/L Potassium Level 4.0 mmol/L Chloride Level 98 mmol/L Carbon Dioxide Level 29 mmol/L Anion Gap 8.0 mmol/L Blood Urea Nitrogen 21 mg/dl Creatinine 0.66 mg/dl Est Creatinine Clear Calc Drug Dose 75.0 ml/min Estimated GFR () 108.1 Estimated GFR (Non- 93.3 BUN/Creatinine Ratio 32.4 Random Glucose 89 mg/dl Calcium Level 8.4 mg/dl Assessment and Plan 75-year-old male with an unfortunate history of progressive interstitial lung disease presents to the emergency department with acute on chronic respiratory failure S/P bronchoscopy 05/24 that was uneventful Acute on chronic respiratory failure with hypoxia, multifactorial; severe interstitial lung disease, cavitary lung lesions versus blebs, 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 started tapering dose of prednisone by Dr. Morton stop Levaquin few AFB seen on sputum samples, Quantiferon gold negative, no travel or exposure history appreciate ID consult, could be MAC, keep in isolation still awaiting determination of treatment strategy Oral thrush: start Nystatin S/S QID, did not help add Diflucan 100mg IV daily Hypertension can resume Olmesartan at 10 mg twice daily continue Hydralazine 5 mg IV q 6 hr PRN Hypothyroidism Continue Synthroid 50 g daily Restless leg syndrome Continue Remeron 15 mg at night Weight loss possibly due d/t chronic disease Hyperlipidemia Continue simvastatin 10 mg daily DVT prophylaxis -Heparin 5000 units subcutaneous BID -TEDS, SCDs CODE STATUS -CPR/cardioversion ok -NO INTUBATION Continued [facility] stay due to: inadequate po fluid intake, ambulation difficulties Discharge planning: home with home health
--- NOTE | 2016-05-28 14:34 | Infectious Disease Progress Nt ---
Progress Note Date of Service May 28, 2016. Subjective Pt evaluation today including: conversation w/ patient, physical exam, chart review, lab review, review of studies, conversation w/ science consultant, review of inpatient medication list Patient complaining of mouth sores, now on nystatin for possible candidiasis. AFB now growing, specimen sent for DNA probe. Hopefully will have information regarding TB soon. No other new complaints. Awaiting voiding trial. All Other Systems: Reviewed and Negative Medications Current Inpatient Medications Medications (Trade) Dose Ordered Sig/Zayda Route Start Time Stop Time Status Last Admin Dose Admin Hydralazine HCl (HydrALAZINE INJ) 5 mg Q6H PRN IV. 05/20/16 19:15 06/19/16 19:14 Acetaminophen (Tylenol Tab) 650 mg Q4H PRN PO 05/20/16 19:15 06/19/16 19:14 Al Hydrox/Mg Hydrox/Simethicone (Maalox Max Susp) 15 ml Q4H PRN PO 05/20/16 19:15 06/19/16 19:14 Polyethylene (Miralax Powder Packet) 17 gm DAILY PRN PO 05/20/16 19:15 06/19/16 19:14 05/26/16 07:51 17 GM Ondansetron HCl (Zofran Inj) 4 mg Q6H PRN IV 05/20/16 19:15 06/19/16 19:14 Heparin Sodium (Porcine) (Heparin Sq 5000 Unit/0.5ml) 5,000 unit Q12H SQ 05/20/16 22:00 06/19/16 21:59 05/28/16 09:25 5,000 UNIT Enteral Nutritional Formula (Boost) 1 can TID PO 05/20/16 21:00 06/19/16 20:59 05/27/16 21:19 1 CAN Aspirin (Ecotrin Tab) 81 mg QAM PO 05/21/16 08:00 06/20/16 08:59 05/28/16 09:04 81 MG Docusate Sodium (coLACE CAP) 100 mg BID PO 05/20/16 21:00 06/19/16 20:59 05/28/16 09:04 100 MG Levothyroxine Sodium (Synthroid Tab) 50 mcg DAILYBB PO 05/21/16 06:30 06/20/16 06:59 05/28/16 06:40 50 MCG Mirtazapine (Remeron Tab) 15 mg HS PO 05/20/16 21:00 06/19/16 20:59 05/27/16 21:15 15 MG Simvastatin (Zocor Tab) 10 mg HS PO 05/20/16 21:00 06/19/16 20:59 05/27/16 21:16 10 MG Artificial Tears (Artificial Tears) 1 drops QID OP 05/20/16 21:00 06/19/16 20:59 05/28/16 12:27 1 DROPS Albuterol/ Ipratropium (Combivent Respimat Inh) 1 puffs QID INH 05/22/16 16:00 06/21/16 15:59 05/28/16 12:26 1 PUFFS Albuterol/ Ipratropium (Duoneb) 3 ml Q4H PRN INH 05/22/16 12:45 06/21/16 12:44 Prednisone (PredniSONE TAB) 30 mg DAILY PO 05/26/16 08:00 06/25/16 07:59 05/28/16 09:05 30 MG Nystatin 5 ml 5 ml QID PO 05/27/16 17:00 06/06/16 16:59 05/28/16 12:26 5 ML Fluconazole/ Sodium Chloride/ Prmx (Diflucan IV/ Premixed Nss) 50 ml @ 100 mls/hr DAILY@1400 IV 05/28/16 14:00 06/07/16 13:59 Olmesartan (Benicar Tab) 10 mg BID PO 05/28/16 20:00 06/27/16 19:59 Objective Vital Signs Date Time Temp Pulse Resp B/P Pulse Ox O2 Delivery O2 Flow Rate FiO2 05/28/16 10:59 Nasal Cannula 2.0 05/28/16 08:26 36.4 71 18 135/80 97 Nasal Cannula 2.0 05/28/16 06:15 Mask 05/28/16 00:05 36.4 82 18 153/86 96 Nasal Cannula 2.0 05/28/16 00:00 Nasal Cannula 2.0 05/27/16 16:00 Nasal Cannula 2.0 05/27/16 15:05 36.3 82 20 112/71 95 Nasal Cannula Physical Exam General Appearance: WD/WN, no apparent distress Eyes: normal inspection, PERRL, sclerae normal ENT: hearing grossly normal (Hand), + pertinent finding (Thrush) Neck: supple, no adenopathy, trachea midline Respiratory/Chest: chest non-tender, no respiratory distress, no accessory muscle use, + rales Cardiovascular: regular rate, rhythm, no gallop, no murmur Abdomen: normal bowel sounds, non tender, soft, no organomegaly Extremities: non-tender, no calf tenderness Neurologic/Psychiatric: alert, oriented x 3 Skin: normal color, no rash Lymphatic: no adenopathy Laboratory Results RUN DATE: 05/28/16 [facility] LAB PAGE 1 RUN TIME: 1303 Specimen Inquiry PATIENT: BISI YANG LOC: [place] # : [id number] AGE/SX: 75/M ROOM: E4 REG : 05/20/[address]: Florentino Lee D.O. : 1940 BED: 1 DIS : STATUS: ADM IN TLOC: SPEC #: [id number] CARIE: 05/21/16-1099 STATUS: RES REQ #: [id number] RECD: 05/21/16-[address]: Segundo Morton DO SOURCE: SPUTUM ENTR: 05/21/16-1115 [facility] DR: Bart Moses D.O. Pulmonary SPDESC: EXP.SPUTUM Pro,Molly Philippe Natalie B., MD ORDERED: AFB/TB CULT/SMR COMMENTS: Has Specimen Been Obtained/Collected? Y Procedure Result Verified Site AFB SMEAR Final 05/22/16-1150 RESULTS NO ACID-FAST BACILLI SEEN AFB CULTURE Preliminary 05/28/16-1303 Organism 1 ACID-FAST BACILLI PRESENT QUANITY UNABLE TO QUANTITATE SENS SENSITIVITIES DEPENDENT ON FURTHER IDENTIFICATION REF. LAB SENT TO REFERENCE LAB FOR DNA PROBE RESULTS WERE ALSO CALLED TO [facility] INFECTION CONTROL ANSWERING MACHINE ON 05/28/16 BY AUREA. Last 24 Hours Test 05/28/16 05:15 Sodium Level 135 mmol/L Potassium Level 4.0 mmol/L Chloride Level 98 mmol/L Carbon Dioxide Level 29 mmol/L Anion Gap 8.0 mmol/L Blood Urea Nitrogen 21 mg/dl Creatinine 0.66 mg/dl Est Creatinine Clear Calc Drug Dose 75.0 ml/min Estimated GFR () 108.1 Estimated GFR (Non- 93.3 BUN/Creatinine Ratio 32.4 Random Glucose 89 mg/dl Calcium Level 8.4 mg/dl Assessment and Plan Progressive pulmonary process with cavitation with positive AFB in patient with chronic interstitial pneumonitis and bronchiectasis. Given negative Quantiferon , lack of travel or exposure history, and lack of other systemic symptoms, agree that this is more likely DENAE and not Tb. Would continue on isolation for now. Hopefully with DNA probe we will have answer soon whether this is TB or not.
[2016-05-28 14:46] VITALS: BP 141/55
[2016-05-28] MEDS: FLUCONAZOLE / NSS 100 MG in PREMIXED NSS 50 ML IV SCH (14:51)
[2016-05-28 16:24] VITALS: BP 126/80; PULSE 108; TEMP 36.7; O2SAT 97
[2016-05-28] MEDS: OLMESARTAN MEDOXOMIL 20 MG TAB PO SCH (19:53)
[2016-05-28] MEDS: MIRTAZAPINE TAB 15 MG TAB PO SCH (21:03)
[2016-05-28] MEDS: SIMVASTATIN 10 MG TAB PO SCH (21:03)
[2016-05-29 00:19] VITALS: BP 99/62; PULSE 83; TEMP 36.4; O2SAT 95
[2016-05-29 05:32] LABS: HEMATOCRIT 33.2 % (42-52); MEAN CORPUSCULAR HEMOGLOBIN 31.2 pg (25-34); MEAN CORPUSCULAR HGB CONC 34.6 g/dl (32-36); MEAN PLATELET VOLUME 8.6 fL (7.4-10.4); PLATELET COUNT 415 K/uL (130-400); RED BLOOD COUNT 3.69 M/uL (4.7-6.1); WHITE BLOOD COUNT 12.58 K/uL (4.8-10.8)
[2016-05-29 06:08] LABS: BUN/CREATININE RATIO 29.8 (10-20); CALCIUM 8.5 mg/dl (8.5-10.1); CREATININE 0.75 mg/dl (0.60-1.40)
[2016-05-29] MEDS: LEVOTHYROXINE 50 MCG TAB PO SCH (06:32)
[2016-05-29] MEDS: IPRATROPIUM BROMIDE/ALBUTEROL respimat INH INH SCH ×4 (07:25→20:57)
[2016-05-29] MEDS: ARTIFICIAL TEARS OP SOLN OP SCH ×8 (07:26→18:21)
[2016-05-29] MEDS: OLMESARTAN MEDOXOMIL 20 MG TAB PO SCH ×2 (07:26→20:58)
[2016-05-29] MEDS: DOCUSATE SODIUM 100 MG CAP PO SCH ×2 (07:27→20:58)
[2016-05-29] MEDS: NYSTATIN SUSP 500,000 U/5 ML UDC PO SCH ×4 (07:27→20:59)
[2016-05-29] MEDS: ASPIRIN 81 MG ECTAB PO SCH (07:27)
[2016-05-29 08:03] VITALS: BP 136/76; PULSE 75; TEMP 36.4; O2SAT 95
[2016-05-29] MEDS: BOOST VANILLA PO SCH ×6 (10:17→20:57)
[2016-05-29] MEDS: HEPARIN SOD 5000 UNIT/0.5 ML CARP SQ SCH ×2 (10:35→21:03)
[2016-05-29 14:23] VITALS: BP 123/78; PULSE 90; O2SAT 92
--- NOTE | 2016-05-29 14:53 | Progress Note ---
Subjective Date of Service: May 29, 2016. Subjective Pt evaluation today including: conversation w/ patient, physical exam, lab review, conversation w/ school plant consultant, review of inpatient medication list Pain: no pain PO Intake: adequate Voiding: rivers catheter in place patient says his oral thrush is a lot better with Diflucan still awaiting final report on whether or not he has TB, explained this to patient he is frustrated says he is eating still feels weak but just contact guard with therapy Problem List Medical Problems: (1) Change in mental status Status: Acute (2) Pneumonia Status: Acute (3) Weakness Status: Acute Review of Systems Constitutional: + fatigue, + weakness ENT: + problem reported (oral thrush) Respiratory: + dyspnea on exertion, + shortness of breath All Other Systems: Reviewed and Negative Medications Current Inpatient Medications Medications (Trade) Dose Ordered Sig/Zayda Route Start Time Stop Time Status Last Admin Dose Admin Hydralazine HCl (HydrALAZINE INJ) 5 mg Q6H PRN IV. 05/20/16 19:15 06/19/16 19:14 Acetaminophen (Tylenol Tab) 650 mg Q4H PRN PO 05/20/16 19:15 06/19/16 19:14 Al Hydrox/Mg Hydrox/Simethicone (Maalox Max Susp) 15 ml Q4H PRN PO 05/20/16 19:15 06/19/16 19:14 Polyethylene (Miralax Powder Packet) 17 gm DAILY PRN PO 05/20/16 19:15 06/19/16 19:14 05/26/16 07:51 17 GM Ondansetron HCl (Zofran Inj) 4 mg Q6H PRN IV 05/20/16 19:15 06/19/16 19:14 Heparin Sodium (Porcine) (Heparin Sq 5000 Unit/0.5ml) 5,000 unit Q12H SQ 05/20/16 22:00 06/19/16 21:59 05/28/16 21:04 5,000 UNIT Enteral Nutritional Formula (Boost) 1 can TID PO 05/20/16 21:00 06/19/16 20:59 05/28/16 19:51 1 CAN Aspirin (Ecotrin Tab) 81 mg QAM PO 05/21/16 08:00 06/20/16 08:59 05/29/16 07:27 81 MG Docusate Sodium (coLACE CAP) 100 mg BID PO 05/20/16 21:00 06/19/16 20:59 05/29/16 07:27 100 MG Levothyroxine Sodium (Synthroid Tab) 50 mcg DAILYBB PO 05/21/16 06:30 06/20/16 06:59 05/29/16 06:32 50 MCG Mirtazapine (Remeron Tab) 15 mg HS PO 05/20/16 21:00 06/19/16 20:59 05/28/16 21:03 15 MG Simvastatin (Zocor Tab) 10 mg HS PO 05/20/16 21:00 06/19/16 20:59 05/28/16 21:03 10 MG Artificial Tears (Artificial Tears) 1 drops QID OP 05/20/16 21:00 06/19/16 20:59 05/29/16 12:19 1 DROPS Albuterol/ Ipratropium (Combivent Respimat Inh) 1 puffs QID INH 05/22/16 16:00 06/21/16 15:59 05/29/16 12:20 1 PUFFS Albuterol/ Ipratropium (Duoneb) 3 ml Q4H PRN INH 05/22/16 12:45 06/21/16 12:44 Prednisone (PredniSONE TAB) 30 mg DAILY PO 05/26/16 08:00 06/25/16 07:59 05/29/16 07:26 30 MG Nystatin 5 ml 5 ml QID PO 05/27/16 17:00 06/06/16 16:59 05/29/16 12:20 5 ML Fluconazole/ Sodium Chloride/ Prmx (Diflucan IV/ Premixed Nss) 50 ml @ 100 mls/hr DAILY@1400 IV 05/28/16 14:00 06/07/16 13:59 05/28/16 14:51 100 MLS/HR Olmesartan (Benicar Tab) 10 mg BID PO 05/28/16 20:00 06/27/16 19:59 05/29/16 07:26 10 MG Objective Vital Signs Date Time Temp Pulse Resp B/P Pulse Ox O2 Delivery O2 Flow Rate FiO2 05/29/16 09:00 Nasal Cannula 2.0 05/29/16 08:03 36.4 75 16 136/76 95 Room Air 05/29/16 00:30 Room Air 05/29/16 00:19 36.4 83 18 99/62 95 Nasal Cannula 2.0 05/29/16 00:00 Nasal Cannula 2.0 05/28/16 16:24 36.7 108 18 126/80 97 Nasal Cannula 2.0 05/28/16 16:15 Nasal Cannula 2.0 Physical Exam General Appearance: no apparent distress, + cachetic Eyes: normal inspection, EOMI, sclerae normal ENT: hearing grossly normal, + pertinent finding (white plaques on tongue, improved) Neck: supple, no adenopathy, no JVD, trachea midline Respiratory/Chest: chest non-tender, no respiratory distress, no accessory muscle use, + decreased breath sounds Cardiovascular: regular rate, rhythm, no edema, no gallop, no JVD, no murmur Abdomen: normal bowel sounds, non tender, soft, no organomegaly Extremities: normal range of motion, non-tender, normal inspection, no pedal edema, no calf tenderness, normal capillary refill, pelvis stable 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, alert, normal mood/affect, oriented x 3, + motor weakness (generalized) Skin: normal color, warm/dry, no rash Laboratory Results Last 24 Hours Test 05/29/16 05:17 White Blood Count 12.58 K/uL Red Blood Count 3.69 M/uL Hemoglobin 11.5 g/dL Hematocrit 33.2 % Mean Corpuscular Volume 90.0 fL Mean Corpuscular Hemoglobin 31.2 pg Mean Corpuscular Hemoglobin Concent 34.6 g/dl RDW Standard Deviation 53.4 fL RDW Coefficient of Variation 16.5 % Platelet Count 415 K/uL Mean Platelet Volume 8.6 fL Sodium Level 138 mmol/L Potassium Level 4.0 mmol/L Chloride Level 100 mmol/L Carbon Dioxide Level 32 mmol/L Anion Gap 6.0 mmol/L Blood Urea Nitrogen 22 mg/dl Creatinine 0.75 mg/dl Est Creatinine Clear Calc Drug Dose 66.0 ml/min Estimated GFR () 102.6 Estimated GFR (Non- 88.5 BUN/Creatinine Ratio 29.8 Random Glucose 85 mg/dl Calcium Level 8.5 mg/dl Assessment and Plan 75-year-old male with an unfortunate history of progressive interstitial lung disease presents to the emergency department with acute on chronic respiratory failure S/P bronchoscopy 05/24 that was uneventful Acute on chronic respiratory failure with hypoxia, multifactorial; severe interstitial lung disease, cavitary lung lesions versus blebs, 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 started tapering dose of prednisone by Dr. Morton stop Levaquin few AFB seen on sputum samples, Quantiferon gold negative, no travel or exposure history appreciate ID consult, could be MAC, keep in isolation still awaiting determination of treatment strategy, awaiting DNA probe Oral thrush: continue Nystatin S/S QID, did not help continue Diflucan 100mg IV, will change to PO prior to discharge Hypertension can resume Olmesartan at 10 mg twice daily continue Hydralazine 5 mg IV q 6 hr PRN Hypothyroidism Continue Synthroid 50 g daily Restless leg syndrome Continue Remeron 15 mg at night Weight loss possibly due d/t chronic disease Hyperlipidemia Continue simvastatin 10 mg daily DVT prophylaxis -Heparin 5000 units subcutaneous BID -TEDS, SCDs CODE STATUS -CPR/cardioversion ok -NO INTUBATION Continued [facility] stay due to: inadequate po fluid intake, ambulation difficulties Discharge planning: home with home health
[2016-05-29] MEDS: FLUCONAZOLE / NSS 100 MG in PREMIXED NSS 50 ML IV SCH (15:04)
[2016-05-29 16:15] VITALS: BP 114/76; PULSE 85; TEMP 36.2; O2SAT 97
--- NOTE | 2016-05-29 19:50 | Infectious Disease Progress Nt ---
Progress Note Date of Service May 29, 2016. Subjective Pt evaluation today including: conversation w/ patient, physical exam, chart review, lab review, review of studies, conversation w/ field sales consultant, review of inpatient medication list Cough unchanged. Remains afebrile. No new complaints. All Other Systems: Reviewed and Negative Medications Current Inpatient Medications Medications (Trade) Dose Ordered Sig/Zayda Route Start Time Stop Time Status Last Admin Dose Admin Hydralazine HCl (HydrALAZINE INJ) 5 mg Q6H PRN IV. 05/20/16 19:15 06/19/16 19:14 Acetaminophen (Tylenol Tab) 650 mg Q4H PRN PO 05/20/16 19:15 06/19/16 19:14 Al Hydrox/Mg Hydrox/Simethicone (Maalox Max Susp) 15 ml Q4H PRN PO 05/20/16 19:15 06/19/16 19:14 Polyethylene (Miralax Powder Packet) 17 gm DAILY PRN PO 05/20/16 19:15 06/19/16 19:14 05/26/16 07:51 17 GM Ondansetron HCl (Zofran Inj) 4 mg Q6H PRN IV 05/20/16 19:15 06/19/16 19:14 Heparin Sodium (Porcine) (Heparin Sq 5000 Unit/0.5ml) 5,000 unit Q12H SQ 05/20/16 22:00 06/19/16 21:59 05/29/16 10:35 5,000 UNIT Enteral Nutritional Formula (Boost) 1 can TID PO 05/20/16 21:00 06/19/16 20:59 05/28/16 19:51 1 CAN Aspirin (Ecotrin Tab) 81 mg QAM PO 05/21/16 08:00 06/20/16 08:59 05/29/16 07:27 81 MG Docusate Sodium (coLACE CAP) 100 mg BID PO 05/20/16 21:00 06/19/16 20:59 05/29/16 07:27 100 MG Levothyroxine Sodium (Synthroid Tab) 50 mcg DAILYBB PO 05/21/16 06:30 06/20/16 06:59 05/29/16 06:32 50 MCG Mirtazapine (Remeron Tab) 15 mg HS PO 05/20/16 21:00 06/19/16 20:59 05/28/16 21:03 15 MG Simvastatin (Zocor Tab) 10 mg HS PO 05/20/16 21:00 06/19/16 20:59 05/28/16 21:03 10 MG Artificial Tears (Artificial Tears) 1 drops QID OP 05/20/16 21:00 06/19/16 20:59 05/29/16 18:21 1 DROPS Albuterol/ Ipratropium (Combivent Respimat Inh) 1 puffs QID INH 05/22/16 16:00 06/21/16 15:59 05/29/16 18:21 1 PUFFS Albuterol/ Ipratropium (Duoneb) 3 ml Q4H PRN INH 05/22/16 12:45 06/21/16 12:44 Prednisone (PredniSONE TAB) 30 mg DAILY PO 05/26/16 08:00 06/25/16 07:59 05/29/16 07:26 30 MG Nystatin 5 ml 5 ml QID PO 05/27/16 17:00 06/06/16 16:59 05/29/16 18:21 5 ML Fluconazole/ Sodium Chloride/ Prmx (Diflucan IV/ Premixed Nss) 50 ml @ 100 mls/hr DAILY@1400 IV 05/28/16 14:00 06/07/16 13:59 05/29/16 15:04 100 MLS/HR Olmesartan (Benicar Tab) 10 mg BID PO 05/28/16 20:00 06/27/16 19:59 05/29/16 07:26 10 MG Objective Vital Signs Date Time Temp Pulse Resp B/P Pulse Ox O2 Delivery O2 Flow Rate FiO2 05/29/16 16:25 Nasal Cannula 2.0 05/29/16 16:15 36.2 85 20 114/76 97 2.0 05/29/16 14:23 90 92 05/29/16 09:00 Nasal Cannula 2.0 05/29/16 08:03 36.4 75 16 136/76 95 Room Air 05/29/16 00:30 Room Air 05/29/16 00:19 36.4 83 18 99/62 95 Nasal Cannula 2.0 05/29/16 00:00 Nasal Cannula 2.0 Physical Exam General Appearance: WD/WN, no apparent distress Eyes: normal inspection, sclerae normal ENT: normal ENT inspection, pharynx normal Neck: supple, no adenopathy, trachea midline Respiratory/Chest: chest non-tender, no respiratory distress, no accessory muscle use, + rales Cardiovascular: regular rate, rhythm, no gallop, no murmur Abdomen: normal bowel sounds, non tender, soft, no organomegaly Extremities: non-tender, no calf tenderness Neurologic/Psychiatric: alert, oriented x 3 Skin: normal color, no rash Lymphatic: no adenopathy Laboratory Results Last 24 Hours Test 05/29/16 05:17 White Blood Count 12.58 K/uL Red Blood Count 3.69 M/uL Hemoglobin 11.5 g/dL Hematocrit 33.2 % Mean Corpuscular Volume 90.0 fL Mean Corpuscular Hemoglobin 31.2 pg Mean Corpuscular Hemoglobin Concent 34.6 g/dl RDW Standard Deviation 53.4 fL RDW Coefficient of Variation 16.5 % Platelet Count 415 K/uL Mean Platelet Volume 8.6 fL Sodium Level 138 mmol/L Potassium Level 4.0 mmol/L Chloride Level 100 mmol/L Carbon Dioxide Level 32 mmol/L Anion Gap 6.0 mmol/L Blood Urea Nitrogen 22 mg/dl Creatinine 0.75 mg/dl Est Creatinine Clear Calc Drug Dose 66.0 ml/min Estimated GFR () 102.6 Estimated GFR (Non- 88.5 BUN/Creatinine Ratio 29.8 Random Glucose 85 mg/dl Calcium Level 8.5 mg/dl Assessment and Plan Progressive pulmonary process with cavitation with positive AFB in patient with chronic interstitial pneumonitis and bronchiectasis. Given negative Quantiferon , lack of travel or exposure history, and lack of other systemic symptoms, agree that this is more likely DENAE and not Tb. Would continue on isolation for now. Hopefully with DNA probe we will have answer soon whether this is TB or not.
[2016-05-29] MEDS: POLYETHYLENE (MIRALAX) 17 GM PACK PO PRN (20:57)
[2016-05-29] MEDS: SIMVASTATIN 10 MG TAB PO SCH (20:58)
[2016-05-29] MEDS: MIRTAZAPINE TAB 15 MG TAB PO SCH (20:59)
[2016-05-29 23:59] VITALS: BP 117/57; PULSE 83; TEMP 36.6; O2SAT 95
[2016-05-30] MEDS: LEVOTHYROXINE 50 MCG TAB PO SCH (06:04)
[2016-05-30 06:17] LABS: BUN/CREATININE RATIO 32.1 (10-20); CALCIUM 8.7 mg/dl (8.5-10.1); CREATININE 0.74 mg/dl (0.60-1.40); POTASSIUM 4.3 mmol/L (3.5-5.1)
[2016-05-30 07:17] VITALS: BP 148/65; PULSE 89; TEMP 36.4; O2SAT 96
[2016-05-30] MEDS: OLMESARTAN MEDOXOMIL 20 MG TAB PO SCH ×2 (08:36→20:03)
[2016-05-30] MEDS: IPRATROPIUM BROMIDE/ALBUTEROL respimat INH INH SCH ×4 (08:36→20:04)
[2016-05-30] MEDS: ARTIFICIAL TEARS OP SOLN OP SCH ×8 (08:36→20:04)
[2016-05-30] MEDS: BOOST VANILLA PO SCH ×6 (08:36→20:03)
[2016-05-30] MEDS: DOCUSATE SODIUM 100 MG CAP PO SCH ×2 (08:36→20:03)
[2016-05-30] MEDS: POLYETHYLENE (MIRALAX) 17 GM PACK PO PRN (08:36)
[2016-05-30] MEDS: ASPIRIN 81 MG ECTAB PO SCH (08:37)
[2016-05-30] MEDS: NYSTATIN SUSP 500,000 U/5 ML UDC PO SCH ×4 (08:37→20:04)
[2016-05-30] MEDS: HEPARIN SOD 5000 UNIT/0.5 ML CARP SQ SCH ×2 (10:30→20:11)
[2016-05-30] MEDS: FLUCONAZOLE / NSS 100 MG in PREMIXED NSS 50 ML IV SCH (12:20)
--- NOTE | 2016-05-30 12:31 | Pulmonology Progress Note ---
Pulmonary Progress Note Date of Service May 30, 2016. Attending Dr. Velasquez Subjective Feels his appetite is improved. Denies nausea or vomiting. Denies any change in his dyspnea at rest or with exertion stating that it is still "horrible" continued cough - unchanged. No chest pain. Objective 75-yo male with h/o O2 dependent ILD/pulmonary fibrosis admitted to [facility] 05/20 with progressive dyspnea, hypoxia and weight loss. In the ER he was hypoxic - no leukocytosis. ABG 05/21: 7.45/41/97-4LP/. CXR consistent with advanced ILD and cystic opacities progressive since 11/2015. CT chest 05/20: progressive parenchymal fibrotic changes with bilateral bronchiectasis and ? overlying JAYA infiltrate. Persistent slightly improved pneumomediastinum. Sputum: + AFB. Bronchoscopy 05/24/16: + paolo and rare + AFB smear. Quant Gold: negative. ID consulted with suspected non-TB mycobaterium. He was treated with steroid and fluconazole. Antibiotic held. Today: - O2: 95-96%: 2LPM - Afebrile, HD stable - CO2: 32, WBC: 12.58, Quant gold: negative - 30mg prednisone Physical Exam: Constitutional: Chronically ill appearing cachectic male lying in hospital bed. No acute distress HEENT: EOMi, PERRLA, no injection. Moist mucous membranes Respiratory: Shallow respirations. Nasal cannula in place. NO cough on exam. Fine bibasilar crackles bases to mid-lung amaya. No wheeze. CV: RRR, no MRG. Warm and perfused peripherally Abdomen: Soft, non-tender. Active bowel sounds MSK/Extremities: Moving symmetrically. Muscle wasting throughout. No peripheral edema Neurologic: A&O. Good data recall. Follows complex commands Psychiatric: Flat affect. Assessment & Plan 75-yo male presents with hypoxia and hypoxic respiratory failure in the setting if progressive ILD. Respiratory cultures: AFB - DNA prob pending. No further recommendations to treatment plan at this time. Will continue to follow along. Case and patient reviewed and agree with plan. Data Medications: Current Inpatient Medications Medications (Trade) Dose Ordered Sig/Zayda Route Start Time Stop Time Status Last Admin Dose Admin Hydralazine HCl (HydrALAZINE INJ) 5 mg Q6H PRN IV. 05/20/16 19:15 06/19/16 19:14 Acetaminophen (Tylenol Tab) 650 mg Q4H PRN PO 05/20/16 19:15 06/19/16 19:14 Al Hydrox/Mg Hydrox/Simethicone (Maalox Max Susp) 15 ml Q4H PRN PO 05/20/16 19:15 06/19/16 19:14 Polyethylene (Miralax Powder Packet) 17 gm DAILY PRN PO 05/20/16 19:15 06/19/16 19:14 05/30/16 08:36 17 GM Ondansetron HCl (Zofran Inj) 4 mg Q6H PRN IV 05/20/16 19:15 06/19/16 19:14 Heparin Sodium (Porcine) (Heparin Sq 5000 Unit/0.5ml) 5,000 unit Q12H SQ 05/20/16 22:00 06/19/16 21:59 05/30/16 10:30 5,000 UNIT Enteral Nutritional Formula (Boost) 1 can TID PO 05/20/16 21:00 06/19/16 20:59 05/30/16 08:36 1 CAN Aspirin (Ecotrin Tab) 81 mg QAM PO 05/21/16 08:00 06/20/16 08:59 05/30/16 08:37 81 MG Docusate Sodium (coLACE CAP) 100 mg BID PO 05/20/16 21:00 06/19/16 20:59 05/30/16 08:36 100 MG Levothyroxine Sodium (Synthroid Tab) 50 mcg DAILYBB PO 05/21/16 06:30 06/20/16 06:59 05/30/16 06:04 50 MCG Mirtazapine (Remeron Tab) 15 mg HS PO 05/20/16 21:00 06/19/16 20:59 05/29/16 20:59 15 MG Simvastatin (Zocor Tab) 10 mg HS PO 05/20/16 21:00 06/19/16 20:59 05/29/16 20:58 10 MG Artificial Tears (Artificial Tears) 1 drops QID OP 05/20/16 21:00 06/19/16 20:59 05/30/16 08:36 1 DROPS Albuterol/ Ipratropium (Combivent Respimat Inh) 1 puffs QID INH 05/22/16 16:00 06/21/16 15:59 05/30/16 08:36 1 PUFFS Albuterol/ Ipratropium (Duoneb) 3 ml Q4H PRN INH 05/22/16 12:45 06/21/16 12:44 Prednisone (PredniSONE TAB) 30 mg DAILY PO 05/26/16 08:00 06/25/16 07:59 05/30/16 08:37 30 MG Nystatin 5 ml 5 ml QID PO 05/27/16 17:00 06/06/16 16:59 05/30/16 08:37 5 ML Fluconazole/ Sodium Chloride/ Prmx (Diflucan IV/ Premixed Nss) 50 ml @ 100 mls/hr DAILY@1400 IV 05/28/16 14:00 06/07/16 13:59 05/29/16 15:04 100 MLS/HR Olmesartan (Benicar Tab) 10 mg BID PO 05/28/16 20:00 06/27/16 19:59 05/30/16 08:36 10 MG I & O: 24-Hour Column 05/30/16 08:00 Intake Total 670 ml Output Total 2025 ml Balance -1355 ml Vital Signs: Date Time Temp Pulse Resp B/P Pulse Ox O2 Delivery O2 Flow Rate FiO2 05/30/16 10:55 Nasal Cannula 2.0 05/30/16 07:17 36.4 89 20 148/65 96 05/30/16 00:15 Nasal Cannula 2.0 05/29/16 23:59 36.6 83 20 117/57 95 2.0 05/29/16 21:47 Nasal Cannula 2.0 05/29/16 16:25 Nasal Cannula 2.0 05/29/16 16:15 36.2 85 20 114/76 97 2.0 05/29/16 14:23 90 92 Laboratory Results: Last 24 Hours Test 05/30/16 05:14 Sodium Level 138 mmol/L Potassium Level 4.3 mmol/L Chloride Level 101 mmol/L Carbon Dioxide Level 32 mmol/L Anion Gap 5.0 mmol/L Blood Urea Nitrogen 24 mg/dl Creatinine 0.74 mg/dl Est Creatinine Clear Calc Drug Dose 66.9 ml/min Estimated GFR () 103.1 Estimated GFR (Non- 89.0 BUN/Creatinine Ratio 32.1 Random Glucose 82 mg/dl Calcium Level 8.7 mg/dl
--- NOTE | 2016-05-30 13:35 | Infectious Disease Progress Nt ---
Progress Note Date of Service May 30, 2016. Subjective Pt evaluation today including: conversation w/ patient, physical exam, chart review, lab review, review of studies, conversation w/ public relations consultant, review of inpatient medication list Still with significant cough. Remains afebrile. No other new complaints. All Other Systems: Reviewed and Negative Medications Current Inpatient Medications Medications (Trade) Dose Ordered Sig/Zayda Route Start Time Stop Time Status Last Admin Dose Admin Hydralazine HCl (HydrALAZINE INJ) 5 mg Q6H PRN IV. 05/20/16 19:15 06/19/16 19:14 Acetaminophen (Tylenol Tab) 650 mg Q4H PRN PO 05/20/16 19:15 06/19/16 19:14 Al Hydrox/Mg Hydrox/Simethicone (Maalox Max Susp) 15 ml Q4H PRN PO 05/20/16 19:15 06/19/16 19:14 Polyethylene (Miralax Powder Packet) 17 gm DAILY PRN PO 05/20/16 19:15 06/19/16 19:14 05/30/16 08:36 17 GM Ondansetron HCl (Zofran Inj) 4 mg Q6H PRN IV 05/20/16 19:15 06/19/16 19:14 Heparin Sodium (Porcine) (Heparin Sq 5000 Unit/0.5ml) 5,000 unit Q12H SQ 05/20/16 22:00 06/19/16 21:59 05/30/16 10:30 5,000 UNIT Enteral Nutritional Formula (Boost) 1 can TID PO 05/20/16 21:00 06/19/16 20:59 05/30/16 08:36 1 CAN Aspirin (Ecotrin Tab) 81 mg QAM PO 05/21/16 08:00 06/20/16 08:59 05/30/16 08:37 81 MG Docusate Sodium (coLACE CAP) 100 mg BID PO 05/20/16 21:00 06/19/16 20:59 05/30/16 08:36 100 MG Levothyroxine Sodium (Synthroid Tab) 50 mcg DAILYBB PO 05/21/16 06:30 06/20/16 06:59 05/30/16 06:04 50 MCG Mirtazapine (Remeron Tab) 15 mg HS PO 05/20/16 21:00 06/19/16 20:59 4/5/17 20:59 15 MG Simvastatin (Zocor Tab) 10 mg HS PO 05/20/16 21:00 06/19/16 20:59 05/29/16 20:58 10 MG Artificial Tears (Artificial Tears) 1 drops QID OP 05/20/16 21:00 06/19/16 20:59 05/30/16 12:20 1 DROPS Albuterol/ Ipratropium (Combivent Respimat Inh) 1 puffs QID INH 05/22/16 16:00 06/21/16 15:59 05/30/16 12:20 1 PUFFS Albuterol/ Ipratropium (Duoneb) 3 ml Q4H PRN INH 05/22/16 12:45 06/21/16 12:44 Prednisone (PredniSONE TAB) 30 mg DAILY PO 05/26/16 08:00 06/25/16 07:59 05/30/16 08:37 30 MG Nystatin 5 ml 5 ml QID PO 05/27/16 17:00 06/06/16 16:59 05/30/16 12:20 5 ML Fluconazole/ Sodium Chloride/ Prmx (Diflucan IV/ Premixed Nss) 50 ml @ 100 mls/hr DAILY@1400 IV 05/28/16 14:00 06/07/16 13:59 05/30/16 12:20 100 MLS/HR Olmesartan (Benicar Tab) 10 mg BID PO 05/28/16 20:00 06/27/16 19:59 05/30/16 08:36 10 MG Objective Vital Signs Date Time Temp Pulse Resp B/P Pulse Ox O2 Delivery O2 Flow Rate FiO2 05/30/16 10:55 Nasal Cannula 2.0 05/30/16 07:17 36.4 89 20 148/65 96 05/30/16 00:15 Nasal Cannula 2.0 05/29/16 23:59 36.6 83 20 117/57 95 2.0 05/29/16 21:47 Nasal Cannula 2.0 05/29/16 16:25 Nasal Cannula 2.0 05/29/16 16:15 36.2 85 20 114/76 97 2.0 05/29/16 14:23 90 92 Physical Exam General Appearance: WD/WN, no apparent distress Eyes: normal inspection, sclerae normal ENT: normal ENT inspection, pharynx normal Neck: supple, no adenopathy, trachea midline Respiratory/Chest: chest non-tender, no respiratory distress, + rales Cardiovascular: regular rate, rhythm, no gallop, no murmur Abdomen: normal bowel sounds, non tender, soft, no organomegaly Extremities: non-tender, no calf tenderness Neurologic/Psychiatric: alert, oriented x 3 Skin: normal color, warm/dry, no rash Lymphatic: no adenopathy Laboratory Results Last 24 Hours Test 05/30/16 05:14 Sodium Level 138 mmol/L Potassium Level 4.3 mmol/L Chloride Level 101 mmol/L Carbon Dioxide Level 32 mmol/L Anion Gap 5.0 mmol/L Blood Urea Nitrogen 24 mg/dl Creatinine 0.74 mg/dl Est Creatinine Clear Calc Drug Dose 66.9 ml/min Estimated GFR () 103.1 Estimated GFR (Non- 89.0 BUN/Creatinine Ratio 32.1 Random Glucose 82 mg/dl Calcium Level 8.7 mg/dl Assessment and Plan Progressive pulmonary process with cavitation with positive AFB in patient with chronic interstitial pneumonitis and bronchiectasis. Given negative Quantiferon , lack of travel or exposure history, and lack of other systemic symptoms, agree that this is more likely DENAE and not Tb. Would continue on isolation for now. Hopefully with DNA probe we will have answer soon whether this is TB or not. Will follow.
[2016-05-30 15:37] VITALS: BP 129/76; PULSE 75; TEMP 36.3; O2SAT 95
--- NOTE | 2016-05-30 16:28 | Progress Note ---
Subjective Date of Service: May 30, 2016. Subjective Pt evaluation today including: conversation w/ patient, physical exam, lab review, conversation w/ multi site leasing consultant, review of inpatient medication list Pain: no pain PO Intake: improving Voiding: rivers catheter in place mouth sores much better, responding to Diflucan still frustrated being in isolation explained that we are still waiting for answer, d/w ID Problem List Medical Problems: (1) Change in mental status Status: Acute (2) Pneumonia Status: Acute (3) Weakness Status: Acute Review of Systems Constitutional: + fatigue, + weakness ENT: + problem reported (mouth sores much better) Respiratory: + cough, + dyspnea on exertion All Other Systems: Reviewed and Negative Medications Current Inpatient Medications Medications (Trade) Dose Ordered Sig/Zayda Route Start Time Stop Time Status Last Admin Dose Admin Hydralazine HCl (HydrALAZINE INJ) 5 mg Q6H PRN IV. 05/20/16 19:15 06/19/16 19:14 Acetaminophen (Tylenol Tab) 650 mg Q4H PRN PO 05/20/16 19:15 06/19/16 19:14 Al Hydrox/Mg Hydrox/Simethicone (Maalox Max Susp) 15 ml Q4H PRN PO 05/20/16 19:15 06/19/16 19:14 Polyethylene (Miralax Powder Packet) 17 gm DAILY PRN PO 05/20/16 19:15 06/19/16 19:14 05/30/16 08:36 17 GM Ondansetron HCl (Zofran Inj) 4 mg Q6H PRN IV 05/20/16 19:15 06/19/16 19:14 Heparin Sodium (Porcine) (Heparin Sq 5000 Unit/0.5ml) 5,000 unit Q12H SQ 05/20/16 22:00 06/19/16 21:59 05/30/16 10:30 5,000 UNIT Enteral Nutritional Formula (Boost) 1 can TID PO 05/20/16 21:00 06/19/16 20:59 05/30/16 08:36 1 CAN Aspirin (Ecotrin Tab) 81 mg QAM PO 05/21/16 08:00 06/20/16 08:59 05/30/16 08:37 81 MG Docusate Sodium (coLACE CAP) 100 mg BID PO 05/20/16 21:00 06/19/16 20:59 05/30/16 08:36 100 MG Levothyroxine Sodium (Synthroid Tab) 50 mcg DAILYBB PO 05/21/16 06:30 06/20/16 06:59 05/30/16 06:04 50 MCG Mirtazapine (Remeron Tab) 15 mg HS PO 05/20/16 21:00 06/19/16 20:59 05/29/16 20:59 15 MG Simvastatin (Zocor Tab) 10 mg HS PO 05/20/16 21:00 06/19/16 20:59 05/29/16 20:58 10 MG Artificial Tears (Artificial Tears) 1 drops QID OP 05/20/16 21:00 06/19/16 20:59 05/30/16 12:20 1 DROPS Albuterol/ Ipratropium (Combivent Respimat Inh) 1 puffs QID INH 05/22/16 16:00 06/21/16 15:59 05/30/16 12:20 1 PUFFS Albuterol/ Ipratropium (Duoneb) 3 ml Q4H PRN INH 05/22/16 12:45 06/21/16 12:44 Prednisone (PredniSONE TAB) 30 mg DAILY PO 05/26/16 08:00 06/25/16 07:59 05/30/16 08:37 30 MG Nystatin 5 ml 5 ml QID PO 05/27/16 17:00 06/06/16 16:59 05/30/16 12:20 5 ML Fluconazole/ Sodium Chloride/ Prmx (Diflucan IV/ Premixed Nss) 50 ml @ 100 mls/hr DAILY@1400 IV 05/28/16 14:00 06/07/16 13:59 05/30/16 12:20 100 MLS/HR Olmesartan (Benicar Tab) 10 mg BID PO 05/28/16 20:00 06/27/16 19:59 05/30/16 08:36 10 MG Objective Vital Signs Date Time Temp Pulse Resp B/P Pulse Ox O2 Delivery O2 Flow Rate FiO2 05/30/16 16:00 Nasal Cannula 2.0 05/30/16 15:37 36.3 75 20 129/76 95 Nasal Cannula 2.0 05/30/16 10:55 Nasal Cannula 2.0 05/30/16 07:17 36.4 89 20 148/65 96 05/30/16 00:15 Nasal Cannula 2.0 05/29/16 23:59 36.6 83 20 117/57 95 2.0 05/29/16 21:47 Nasal Cannula 2.0 Physical Exam General Appearance: WD/WN, no apparent distress Eyes: normal inspection, EOMI, sclerae normal ENT: hearing grossly normal, + pertinent finding (oral thrush improving) Neck: supple, no adenopathy, no JVD Respiratory/Chest: chest non-tender, lungs clear, no respiratory distress, no accessory muscle use, + decreased breath sounds Cardiovascular: regular rate, rhythm, no edema, no gallop, no JVD, no murmur Abdomen: normal bowel sounds, non tender, soft, no organomegaly Extremities: normal range of motion, non-tender, normal inspection, no pedal edema, no calf tenderness Neurologic/Psychiatric: agricultural loan officer II-XII nml as tested, no motor/sensory deficits, alert, normal mood/affect, oriented x 3 Skin: normal color, warm/dry, no rash Laboratory Results Last 24 Hours Test 05/30/16 05:14 Sodium Level 138 mmol/L Potassium Level 4.3 mmol/L Chloride Level 101 mmol/L Carbon Dioxide Level 32 mmol/L Anion Gap 5.0 mmol/L Blood Urea Nitrogen 24 mg/dl Creatinine 0.74 mg/dl Est Creatinine Clear Calc Drug Dose 66.9 ml/min Estimated GFR () 103.1 Estimated GFR (Non- 89.0 BUN/Creatinine Ratio 32.1 Random Glucose 82 mg/dl Calcium Level 8.7 mg/dl Assessment and Plan 75-year-old male with an unfortunate history of progressive interstitial lung disease presents to the emergency department with acute on chronic respiratory failure S/P bronchoscopy 05/24 that was uneventful Acute on chronic respiratory failure with hypoxia, multifactorial; severe interstitial lung disease, cavitary lung lesions versus blebs, 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 started tapering dose of prednisone by Dr. Praveen Alvarez few AFB seen on sputum samples, Quantiferon gold negative, no travel or exposure history appreciate ID consult, could be MAC, keep in isolation still awaiting determination of treatment strategy, awaiting DNA probe checked again with ID today, keep on isolation Oral thrush: continue Nystatin S/S QID, did not help continue Diflucan 100mg IV, will change to PO prior to discharge would complete 14 days total responding well to treatment Hypertension can resume Olmesartan at 10 mg twice daily continue Hydralazine 5 mg IV q 6 hr PRN Hypothyroidism Continue Synthroid 50 g daily Restless leg syndrome Continue Remeron 15 mg at night Weight loss possibly due d/t chronic disease Hyperlipidemia Continue simvastatin 10 mg daily DVT prophylaxis -Heparin 5000 units subcutaneous BID -TEDS, SCDs CODE STATUS -CPR/cardioversion ok -NO INTUBATION Continued [facility] stay due to: inadequate po fluid intake, ambulation difficulties Discharge planning: home with home health
[2016-05-30] MEDS: SIMVASTATIN 10 MG TAB PO SCH (20:03)
[2016-05-30] MEDS: MIRTAZAPINE TAB 15 MG TAB PO SCH (20:03)
[2016-05-31 01:03] VITALS: BP 155/71; PULSE 82; TEMP 36.5; O2SAT 97
[2016-05-31] MEDS: LEVOTHYROXINE 50 MCG TAB PO SCH (05:30)
[2016-05-31 06:34] LABS: BUN/CREATININE RATIO 30.2 (10-20); CALCIUM 9.2 mg/dl (8.5-10.1); CREATININE 0.74 mg/dl (0.60-1.40); POTASSIUM 4.4 mmol/L (3.5-5.1)
[2016-05-31 07:42] VITALS: BP 149/84; PULSE 89; TEMP 36.6; O2SAT 95
[2016-05-31] MEDS: ARTIFICIAL TEARS OP SOLN OP SCH ×8 (09:02→20:32)
[2016-05-31] MEDS: IPRATROPIUM BROMIDE/ALBUTEROL respimat INH INH SCH ×4 (09:02→20:00)
[2016-05-31] MEDS: OLMESARTAN MEDOXOMIL 20 MG TAB PO SCH ×2 (09:04→20:33)
[2016-05-31] MEDS: BOOST VANILLA PO SCH ×6 (09:04→20:00)
[2016-05-31] MEDS: DOCUSATE SODIUM 100 MG CAP PO SCH ×2 (09:04→20:33)
[2016-05-31] MEDS: ASPIRIN 81 MG ECTAB PO SCH (09:05)
[2016-05-31] MEDS: NYSTATIN SUSP 500,000 U/5 ML UDC PO SCH ×4 (09:07→20:31)
[2016-05-31] MEDS: HEPARIN SOD 5000 UNIT/0.5 ML CARP SQ SCH ×2 (09:58→20:37)
--- NOTE | 2016-05-31 10:07 | Progress Note ---
Subjective Date of Service: May 31, 2016. 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 he was pleased to here of results, discussed that we will start antibiotics today he asked about his mouth sores, thrush, discussed that we will continue Diflucan Problem List Medical Problems: (1) Change in mental status Status: Acute (2) Pneumonia Status: Acute (3) Weakness Status: Acute Review of Systems Constitutional: + weakness ENT: + problem reported (oral thrush) Respiratory: + dyspnea on exertion Neurologic: + weakness All Other Systems: Reviewed and Negative Medications Current Inpatient Medications Medications (Trade) Dose Ordered Sig/Zayda Route Start Time Stop Time Status Last Admin Dose Admin Hydralazine HCl (HydrALAZINE INJ) 5 mg Q6H PRN IV. 05/20/16 19:15 06/19/16 19:14 Acetaminophen (Tylenol Tab) 650 mg Q4H PRN PO 05/20/16 19:15 06/19/16 19:14 Al Hydrox/Mg Hydrox/Simethicone (Maalox Max Susp) 15 ml Q4H PRN PO 05/20/16 19:15 06/19/16 19:14 Polyethylene (Miralax Powder Packet) 17 gm DAILY PRN PO 05/20/16 19:15 06/19/16 19:14 05/30/16 08:36 17 GM Ondansetron HCl (Zofran Inj) 4 mg Q6H PRN IV 05/20/16 19:15 06/19/16 19:14 Heparin Sodium (Porcine) (Heparin Sq 5000 Unit/0.5ml) 5,000 unit Q12H SQ 05/20/16 22:00 06/19/16 21:59 05/31/16 09:58 5,000 UNIT Enteral Nutritional Formula (Boost) 1 can TID PO 05/20/16 21:00 06/19/16 20:59 05/31/16 09:04 1 CAN Aspirin (Ecotrin Tab) 81 mg QAM PO 05/21/16 08:00 06/20/16 08:59 05/31/16 09:05 81 MG Docusate Sodium (coLACE CAP) 100 mg BID PO 05/20/16 21:00 06/19/16 20:59 05/31/16 09:04 100 MG Levothyroxine Sodium (Synthroid Tab) 50 mcg DAILYBB PO 05/21/16 06:30 06/20/16 06:59 05/31/16 05:30 50 MCG Mirtazapine (Remeron Tab) 15 mg HS PO 05/20/16 21:00 06/19/16 20:59 05/30/16 20:03 15 MG Simvastatin (Zocor Tab) 10 mg HS PO 05/20/16 21:00 06/19/16 20:59 05/30/16 20:03 10 MG Artificial Tears (Artificial Tears) 1 drops QID OP 05/20/16 21:00 06/19/16 20:59 05/31/16 09:02 1 DROPS Albuterol/ Ipratropium (Combivent Respimat Inh) 1 puffs QID INH 05/22/16 16:00 06/21/16 15:59 05/31/16 09:02 1 PUFFS Albuterol/ Ipratropium (Duoneb) 3 ml Q4H PRN INH 05/22/16 12:45 06/21/16 12:44 Prednisone (PredniSONE TAB) 30 mg DAILY PO 05/26/16 08:00 06/25/16 07:59 05/31/16 09:05 30 MG Nystatin 5 ml 5 ml QID PO 05/27/16 17:00 06/06/16 16:59 05/31/16 09:07 5 ML Fluconazole/ Sodium Chloride/ Prmx (Diflucan IV/ Premixed Nss) 50 ml @ 100 mls/hr DAILY@1400 IV 05/28/16 14:00 06/07/16 13:59 05/30/16 12:20 100 MLS/HR Olmesartan (Benicar Tab) 10 mg BID PO 05/28/16 20:00 06/27/16 19:59 05/31/16 09:04 10 MG Rifampin (Rifadin Cap) 300 mg BID PO 05/31/16 20:00 06/07/16 19:59 UNV Ethambutol HCl (Myambutol Tab) 400 mg BID PO 05/31/16 20:00 06/30/16 19:59 UNV Azithromycin (Zithromax Tab) 500 mg QAM PO 06/01/16 08:00 06/07/16 07:59 Azithromycin (Zithromax Tab) 500 mg NOW ONCE PO 05/31/16 10:15 05/31/16 10:16 Objective Vital Signs Date Time Temp Pulse Resp B/P Pulse Ox O2 Delivery O2 Flow Rate FiO2 05/31/16 07:42 36.6 89 20 149/84 95 05/31/16 01:03 36.5 82 18 155/71 97 Nasal Cannula 2.0 05/31/16 00:00 Nasal Cannula 2.0 05/30/16 16:00 Nasal Cannula 2.0 05/30/16 15:37 36.3 75 20 129/76 95 Nasal Cannula 2.0 05/30/16 10:55 Nasal Cannula 2.0 Physical Exam General Appearance: no apparent distress, + cachetic Eyes: normal inspection, EOMI, sclerae normal ENT: + pertinent finding (oral thrush) Neck: supple, no adenopathy, no JVD, trachea midline Respiratory/Chest: chest non-tender, no respiratory distress, no accessory muscle use, + decreased breath sounds Cardiovascular: regular rate, rhythm, no edema, no gallop, no JVD, no murmur Abdomen: normal bowel sounds, non tender, soft, no organomegaly Extremities: normal range of motion, non-tender, normal inspection, no pedal edema, no calf tenderness Neurologic/Psychiatric: managed care analyst II-XII nml as tested, no motor/sensory deficits, alert, normal mood/affect, oriented x 3 Skin: normal color, warm/dry, no rash Laboratory Results Last 24 Hours Test 05/31/16 05:14 Sodium Level 136 mmol/L Potassium Level 4.4 mmol/L Chloride Level 99 mmol/L Carbon Dioxide Level 33 mmol/L Anion Gap 4.0 mmol/L Blood Urea Nitrogen 22 mg/dl Creatinine 0.74 mg/dl Est Creatinine Clear Calc Drug Dose 66.9 ml/min Estimated GFR () 103.1 Estimated GFR (Non- 89.0 BUN/Creatinine Ratio 30.2 Random Glucose 85 mg/dl Calcium Level 9.2 mg/dl Assessment and Plan 75-year-old male with an unfortunate history of progressive interstitial lung disease presents to the emergency department with acute on chronic respiratory failure S/P bronchoscopy 05/24 that was uneventful Acute on chronic respiratory failure with hypoxia, multifactorial; severe interstitial lung disease, cavitary lung lesions versus blebs, 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 started tapering dose of prednisone by Dr. Morton stop Levaquin 05/31: bronchial washings from 05/21 returned as MAC discussed with Dr. Duong, will treat with Ethambutol, Azithromycin and Rifampin still keep on isolation today no evidence that this is tuberculosis Oral thrush: continue Nystatin S/S QID continue Diflucan 100mg IV, will change to PO prior to discharge would complete 14 days total responding well to treatment Hypertension can resume Olmesartan at 10 mg twice daily continue Hydralazine 5 mg IV q 6 hr PRN Hypothyroidism Continue Synthroid 50 g daily Restless leg syndrome Continue Remeron 15 mg at night Weight loss possibly due d/t chronic disease Hyperlipidemia Continue simvastatin 10 mg daily DVT prophylaxis -Heparin 5000 units subcutaneous BID -TEDS, SCDs CODE STATUS -CPR/cardioversion ok -NO INTUBATION Plan: treat with antibiotics, keep on isolation, try to increase activity Continued [facility] stay due to: inadequate po fluid intake, ambulation difficulties Discharge planning: home with home health
[2016-05-31] MEDS ORDERED: AZITHROMYCIN 250 MG TAB PO ONE (10:15)
[2016-05-31] MEDS: FLUCONAZOLE / NSS 100 MG in PREMIXED NSS 50 ML IV SCH (13:39)
[2016-05-31 14:53] VITALS: BP 136/74; PULSE 98; TEMP 36.3; O2SAT 91
--- NOTE | 2016-05-31 17:50 | Infectious Disease Progress Nt ---
Progress Note Date of Service May 31, 2016. Subjective Pt evaluation today including: conversation w/ patient, physical exam, chart review, lab review, review of studies, conversation w/ fitness consultant, review of inpatient medication list Patient feeling about the same. Cough unchanged, no hemoptysis. DNA probe positive for DENAE. All Other Systems: Reviewed and Negative Medications Current Inpatient Medications Medications (Trade) Dose Ordered Sig/Zayda Route Start Time Stop Time Status Last Admin Dose Admin Hydralazine HCl (HydrALAZINE INJ) 5 mg Q6H PRN IV. 05/20/16 19:15 06/19/16 19:14 Acetaminophen (Tylenol Tab) 650 mg Q4H PRN PO 05/20/16 19:15 06/19/16 19:14 Al Hydrox/Mg Hydrox/Simethicone (Maalox Max Susp) 15 ml Q4H PRN PO 05/20/16 19:15 06/19/16 19:14 Polyethylene (Miralax Powder Packet) 17 gm DAILY PRN PO 05/20/16 19:15 06/19/16 19:14 05/30/16 08:36 17 GM Ondansetron HCl (Zofran Inj) 4 mg Q6H PRN IV 05/20/16 19:15 06/19/16 19:14 Heparin Sodium (Porcine) (Heparin Sq 5000 Unit/0.5ml) 5,000 unit Q12H SQ 05/20/16 22:00 06/19/16 21:59 05/31/16 09:58 5,000 UNIT Enteral Nutritional Formula (Boost) 1 can TID PO 05/20/16 21:00 06/19/16 20:59 05/31/16 13:38 1 CAN Aspirin (Ecotrin Tab) 81 mg QAM PO 05/21/16 08:00 06/20/16 08:59 05/31/16 09:05 81 MG Docusate Sodium (coLACE CAP) 100 mg BID PO 05/20/16 21:00 06/19/16 20:59 05/31/16 09:04 100 MG Levothyroxine Sodium (Synthroid Tab) 50 mcg DAILYBB PO 05/21/16 06:30 06/20/16 06:59 05/31/16 05:30 50 MCG Mirtazapine (Remeron Tab) 15 mg HS PO 05/20/16 21:00 06/19/16 20:59 05/30/16 20:03 15 MG Simvastatin (Zocor Tab) 10 mg HS PO 05/20/16 21:00 06/19/16 20:59 05/30/16 20:03 10 MG Artificial Tears (Artificial Tears) 1 drops QID OP 05/20/16 21:00 06/19/16 20:59 05/31/16 12:24 1 DROPS Albuterol/ Ipratropium (Combivent Respimat Inh) 1 puffs QID INH 05/22/16 16:00 06/21/16 15:59 05/31/16 12:24 1 PUFFS Albuterol/ Ipratropium (Duoneb) 3 ml Q4H PRN INH 05/22/16 12:45 06/21/16 12:44 Prednisone (PredniSONE TAB) 30 mg DAILY PO 05/26/16 08:00 06/25/16 07:59 05/31/16 09:05 30 MG Nystatin 5 ml 5 ml QID PO 05/27/16 17:00 06/06/16 16:59 05/31/16 12:25 5 ML Fluconazole/ Sodium Chloride/ Prmx (Diflucan IV/ Premixed Nss) 50 ml @ 100 mls/hr DAILY@1400 IV 05/28/16 14:00 06/07/16 13:59 05/31/16 13:39 100 MLS/HR Olmesartan (Benicar Tab) 10 mg BID PO 05/28/16 20:00 06/27/16 19:59 05/31/16 09:04 10 MG Rifampin (Rifadin Cap) 300 mg BID PO 05/31/16 20:00 06/07/16 19:59 Ethambutol HCl (Myambutol Tab) 400 mg BID PO 05/31/16 20:00 06/30/16 19:59 Azithromycin (Zithromax Tab) 500 mg QAM PO 06/01/16 08:00 06/07/16 07:59 Objective Vital Signs Date Time Temp Pulse Resp B/P Pulse Ox O2 Delivery O2 Flow Rate FiO2 05/31/16 16:00 Nasal Cannula 2.0 05/31/16 14:53 36.3 98 20 136/74 91 Room Air 05/31/16 08:00 Nasal Cannula 2.0 05/31/16 07:42 36.6 89 20 149/84 95 05/31/16 01:03 36.5 82 18 155/71 97 Nasal Cannula 2.0 05/31/16 00:00 Nasal Cannula 2.0 Physical Exam General Appearance: WD/WN, no apparent distress Eyes: normal inspection, sclerae normal ENT: normal ENT inspection, pharynx normal Neck: supple, no adenopathy, trachea midline Respiratory/Chest: chest non-tender, no respiratory distress, no accessory muscle use, + rales Cardiovascular: regular rate, rhythm, no gallop, no murmur Abdomen: normal bowel sounds, non tender, soft, no organomegaly Extremities: non-tender, no calf tenderness Neurologic/Psychiatric: alert, oriented x 3 Skin: normal color, warm/dry, no rash Lymphatic: no adenopathy Laboratory Results Last 24 Hours Test 05/31/16 05:14 Sodium Level 136 mmol/L Potassium Level 4.4 mmol/L Chloride Level 99 mmol/L Carbon Dioxide Level 33 mmol/L Anion Gap 4.0 mmol/L Blood Urea Nitrogen 22 mg/dl Creatinine 0.74 mg/dl Est Creatinine Clear Calc Drug Dose 66.9 ml/min Estimated GFR () 103.1 Estimated GFR (Non- 89.0 BUN/Creatinine Ratio 30.2 Random Glucose 85 mg/dl Calcium Level 9.2 mg/dl Assessment and Plan Progressive pulmonary process with cavitation with positive AFB in patient with chronic interstitial pneumonitis and bronchiectasis now with positive DNA for DENAE. Agree with need for treatment for DENAE given clinical picture, and have recommended combination of azithromycin, rifampin, and ethambutol. Patient will need to be monitored for possible side effects and potential for liver toxicity and other side effects. Discuss with all involved.
[2016-05-31] MEDS: ETHAMBUTOL HCL 400 MG TAB PO SCH (20:00)
[2016-05-31] MEDS: MIRTAZAPINE TAB 15 MG TAB PO SCH (20:34)
[2016-05-31] MEDS: SIMVASTATIN 10 MG TAB PO SCH (20:34)
[2016-05-31] MEDS: RIFAMPIN 300 MG CAP PO SCH (20:35)
[2016-05-31 23:00] VITALS: BP 149/84; PULSE 81; TEMP 36.4; O2SAT 99
[2016-06-01] MEDS: LEVOTHYROXINE 50 MCG TAB PO SCH (05:49)
[2016-06-01 06:46] LABS: HEMATOCRIT 34.9 % (42-52); MEAN CELL VOLUME 92.3 fL (80-100); MEAN CORPUSCULAR HEMOGLOBIN 31.5 pg (25-34); MEAN CORPUSCULAR HGB CONC 34.1 g/dl (32-36); MEAN PLATELET VOLUME 9.4 fL (7.4-10.4); PLATELET COUNT 430 K/uL (130-400); RED BLOOD COUNT 3.78 M/uL (4.7-6.1); WHITE BLOOD COUNT 20.28 K/uL (4.8-10.8)
[2016-06-01 06:58] VITALS: BP 100/63; PULSE 117; TEMP 36.4; O2SAT 100
[2016-06-01 07:18] LABS: BUN/CREATININE RATIO 24.7 (10-20); CALCIUM 9.1 mg/dl (8.5-10.1); CREATININE 0.9 mg/dl (0.60-1.40); POTASSIUM 4.6 mmol/L (3.5-5.1)
[2016-06-01] MEDS: IPRATROPIUM BROMIDE/ALBUTEROL respimat INH INH SCH ×4 (07:42→20:10)
[2016-06-01] MEDS: OLMESARTAN MEDOXOMIL 20 MG TAB PO SCH ×2 (07:42→20:03)
[2016-06-01] MEDS: ARTIFICIAL TEARS OP SOLN OP SCH ×10 (07:42→20:03)
[2016-06-01] MEDS: DOCUSATE SODIUM 100 MG CAP PO SCH ×2 (07:43→20:00)
[2016-06-01] MEDS: BOOST VANILLA PO SCH ×6 (07:43→21:23)
[2016-06-01] MEDS: ETHAMBUTOL HCL 400 MG TAB PO SCH ×2 (07:44→20:05)
[2016-06-01] MEDS: ASPIRIN 81 MG ECTAB PO SCH (07:44)
[2016-06-01] MEDS: NYSTATIN SUSP 500,000 U/5 ML UDC PO SCH ×4 (07:45→20:07)
[2016-06-01] MEDS: RIFAMPIN 300 MG CAP PO SCH ×2 (07:45→20:05)
[2016-06-01] MEDS: HEPARIN SOD 5000 UNIT/0.5 ML CARP SQ SCH ×2 (10:00→21:22)
[2016-06-01 11:05] VITALS: O2SAT 100
[2016-06-01] MEDS: AZITHROMYCIN 250 MG TAB PO SCH (12:16)
[2016-06-01] MEDS: FLUCONAZOLE / NSS 100 MG in PREMIXED NSS 50 ML IV SCH (14:51)
--- NOTE | 2016-06-01 15:18 | Progress Note ---
Subjective Date of Service: Jun 01, 2016. Subjective Pt evaluation today including: conversation w/ patient, physical exam, lab review, review of inpatient medication list Pain: no pain PO Intake: improving Voiding: no voiding problems patient reports that breathing is stable less mouth pain today, almost none eating better asked that I call and update his Problem List Medical Problems: (1) Change in mental status Status: Acute (2) Pneumonia Status: Acute (3) Weakness Status: Acute Review of Systems Constitutional: + fatigue, + weakness, + weight loss ENT: + problem reported (mouth sores) Respiratory: + dyspnea on exertion All Other Systems: Reviewed and Negative Medications Current Inpatient Medications Medications (Trade) Dose Ordered Sig/Zayda Route Start Time Stop Time Status Last Admin Dose Admin Hydralazine HCl (HydrALAZINE INJ) 5 mg Q6H PRN IV. 05/20/16 19:15 06/19/16 19:14 Acetaminophen (Tylenol Tab) 650 mg Q4H PRN PO 05/20/16 19:15 06/19/16 19:14 Al Hydrox/Mg Hydrox/Simethicone (Maalox Max Susp) 15 ml Q4H PRN PO 05/20/16 19:15 06/19/16 19:14 Polyethylene (Miralax Powder Packet) 17 gm DAILY PRN PO 05/20/16 19:15 06/19/16 19:14 05/30/16 08:36 17 GM Ondansetron HCl (Zofran Inj) 4 mg Q6H PRN IV 05/20/16 19:15 06/19/16 19:14 Heparin Sodium (Porcine) (Heparin Sq 5000 Unit/0.5ml) 5,000 unit Q12H SQ 05/20/16 22:00 06/19/16 21:59 06/01/16 10:00 5,000 UNIT Enteral Nutritional Formula (Boost) 1 can TID PO 05/20/16 21:00 06/19/16 20:59 06/01/16 14:51 1 CAN Aspirin (Ecotrin Tab) 81 mg QAM PO 05/21/16 08:00 06/20/16 08:59 06/01/16 07:44 81 MG Docusate Sodium (coLACE CAP) 100 mg BID PO 05/20/16 21:00 06/19/16 20:59 06/01/16 07:43 100 MG Levothyroxine Sodium (Synthroid Tab) 50 mcg DAILYBB PO 05/21/16 06:30 06/20/16 06:59 06/01/16 05:49 50 MCG Mirtazapine (Remeron Tab) 15 mg HS PO 05/20/16 21:00 06/19/16 20:59 05/31/16 20:34 15 MG Simvastatin (Zocor Tab) 10 mg HS PO 05/20/16 21:00 06/19/16 20:59 05/31/16 20:34 10 MG Artificial Tears (Artificial Tears) 1 drops QID OP 05/20/16 21:00 06/19/16 20:59 05/31/16 20:32 1 DROPS Albuterol/ Ipratropium (Combivent Respimat Inh) 1 puffs QID INH 05/22/16 16:00 06/21/16 15:59 06/01/16 12:17 1 PUFFS Albuterol/ Ipratropium (Duoneb) 3 ml Q4H PRN INH 05/22/16 12:45 06/21/16 12:44 Prednisone (PredniSONE TAB) 30 mg DAILY PO 05/26/16 08:00 06/25/16 07:59 06/01/16 07:45 30 MG Nystatin 5 ml 5 ml QID PO 05/27/16 17:00 06/06/16 16:59 06/01/16 12:17 5 ML Fluconazole/ Sodium Chloride/ Prmx (Diflucan IV/ Premixed Nss) 50 ml @ 100 mls/hr DAILY@1400 IV 05/28/16 14:00 06/07/16 13:59 06/01/16 14:51 100 MLS/HR Olmesartan (Benicar Tab) 10 mg BID PO 05/28/16 20:00 06/27/16 19:59 06/01/16 07:42 10 MG Rifampin (Rifadin Cap) 300 mg BID PO 05/31/16 20:00 06/07/16 19:59 06/01/16 07:45 300 MG Ethambutol HCl (Myambutol Tab) 400 mg BID PO 05/31/16 20:00 06/30/16 19:59 06/01/16 07:44 400 MG Azithromycin (Zithromax Tab) 500 mg QAM PO 06/01/16 08:00 06/07/16 07:59 06/01/16 12:16 500 MG Objective Vital Signs Date Time Temp Pulse Resp B/P Pulse Ox O2 Delivery O2 Flow Rate FiO2 06/01/16 11:05 100 Nasal Cannula 2.0 06/01/16 06:58 36.4 117 22 100/63 100 2.0 06/01/16 00:02 Nasal Cannula 2.0 05/31/16 23:00 36.4 81 18 149/84 99 Nasal Cannula 2.5 05/31/16 20:02 Nasal Cannula 2.0 05/31/16 16:00 Nasal Cannula 2.0 Physical Exam General Appearance: no apparent distress, + cachetic Eyes: normal inspection, EOMI, sclerae normal ENT: hearing grossly normal, + pertinent finding (less thrush today, almost none) Neck: supple, no adenopathy, no JVD, trachea midline Respiratory/Chest: chest non-tender, no respiratory distress, no accessory muscle use, + decreased breath sounds Cardiovascular: regular rate, rhythm, no edema, no gallop, no JVD, no murmur Abdomen: normal bowel sounds, non tender, soft, no organomegaly Extremities: normal range of motion, non-tender, normal inspection, no pedal edema, no calf tenderness Neurologic/Psychiatric: transitions manager II-XII nml as tested, alert, normal mood/affect, oriented x 3, + motor weakness (generalized) Skin: normal color, warm/dry, no rash Lymphatic: no adenopathy Laboratory Results Last 24 Hours Test 06/01/16 05:20 White Blood Count 20.28 K/uL Red Blood Count 3.78 M/uL Hemoglobin 11.9 g/dL Hematocrit 34.9 % Mean Corpuscular Volume 92.3 fL Mean Corpuscular Hemoglobin 31.5 pg Mean Corpuscular Hemoglobin Concent 34.1 g/dl RDW Standard Deviation 57.5 fL RDW Coefficient of Variation 17.4 % Platelet Count 430 K/uL Mean Platelet Volume 9.4 fL Sodium Level 134 mmol/L Potassium Level 4.6 mmol/L Chloride Level 96 mmol/L Carbon Dioxide Level 24 mmol/L Anion Gap 14.0 mmol/L Blood Urea Nitrogen 22 mg/dl Creatinine 0.90 mg/dl Est Creatinine Clear Calc Drug Dose 55.0 ml/min Estimated GFR () 95.1 Estimated GFR (Non- 82.1 BUN/Creatinine Ratio 24.7 Random Glucose 134 mg/dl Calcium Level 9.1 mg/dl Assessment and Plan 75-year-old male with an unfortunate history of progressive interstitial lung disease presents to the emergency department with acute on chronic respiratory failure S/P bronchoscopy 05/24 that was uneventful Acute on chronic respiratory failure with hypoxia, multifactorial; severe interstitial lung disease, cavitary lung lesions versus blebs, 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 started tapering dose of prednisone by Dr. Morton stop Levaquin 05/31: bronchial washings from 05/21 returned as MAC discussed with Dr. Duong, will treat with Ethambutol, Azithromycin and Rifampin tolerating well today, follow for liver toxicity remove air born precautions, family can visit no evidence that this is tuberculosis Oral thrush: continue Nystatin S/S QID continue Diflucan 100mg IV, will change to PO prior to discharge would complete 14 days total nearly gone today, change to PO Diflucan tomorrow Hypertension continue Olmesartan at 10 mg twice daily continue Hydralazine 5 mg IV q 6 hr PRN Hypothyroidism Continue Synthroid 50 g daily Restless leg syndrome Continue Remeron 15 mg at night Weight loss possibly due d/t chronic disease Hyperlipidemia Continue simvastatin 10 mg daily DVT prophylaxis -Heparin 5000 units subcutaneous BID -TEDS, SCDs CODE STATUS -CPR/cardioversion ok -NO INTUBATION Plan: treat with antibiotics, d/c isolation, assess strength and possible needs for rehab
[2016-06-01 16:36] VITALS: BP 112/72; PULSE 82; TEMP 36; O2SAT 100
[2016-06-01] MEDS: MIRTAZAPINE TAB 15 MG TAB PO SCH (20:06)
[2016-06-01] MEDS: SIMVASTATIN 10 MG TAB PO SCH (20:07)
[2016-06-01 23:14] VITALS: BP 116/59; PULSE 66; TEMP 36.3; O2SAT 95
[2016-06-02] MEDS: LEVOTHYROXINE 50 MCG TAB PO SCH (06:08)
[2016-06-02 06:10] VITALS: BP 129/66; PULSE 79; TEMP 36.5; O2SAT 92
[2016-06-02 06:16] LABS: BUN/CREATININE RATIO 36.1 (10-20); CALCIUM 8.5 mg/dl (8.5-10.1); CREATININE 0.68 mg/dl (0.60-1.40); POTASSIUM 4.3 mmol/L (3.5-5.1)
[2016-06-02 07:45] VITALS: BP 137/82; PULSE 75; TEMP 36.3; O2SAT 97
[2016-06-02] MEDS: OLMESARTAN MEDOXOMIL 20 MG TAB PO SCH ×2 (07:57→19:52)
[2016-06-02] MEDS: ETHAMBUTOL HCL 400 MG TAB PO SCH ×2 (07:57→19:53)
[2016-06-02] MEDS: ASPIRIN 81 MG ECTAB PO SCH (07:58)
[2016-06-02] MEDS: NYSTATIN SUSP 500,000 U/5 ML UDC PO SCH ×4 (07:58→19:51)
[2016-06-02] MEDS: DOCUSATE SODIUM 100 MG CAP PO SCH ×2 (07:58→19:51)
--- NOTE | 2016-06-02 07:59 | DIAGNOSTIC IMAGING REPORT ---
CHEST ONE VIEW PORTABLE CLINICAL HISTORY: Respiratory failure. COMPARISON STUDY: Chest CT May 20, 2016. FINDINGS: There has been interval development of a small left apical pneumothorax and subcutaneous emphysema within the left chest wall since chest CT of May 20, 2016. Left upper lung airspace opacity persists. There is diffuse interstitial thickening with bilateral airspace opacities which have slightly progressed. Cardiomediastinal silhouette is stable. There is no right pneumothorax. IMPRESSION: 1. Interval development of a small left apical pneumothorax and subcutaneous emphysema of the left chest wall since exam of May 20, 2016. Discussed with Dr. Lee at time of dictation. 2. Mild progression of bilateral airspace opacities which suggest an infectious process superimposed upon interstitial lung disease. Electronically signed by: Gómez Austin M.D. 06/02/2016 7:57 AM Dictated Date/Time: 06/02/2016 7:24 AM
[2016-06-02] MEDS: AZITHROMYCIN 250 MG TAB PO SCH (08:01)
[2016-06-02] MEDS: RIFAMPIN 300 MG CAP PO SCH ×2 (08:01→19:52)
[2016-06-02] MEDS: ARTIFICIAL TEARS OP SOLN OP SCH ×8 (08:01→19:53)
[2016-06-02] MEDS: IPRATROPIUM BROMIDE/ALBUTEROL respimat INH INH SCH ×4 (08:02→19:50)
[2016-06-02] MEDS: BOOST VANILLA PO SCH ×6 (08:04→19:49)
--- NOTE | 2016-06-02 10:21 | DIAGNOSTIC IMAGING REPORT ---
CT OF THE CHEST WITHOUT IV CONTRAST CLINICAL HISTORY: Pneumothorax, blebs, emphysema, MAC infection. COMPARISON STUDY: Chest CT May 20, 2016 and chest radiograph performed earlier today. CT DOSE: 199.77 mGy.cm TECHNIQUE: Axial images of the chest were obtained without IV contrast. Images were reviewed in the axial, sagittal, and coronal planes. IV contrast was not administered for this examination. FINDINGS: There has been significant interval increase in moderate pneumomediastinum since exam of May 20, 2016. Extensive soft tissue gas and the neck is noted. There has been interval development of a small left pneumothorax since chest CT of May 20, 2016. This is unchanged since chest radiograph from earlier today. Multiple cavitary airspace opacities are again noted. These are similar to prior chest CT of May 20, 2016. These cavitary opacities are superimposed upon interstitial lung disease with bronchiectasis and cystic change/fibrotic change with a lower lobe predominance. There is no right pneumothorax. Mild cardiomegaly is unchanged. The central airways are patent. A cyst within the upper pole the left kidney is incidentally noted. There is moderate distention of the stomach. There are bilateral renal calculi. There is an old T11 severe compression fracture. IMPRESSION: 1. Interval development of a small left pneumothorax since CT of May 20, 2016. Potential etiologies include a ruptured bleb, development of a bronchopleural fistula or extension of pneumomediastinum. 2. Significant interval increase in moderate pneumomediastinum which extends into the neck since chest CT of May 20, 2016. The etiology for the pneumomediastinum is unclear. 3. Severe interstitial lung disease with superimposed cavitary opacities. While nonspecific, the findings would be consistent with the provided history of MAC infection. However, tuberculosis could have a similar imaging appearance. Discussed with Dr. Lee at time of dictation. 4. Mild to moderate distention of the stomach. Electronically signed by: Gómez Austin M.D. 06/02/2016 10:18 AM Dictated Date/Time: 06/02/2016 9:57 AM
[2016-06-02] MEDS ORDERED: NURSING VERBAL MED ORDER ONE (10:30)
[2016-06-02] MEDS: HEPARIN SOD 5000 UNIT/0.5 ML CARP SQ SCH (10:31)
[2016-06-02] MEDS: FLUCONAZOLE / NSS 100 MG in PREMIXED NSS 50 ML IV SCH (14:06)
[2016-06-02] MEDS: TRAMADOL HCL 50 MG TAB PO PRN (15:24)
--- NOTE | 2016-06-02 16:04 | Progress Note ---
Subjective Date of Service: Jun 02, 2016. Subjective Pt evaluation today including: conversation w/ patient, conversation w/ family (called Marline), physical exam, lab review, review of studies, conversation w / home planning consultant salesperson, review of inpatient medication list Pain: chest pain this AM and again in afternoon PO Intake: adequate Voiding: no voiding problems patient with left sided pneumothorax this AM on chest x-ray, had left sided chest pain discussed with Dr. Velasquez CT chest shows left pneumothorax, small and increased pneumomediastinum discussed at length with Dr. Velasquez, recommends 100% oxygen and follow up CXR would be hesitant to insert pigtail because would likely not come out, would need a valve this is a bad prognostic sign for the patient discussed at length with patient, he understands the situation tried to update , called twice Problem List Medical Problems: (1) Change in mental status Status: Acute (2) Pneumonia Status: Acute (3) Weakness Status: Acute Review of Systems Constitutional: + fatigue, + weakness Respiratory: + cough, + dyspnea on exertion Cardiac: + chest pain Neurologic: + weakness All Other Systems: Reviewed and Negative Medications Current Inpatient Medications Medications (Trade) Dose Ordered Sig/Zayda Route Start Time Stop Time Status Last Admin Dose Admin Hydralazine HCl (HydrALAZINE INJ) 5 mg Q6H PRN IV. 05/20/16 19:15 06/19/16 19:14 Acetaminophen (Tylenol Tab) 650 mg Q4H PRN PO 05/20/16 19:15 06/19/16 19:14 06/02/16 06:55 650 MG Al Hydrox/Mg Hydrox/Simethicone (Maalox Max Susp) 15 ml Q4H PRN PO 05/20/16 19:15 06/19/16 19:14 Polyethylene (Miralax Powder Packet) 17 gm DAILY PRN PO 05/20/16 19:15 06/19/16 19:14 05/30/16 08:36 17 GM Ondansetron HCl (Zofran Inj) 4 mg Q6H PRN IV 05/20/16 19:15 06/19/16 19:14 Enteral Nutritional Formula (Boost) 1 can TID PO 05/20/16 21:00 06/19/16 20:59 06/02/16 14:13 1 CAN Aspirin (Ecotrin Tab) 81 mg QAM PO 05/21/16 08:00 06/20/16 08:59 06/02/16 07:58 81 MG Docusate Sodium (coLACE CAP) 100 mg BID PO 05/20/16 21:00 06/19/16 20:59 06/01/16 07:43 100 MG Levothyroxine Sodium (Synthroid Tab) 50 mcg DAILYBB PO 05/21/16 06:30 06/20/16 06:59 06/02/16 06:08 50 MCG Mirtazapine (Remeron Tab) 15 mg HS PO 05/20/16 21:00 06/19/16 20:59 06/01/16 20:06 15 MG Simvastatin (Zocor Tab) 10 mg HS PO 05/20/16 21:00 06/19/16 20:59 06/01/16 20:07 10 MG Artificial Tears (Artificial Tears) 1 drops QID OP 05/20/16 21:00 06/19/16 20:59 06/02/16 08:01 1 DROPS Albuterol/ Ipratropium (Combivent Respimat Inh) 1 puffs QID INH 05/22/16 16:00 06/21/16 15:59 06/02/16 12:36 1 PUFFS Albuterol/ Ipratropium (Duoneb) 3 ml Q4H PRN INH 05/22/16 12:45 06/21/16 12:44 Prednisone (PredniSONE TAB) 30 mg DAILY PO 05/26/16 08:00 06/25/16 07:59 06/02/16 07:57 30 MG Nystatin 5 ml 5 ml QID PO 05/27/16 17:00 06/06/16 16:59 06/02/16 12:36 5 ML Fluconazole/ Sodium Chloride/ Prmx (Diflucan IV/ Premixed Nss) 50 ml @ 100 mls/hr DAILY@1400 IV 05/28/16 14:00 06/07/16 13:59 06/02/16 14:06 100 MLS/HR Olmesartan (Benicar Tab) 10 mg BID PO 05/28/16 20:00 06/27/16 19:59 06/02/16 07:57 10 MG Rifampin (Rifadin Cap) 300 mg BID PO 05/31/16 20:00 06/07/16 19:59 06/02/16 08:01 300 MG Ethambutol HCl (Myambutol Tab) 400 mg BID PO 05/31/16 20:00 06/30/16 19:59 06/02/16 07:57 400 MG Azithromycin (Zithromax Tab) 500 mg QAM PO 06/01/16 08:00 06/07/16 07:59 06/02/16 08:01 500 MG Objective Vital Signs Date Time Temp Pulse Resp B/P Pulse Ox O2 Delivery O2 Flow Rate FiO2 06/02/16 08:00 Nasal Cannula 6.0 06/02/16 07:45 36.3 75 18 137/82 97 2.0 06/02/16 06:10 36.5 79 18 129/66 92 Nasal Cannula 2.0 06/02/16 00:00 Nasal Cannula 2.0 06/01/16 23:14 36.3 66 16 116/59 95 06/01/16 20:00 Nasal Cannula 2.0 06/01/16 16:36 36.0 82 18 112/72 100 2.5 06/01/16 16:00 Nasal Cannula 2.0 Physical Exam General Appearance: no apparent distress, + cachetic Eyes: normal inspection, EOMI, sclerae normal ENT: normal ENT inspection, hearing grossly normal, pharynx normal Neck: supple, no adenopathy, no JVD, trachea midline Respiratory/Chest: chest non-tender, no respiratory distress, no accessory muscle use, + decreased breath sounds Cardiovascular: regular rate, rhythm, no edema, no gallop, no JVD, no murmur Abdomen: normal bowel sounds, non tender, soft, no organomegaly Extremities: normal range of motion, non-tender, normal inspection, no pedal edema, no calf tenderness Neurologic/Psychiatric: commercial estimator II-XII nml as tested, no motor/sensory deficits, alert, normal mood/affect, oriented x 3 Skin: normal color, warm/dry, no rash Lymphatic: no adenopathy Laboratory Results Last 24 Hours Test 06/02/16 05:07 Sodium Level 135 mmol/L Potassium Level 4.3 mmol/L Chloride Level 99 mmol/L Carbon Dioxide Level 31 mmol/L Anion Gap 5.0 mmol/L Blood Urea Nitrogen 25 mg/dl Creatinine 0.68 mg/dl Est Creatinine Clear Calc Drug Dose 72.8 ml/min Estimated GFR () 106.8 Estimated GFR (Non- 92.1 BUN/Creatinine Ratio 36.1 Random Glucose 77 mg/dl Calcium Level 8.5 mg/dl Assessment and Plan 75-year-old male with an unfortunate history of progressive interstitial lung disease presents to the emergency department with acute on chronic respiratory failure S/P bronchoscopy 05/24 that was uneventful Acute on chronic respiratory failure with hypoxia, multifactorial; severe interstitial lung disease, cavitary lung lesions with MAC infection worse today, acute chest pain with left sided pneumothorax CT shows small pneumothorax, 1cm, no tube recommended currently increasing pneumomediastinum discussed at length with Dr. Velasquez, reviewed CT with him would recommend just watching, any time of tube would not go well poor prognosis question whether treating MAC even worth it with damage it could cause liver point of treating MAC is to prevent pneumothorax but that already occurred 05/31: bronchial washings from 05/21 returned as MAC discussed with Dr. Duong, will treat with Ethambutol, Azithromycin and Rifampin tolerating well today, follow for liver toxicity remove air born precautions, family can visit no evidence that this is tuberculosis Oral thrush: continue Nystatin S/S QID continue Diflucan 100mg IV, will change to PO prior to discharge would complete 14 days total nearly gone today, continue IV therapy for now Hypertension continue Olmesartan at 10 mg twice daily continue Hydralazine 5 mg IV q 6 hr PRN Hypothyroidism Continue Synthroid 50 g daily Restless leg syndrome Continue Remeron 15 mg at night Weight loss possibly due d/t chronic disease Hyperlipidemia Continue simvastatin 10 mg daily DVT prophylaxis -Heparin 5000 units subcutaneous BID -TEDS, SCDs CODE STATUS -CPR/cardioversion ok -NO INTUBATION Plan: treat with antibiotics, d/c isolation, assess strength and possible needs for rehab updated patient on situation, he understands the poor prognosis
[2016-06-02 16:28] VITALS: PULSE 80; TEMP 36.3; O2SAT 99
[2016-06-02 16:39] VITALS: BP 121/75; PULSE 80; TEMP 36.3; O2SAT 99
[2016-06-02] MEDS: SIMVASTATIN 10 MG TAB PO SCH (19:51)
[2016-06-02] MEDS: MIRTAZAPINE TAB 15 MG TAB PO SCH (19:52)
[2016-06-02 22:59] VITALS: BP 137/71; PULSE 67; TEMP 36.4; O2SAT 100
[2016-06-03] MEDS: LEVOTHYROXINE 50 MCG TAB PO SCH (06:11)
[2016-06-03 07:36] VITALS: BP 137/85; PULSE 83; TEMP 36.5; O2SAT 98
--- NOTE | 2016-06-03 07:52 | PROGRESS NOTE ---
DATE: 06/03/2016 HISTORY OF PRESENT ILLNESS: The patient is very comfortable this morning. When I walked in this morning at 5:30, he was sleeping at about 30 degrees with a respiratory rate of 14. He denies cough or chest pain. He has not had any noticeable subcutaneous emphysema from the pneumomediastinum and small left-sided pneumothorax. He feels quite comfortable. He actually states he feels a bit better than when he did at the time of admission. He states he has been eating fairly well. According to nurses' notes, he had a fairly good night last night. He has been oriented. He did have a complain of some left-sided chest pain at 10:30 yesterday and a chest x-ray showed a small left apical pneumothorax with subcutaneous emphysema as noted on the CT scan. This probably is related to a ruptured bleb. He is tolerating the ethambutol, Zithromax and rifampin without any GI symptoms. PHYSICAL EXAMINATION: VITAL SIGNS: Stable. Oxygen saturations 100% on 5 liters. Blood pressure 137/71, pulse 67 and regular, respiratory rate is 18 and he is afebrile. His I's and O's are 1110 in, 725 out. HEENT: Unremarkable. There is a minimal amount of subcutaneous emphysema, left side of his neck just above the supraclavicular space. Expansion of the thorax is good with deep inspiration. HEART: Regular rate and rhythm. No murmurs are heard. Second heart sound I thought was normal. LUNGS: Reveal some Velcro-type crackles at the lung bases to the mid lung amaya bilaterally. ABDOMEN: Soft, nontender. EXTREMITIES: He has no cyanosis, clubbing or edema. The bronchoscopy specimens and sputum specimens reveal AFB consistent with Mycobacterium avium complex. Notes from Dr. Duong are appreciated. IMPRESSION: 1. Interstitial lung disease. 2. Mycobacterium avium intracellulare, on treatment. 3. Pneumomediastinum with small left-sided pneumothorax. He is asymptomatic at the present time. RECOMMENDATIONS: 1. At this point, I would continue to follow chest x-ray today and on a daily basis for the next several days to make sure the pneumothorax does not worsen. If it would, I would recommend an evaluation by Dr. Guadarrama for consideration for chest tube placement. 2. Continue on his antimicrobial agents. 3. Nutritional evaluation, increase his p.o. intake. I discussed this with him today. 4. Increase activity as much as possible. Otherwise, we will continue with his present medications. I would taper the prednisone down to 20 mg daily and continue to taper that down and hopefully off over the next 6-8 weeks.
[2016-06-03 08:30] VITALS: O2SAT 98
[2016-06-03] MEDS: IPRATROPIUM BROMIDE/ALBUTEROL respimat INH INH SCH ×4 (08:35→20:54)
[2016-06-03] MEDS: ETHAMBUTOL HCL 400 MG TAB PO SCH ×2 (08:37→20:59)
[2016-06-03] MEDS: RIFAMPIN 300 MG CAP PO SCH ×2 (08:37→20:59)
[2016-06-03] MEDS: OLMESARTAN MEDOXOMIL 20 MG TAB PO SCH ×2 (08:40→20:56)
[2016-06-03] MEDS: ASPIRIN 81 MG ECTAB PO SCH (08:40)
[2016-06-03] MEDS: DOCUSATE SODIUM 100 MG CAP PO SCH ×2 (08:41→21:00)
[2016-06-03] MEDS: AZITHROMYCIN 250 MG TAB PO SCH (08:42)
[2016-06-03] MEDS: NYSTATIN SUSP 500,000 U/5 ML UDC PO SCH ×4 (08:43→21:03)
--- NOTE | 2016-06-03 08:43 | DIAGNOSTIC IMAGING REPORT ---
SINGLE VIEW CHEST CLINICAL HISTORY: Follow-up pneumothorax. FINDINGS: An AP, portable, upright chest radiograph is compared to chest x-ray and chest CT performed earlier the same day 06/02/2016. The examination is degraded by portable technique and patient rotation. The heart is top normal in size and there is atherosclerotic calcification of the thoracic aorta. Findings of extensive chronic interstitial lung disease with multifocal bronchiectasis, cystic change, multifocal airspace opacities, and significant pleural thickening at the lung bases are again noted. Foci of superimposed airspace consolidation are seen in the upper lobes and at the right lung base. Small pleural effusions are suspected. A small left apical pneumothorax is unchanged from earlier today. The skeletal structures are osteopenic. The bony thorax appears intact. Degenerative change is noted throughout the thoracic spine. Foci of subcutaneous gas are again seen in the left axillary region. IMPRESSION: 1. A small left apical pneumothorax is unchanged in size from studies performed earlier today. 2. Findings of advanced chronic interstitial lung disease as above. 2. Foci of superimposed airspace consolidation are detailed above. Pleural effusions are again noted. Electronically signed by: Flo Mosqueda M.D. 06/03/2016 8:41 AM Dictated Date/Time: 06/03/2016 8:38 AM
[2016-06-03] MEDS: ARTIFICIAL TEARS OP SOLN OP SCH ×8 (08:45→20:00)
[2016-06-03] MEDS: BOOST VANILLA PO SCH ×6 (09:00→20:54)
--- NOTE | 2016-06-03 12:41 | Hospitalist Progress Note ---
Hospitalist Progress Note Date of Service Jun 03, 2016. (Nayely Sharif PA-C) Subjective Pt evaluation today including: conversation w/ patient, physical exam, chart review, lab review, review of studies, review of inpatient medication list Breathing remains labored while the patient is up moving around. Relieved slightly with rest. Denies fever or chills overnight. Still complaining of left-sided chest pain, however it is better than yesterday. Additional Comments: 6 system review negative. Please see pertinent positives in the history of present illness section. (Nayely Sharif PA-C) Objective Vital Signs Date Time Temp Pulse Resp B/P Pulse Ox O2 Delivery O2 Flow Rate FiO2 06/03/16 08:30 98 Nasal Cannula 6.0 06/03/16 07:36 36.5 83 18 137/85 98 6.0 06/02/16 23:30 Nasal Cannula 6.0 06/02/16 22:59 36.4 67 17 137/71 100 Nasal Cannula 5.0 06/02/16 20:15 Nasal Cannula 6.0 06/02/16 16:39 36.3 80 20 121/75 99 Nasal Cannula 6.0 06/02/16 15:45 Nasal Cannula 6.0 (Nayely Sharif PA-C) Physical Exam General Appearance: + mild distress (mild respiratory distress) Eyes: EOMI ENT: + pertinent finding (oral mucosa dry. Very slight white plaque noted on the tongue.) Neck: no JVD Respiratory/Chest: + pertinent finding (rhonchorous breath sounds bilaterally. No wheezing auscultated.) Cardiovascular: regular rate, rhythm Abdomen: normal bowel sounds, non tender, soft Extremities: non-tender, no pedal edema Neurologic/Psychiatric: oriented x 3 (appears fatigued) Skin: warm/dry (Nayely Sharif PA-C) Assessment and Plan 75-year-old male with an unfortunate history of progressive interstitial lung disease presents to the emergency department with acute on chronic respiratory failure S/P bronchoscopy 05/24 that was uneventful Acute on chronic respiratory failure with hypoxia, multifactorial; severe interstitial lung disease, cavitary lung lesions with MAC infection CT shows small pneumothorax, 1cm, no tube recommended currently Pulm following-->no tube recommended. Follow daily CXRs question whether treating MAC even worth it with damage it could cause liver point of treating MAC is to prevent pneumothorax but that already occurred 05/31: bronchial washings from 05/21 returned as MAC discussed with Dr. Duong, will treat with Ethambutol, Azithromycin and Rifampin tolerating well today, follow for liver toxicity remove air born precautions, family can visit no evidence that this is tuberculosis Check liver profile in AM Oral thrush: continue Nystatin S/S QID Continue fluconazole 100 mg IV daily Day 6 of 14 Hypertension continue Olmesartan at 10 mg twice daily continue Hydralazine 5 mg IV q 6 hr PRN Hypothyroidism Continue Synthroid 50 g daily Restless leg syndrome Continue Remeron 15 mg at night Weight loss possibly due to infection on top of severe pulm disease Hyperlipidemia Continue simvastatin 10 mg daily DVT prophylaxis -Heparin 5000 units subcutaneous BID -TEDS, SCDs CODE STATUS -CPR/cardioversion ok -NO INTUBATION Plan: treat with antibiotics, d/c isolation, assess strength and possible needs for rehab updated patient on situation, he understands the poor prognosis (Nayely Sharif, PANeoC) Attending Attestation: Pt seen/examined, chart reviewed, care plan d/w JUSTUS Sharif. I agree w/ the hinojosa components of her documentation. Pt w/ c/o mild mid-sternal chest pain/pleuritic pain but "better" than yesterday. Remains with dyspnea. Reports 60 pound weight loss over the last year. Numerous questions by patient about his condition. VSS no fever gen - cacechtic w/ muscle wasting face, arms, etc mouth - thrush nearly resolved neck - no JVD heart - RRR lungs - diffuse dry rales nearly all posterior lung segments with rhonchi b/l abd - soft ext - no edema A/P: 1. chronic resp failure 2nd to ILD 2. acute resp failure 2nd to DENAE infection 3. severe protein calorie malnutrition 4. failure to thrive 5. PT, OT both recommending rehab 6. left sided pneumothorax and pneumomediastinum cont triple abx for DENAE cont O2 wean prednisone to 20mg daily in AM cont supplements (boost, etc) repeat cxr in AM for #6 - conservative management at this time ex-, OLIVIA, updated extensively by phone Stephon Sanchez MD (Stephon Sanchez MD)
[2016-06-03 13:48] VITALS: PULSE 90; O2SAT 95
[2016-06-03] MEDS: FLUCONAZOLE / NSS 100 MG in PREMIXED NSS 50 ML IV SCH (14:32)
[2016-06-03 15:38] VITALS: BP 117/73; PULSE 80; TEMP 36.5; O2SAT 99
--- NOTE | 2016-06-03 20:00 | Infectious Disease Progress Nt ---
Progress Note Date of Service Jun 03, 2016. Subjective Pt evaluation today including: conversation w/ patient, physical exam, chart review, lab review, review of studies, conversation w/ beauty sales consultant, review of inpatient medication list cough slightly better, still weak and fatigued. Tolerating anti DENAE antibiotics thus far without apparent difficulty. No fever. All Other Systems: Reviewed and Negative Medications He has been more Current Inpatient Medications Medications (Trade) Dose Ordered Sig/Zayda Route Start Time Stop Time Status Last Admin Dose Admin Hydralazine HCl (HydrALAZINE INJ) 5 mg Q6H PRN IV. 05/20/16 19:15 06/19/16 19:14 Acetaminophen (Tylenol Tab) 650 mg Q4H PRN PO 05/20/16 19:15 06/19/16 19:14 06/02/16 06:55 650 MG Al Hydrox/Mg Hydrox/Simethicone (Maalox Max Susp) 15 ml Q4H PRN PO 05/20/16 19:15 06/19/16 19:14 Polyethylene (Miralax Powder Packet) 17 gm DAILY PRN PO 05/20/16 19:15 06/19/16 19:14 05/30/16 08:36 17 GM Ondansetron HCl (Zofran Inj) 4 mg Q6H PRN IV 05/20/16 19:15 06/19/16 19:14 Enteral Nutritional Formula (Boost) 1 can TID PO 05/20/16 21:00 06/19/16 20:59 06/03/16 14:29 1 CAN Aspirin (Ecotrin Tab) 81 mg QAM PO 05/21/16 08:00 06/20/16 08:59 06/03/16 08:40 81 MG Docusate Sodium (coLACE CAP) 100 mg BID PO 05/20/16 21:00 06/19/16 20:59 06/03/16 08:41 100 MG Levothyroxine Sodium (Synthroid Tab) 50 mcg DAILYBB PO 05/21/16 06:30 06/20/16 06:59 06/03/16 06:11 50 MCG Mirtazapine (Remeron Tab) 15 mg HS PO 05/20/16 21:00 06/19/16 20:59 06/02/16 19:52 15 MG Simvastatin (Zocor Tab) 10 mg HS PO 05/20/16 21:00 06/19/16 20:59 06/02/16 19:51 10 MG Artificial Tears (Artificial Tears) 1 drops QID OP 05/20/16 21:00 06/19/16 20:59 06/03/16 18:43 1 DROPS Albuterol/ Ipratropium (Combivent Respimat Inh) 1 puffs QID INH 05/22/16 16:00 06/21/16 15:59 06/03/16 18:43 1 PUFFS Albuterol/ Ipratropium (Duoneb) 3 ml Q4H PRN INH 05/22/16 12:45 06/21/16 12:44 Nystatin (Mycostatin Susp) 5 ml QID PO 05/27/16 17:00 06/06/16 16:59 06/03/16 18:43 5 ML Olmesartan (Benicar Tab) 10 mg BID PO 05/28/16 20:00 06/27/16 19:59 06/03/16 08:40 10 MG Rifampin (Rifadin Cap) 300 mg BID PO 05/31/16 20:00 06/07/16 19:59 06/03/16 08:37 300 MG Ethambutol HCl (Myambutol Tab) 400 mg BID PO 05/31/16 20:00 06/30/16 19:59 06/03/16 08:37 400 MG Azithromycin (Zithromax Tab) 500 mg QAM PO 06/01/16 08:00 06/07/16 07:59 06/03/16 08:42 500 MG Tramadol HCl (Ultram Tab) 50 mg Q4H PRN PO 06/02/16 15:15 07/02/16 15:14 06/02/16 15:24 50 MG Fluconazole (Diflucan Tab) 100 mg QAM PO 06/04/16 08:00 06/07/16 07:59 Prednisone (PredniSONE TAB) 20 mg DAILY PO 06/04/16 08:00 07/04/16 07:59 Multivitamins/ Minerals (Multivitamin W/ Minerals Tab) 1 tab QAM PO 06/04/16 08:00 07/04/16 07:59 Objective Vital Signs Date Time Temp Pulse Resp B/P Pulse Ox O2 Delivery O2 Flow Rate FiO2 06/03/16 15:38 36.5 80 20 117/73 99 Nasal Cannula 6.0 06/03/16 13:48 90 95 06/03/16 08:30 98 Nasal Cannula 6.0 06/03/16 07:36 36.5 83 18 137/85 98 6.0 06/02/16 23:30 Nasal Cannula 6.0 06/02/16 22:59 36.4 67 17 137/71 100 Nasal Cannula 5.0 06/02/16 20:15 Nasal Cannula 6.0 Physical Exam General Appearance: WD/WN, no apparent distress Eyes: normal inspection, sclerae normal ENT: normal ENT inspection, pharynx normal Neck: supple, no adenopathy, trachea midline Respiratory/Chest: chest non-tender, no respiratory distress, + rhonchi Cardiovascular: regular rate, rhythm, no gallop, no murmur Abdomen: normal bowel sounds, non tender, soft, no organomegaly Extremities: non-tender, no calf tenderness Neurologic/Psychiatric: alert, oriented x 3 Skin: normal color, no rash Lymphatic: no adenopathy Assessment and Plan Progressive pulmonary process with cavitation with positive AFB in patient with chronic interstitial pneumonitis and bronchiectasis now with positive DNA for DENAE. patient be continued on therapy for DENAE, appears to be tolerating thus far. Will need to monitor liver enzymes periodically while on current regimen. Will discuss with all involved.
[2016-06-03] MEDS: MIRTAZAPINE TAB 15 MG TAB PO SCH (21:00)
[2016-06-03] MEDS: SIMVASTATIN 10 MG TAB PO SCH (21:01)
[2016-06-04 00:16] VITALS: BP 144/79; PULSE 72; TEMP 36.7; O2SAT 97
[2016-06-04] MEDS: LEVOTHYROXINE 50 MCG TAB PO SCH (05:37)
[2016-06-04 05:57] LABS: BASO % 0.1 %; BASO ABS # 0.01 K/uL (0-0.2); COMPLETE YES; EOS % 1.1 %; HEMATOCRIT 33.9 % (42-52); IG% 0.4 %; LYMPH % 9.8 %; LYMPH ABS # 1.26 K/uL (1.2-3.4); MEAN CELL VOLUME 92.6 fL (80-100); MEAN CORPUSCULAR HEMOGLOBIN 31.7 pg (25-34); MEAN CORPUSCULAR HGB CONC 34.2 g/dl (32-36); MEAN PLATELET VOLUME 9.1 fL (7.4-10.4); MONO % 5.1 %; NEUT % 83.5 %; PLATELET COUNT 377 K/uL (130-400); RED BLOOD COUNT 3.66 M/uL (4.7-6.1); WHITE BLOOD COUNT 12.82 K/uL (4.8-10.8)
[2016-06-04 06:35] LABS: BUN/CREATININE RATIO 29.9 (10-20); CALCIUM 9.1 mg/dl (8.5-10.1); CREATININE 0.63 mg/dl (0.60-1.40); POTASSIUM 4.5 mmol/L (3.5-5.1)
[2016-06-04 06:37] LABS: ALB/GLOB RATIO 0.4 (0.9-2)
[2016-06-04 07:07] VITALS: BP 133/86; PULSE 96; TEMP 36.6; O2SAT 96
--- NOTE | 2016-06-04 07:54 | DIAGNOSTIC IMAGING REPORT ---
CHEST ONE VIEW PORTABLE CLINICAL HISTORY: Follow up left pneumothorax. COMPARISON STUDY: Chest radiograph June 03, 2016. FINDINGS: A small left apical pneumothorax has decreased in size since prior exam. Diffuse interstitial thickening with bilateral opacities persist. Cardiomediastinal silhouette is stable. There is no right pneumothorax. IMPRESSION: 1. Decrease in size of a small left apical pneumothorax. 2. No change in diffuse interstitial thickening with bilateral opacities. The findings could reflect pneumonia, pulmonary edema or ARDS superimposed upon interstitial lung disease. Electronically signed by: Gómez Austin M.D. 06/04/2016 7:52 AM Dictated Date/Time: 06/04/2016 7:50 AM
[2016-06-04] MEDS: BOOST VANILLA PO SCH ×6 (08:50→19:55)
[2016-06-04] MEDS: RIFAMPIN 300 MG CAP PO SCH ×2 (08:56→19:54)
[2016-06-04] MEDS: NYSTATIN SUSP 500,000 U/5 ML UDC PO SCH ×4 (08:57→19:54)
[2016-06-04] MEDS: AZITHROMYCIN 250 MG TAB PO SCH (08:57)
[2016-06-04] MEDS: ASPIRIN 81 MG ECTAB PO SCH (08:57)
[2016-06-04] MEDS: DOCUSATE SODIUM 100 MG CAP PO SCH ×2 (08:57→19:55)
[2016-06-04] MEDS: ETHAMBUTOL HCL 400 MG TAB PO SCH ×2 (08:57→19:54)
[2016-06-04] MEDS: OLMESARTAN MEDOXOMIL 20 MG TAB PO SCH ×2 (08:57→19:56)
[2016-06-04] MEDS: ARTIFICIAL TEARS OP SOLN OP SCH ×8 (08:58→19:53)
[2016-06-04] MEDS: IPRATROPIUM BROMIDE/ALBUTEROL respimat INH INH SCH ×4 (08:58→19:53)
[2016-06-04] MEDS: CEROVITE ADV FORMULA TAB PO SCH (09:00)
[2016-06-04] MEDS: FLUCONAZOLE 100 MG TAB PO SCH (09:00)
[2016-06-04] MEDS: TRAMADOL HCL 50 MG TAB PO PRN (11:01)
--- NOTE | 2016-06-04 11:44 | PROGRESS NOTE ---
DATE: 06/04/2016 DATE: 06/04/2016. PROBLEM LIST: Includes: 1. Interstitial lung disease. 2. Mycobacterium avium-intracellulare. 3. Pneumomediastinum. SUBJECTIVE: The patient was evaluated this morning. Today he is doing about the same. He states that he still has some cough and shortness of breath but overall thinks that it is better than it has been. He states he does get some occasional chest discomfort. He states he does not have it now. He cannot really elaborate any more on the nature of the pain or when it happens. In regards to the cough he states he still has coughing, but is not bringing up as much mucus. He is unsure of the color of the mucus. He denies any difficulty swallowing, has not been choking on his food at all, he swallow. Denies any GI symptoms. He has not had any nausea or vomiting. He has not had any abdominal pain. He states that his bowels are moving okay. He states they are a little bit slower than they normally are at home, but they still seem to be moving okay. He is not having any difficulty voiding. He has not had any swelling in his extremities. He does seem to be tolerating the triple regimen of ethambutol, Zithromax and rifampin without any side effects at this time. OBJECTIVE: GENERAL: The patient is a 75-year-old very thin male lying in bed. Does not appear in any acute distress. He is alert and oriented x3. Mood is good. Affect is good. VITAL SIGNS: Temp 36.6, pulse 96, respirations 16, blood pressure is 133/86, pulse ox is 97% on 5 liters. HEAD, EYES, EARS, NOSE, AND THROAT: Normocephalic, atraumatic. Pupils equal, round and reactive to light and accommodation. Extraocular movements are intact. Gananda moist gingival and buccal mucosa. NECK: Supple. No mass. No adenopathy. No bruit. CHEST: Diminished. He does have a few expiratory wheeze. No rales or rhonchi noted. Does have some crackles at the lung base. CARDIOVASCULAR: Regular rate and rhythm. No murmurs, gallops or rubs noted. ABDOMEN: Bowel sounds are present. Abdomen soft, nontender. No guarding, rigidity or organomegaly. EXTREMITIES: No erythema or edema. LABORATORY DATA: Chest x-ray showed a decrease in the size of the small left apical pneumothorax measured approximately 4.5 mm today. It had been up around 13 mm previously. IMPRESSION: 1. A 75-year-old male with history of interstitial lung disease, came in with exacerbation. He was found to have AFB positive sputum culture as well as AFB positive bronch washings. It is felt that the patient has mycobacterium avium-intracellulare and is currently on triple drug regimen per Dr. Duong of infectious disease. He is on rifampin, Zithromax and ethambutol. He does seem to be tolerating it well at this time. Continue current triple regimen. In this regards to his interstitial lung disease appears to be relatively stable, just from what I can see appears to be somewhat moderate to more advanced. Continue his current pulmonary regimen at this time as well. 2. Small left pneumothorax. This is getting smaller. He has decreased in size. At this point, I think we can just continue to monitor. Chest x-ray will be done tomorrow to continue to follow it. At this point, I do not think we need to contact Dr. Guadarrama yet but that consideration is still on the table. Otherwise will continue to follow patient during hospitalization.
--- NOTE | 2016-06-04 12:07 | DIAGNOSTIC IMAGING REPORT ---
CHEST ONE VIEW PORTABLE CLINICAL HISTORY: L pneumothorax COMPARISON STUDY: 06/04/2016 7:37 AM FINDINGS: Slight increase in volume of a small left apical pneumothorax. Maximum pleural separation is now approximately 7 to 8 mm. All proximal findings previously described are stable. IMPRESSION: Slight increase in volume of a small left apical pneumothorax. Study is otherwise unchanged. Electronically signed by: Jr Foley M.D. 06/04/2016 12:05 PM Dictated Date/Time: 06/04/2016 12:04 PM
--- NOTE | 2016-06-04 13:59 | Hospitalist Progress Note ---
Hospitalist Progress Note Date of Service Jun 04, 2016. (Nayely Sharif PA-C) Subjective Pt evaluation today including: conversation w/ patient, physical exam, chart review, lab review, review of studies, conversation w/ field consultant, review of inpatient medication list Patient is feeling that his breathing is fairly labored today. Nonproductive cough noted. Chest pain is okay. No fever or chills. Additional Comments: 6 system review negative. Please see pertinent positives in the history of present illness section. (Nayely Sharif PA-C) Objective Vital Signs Date Time Temp Pulse Resp B/P Pulse Ox O2 Delivery O2 Flow Rate FiO2 06/04/16 08:55 Nasal Cannula 2.0 06/04/16 07:07 36.6 96 16 133/86 96 6.0 06/04/16 00:16 36.7 72 20 144/79 97 Nasal Cannula 5.0 06/04/16 00:00 Nasal Cannula 2.0 06/03/16 16:00 Nasal Cannula 6.0 06/03/16 15:38 36.5 80 20 117/73 99 Nasal Cannula 6.0 06/03/16 13:48 90 95 (Nayely Sharif PA-C) Physical Exam General Appearance: + moderate distress, + cachetic ENT: + pertinent finding (oral mucosa dry. No aged noted.) Neck: no JVD Respiratory/Chest: + pertinent finding (coarse breath sounds and rhonchorous breath sounds diffusely particularly at the bases. No wheezing auscultated.) Cardiovascular: + pertinent finding (occasionally irregular. No murmur auscultated.) Abdomen: normal bowel sounds, non tender, soft Extremities: non-tender, no pedal edema Neurologic/Psychiatric: no motor/sensory deficits, oriented x 3, + pertinent finding (appears fatigued today.) Skin: warm/dry (Nayely Sharif PA-C) Laboratory Results 06/04/16 05:15 Red Blood Count 3.66, Mean Corpuscular Volume 92.6, Mean Corpuscular Hemoglobin 31.7, Mean Corpuscular Hemoglobin Concent 34.2, Mean Platelet Volume 9.1, Neutrophils (%) (Auto) 83.5, Lymphocytes (%) (Auto) 9.8, Monocytes (%) (Auto) 5.1, Eosinophils (%) (Auto) 1.1, Basophils (%) (Auto) 0.1, Neutrophils # (Auto) 10.71, Lymphocytes # (Auto) 1.26, Monocytes # (Auto) 0.65, Eosinophils # (Auto) 0.14, Basophils # (Auto) 0.01 06/04/16 05:15 Test 06/04/16 05:15 White Blood Count 12.82 K/uL (4.8-10.8) Red Blood Count 3.66 M/uL (4.7-6.1) Hemoglobin 11.6 g/dL (14.0-18.0) Hematocrit 33.9 % (42-52) Mean Corpuscular Volume 92.6 fL (80-100) Mean Corpuscular Hemoglobin 31.7 pg (25-34) Mean Corpuscular Hemoglobin Concent 34.2 g/dl (32-36) Platelet Count 377 K/uL (130-400) Mean Platelet Volume 9.1 fL (7.4-10.4) Neutrophils (%) (Auto) 83.5 % Lymphocytes (%) (Auto) 9.8 % Monocytes (%) (Auto) 5.1 % Eosinophils (%) (Auto) 1.1 % Basophils (%) (Auto) 0.1 % Neutrophils # (Auto) 10.71 K/uL (1.4-6.5) Lymphocytes # (Auto) 1.26 K/uL (1.2-3.4) Monocytes # (Auto) 0.65 K/uL (0.11-0.59) Eosinophils # (Auto) 0.14 K/uL (0-0.5) Basophils # (Auto) 0.01 K/uL (0-0.2) RDW Standard Deviation 58.2 fL (36.4-46.3) RDW Coefficient of Variation 17.3 % (11.5-14.5) Immature Granulocyte % (Auto) 0.4 % Immature Granulocyte # (Auto) 0.05 K/uL (0.00-0.02) Anion Gap 6.0 mmol/L (3-11) Est Creatinine Clear Calc Drug Dose 78.6 ml/min Estimated GFR () 110.2 Estimated GFR (Non- 95.1 BUN/Creatinine Ratio 29.9 (10-20) Calcium Level 9.1 mg/dl (8.5-10.1) Total Bilirubin 0.5 mg/dl (0.2-1) Aspartate Amino Transf (AST/SGOT) 16 U/L (15-37) Alanine Aminotransferase (ALT/SGPT) 19 U/L (12-78) Alkaline Phosphatase 137 U/L (45-117) Total Protein 6.5 gm/dl (6.4-8.2) Albumin 2.0 gm/dl (3.4-5.0) Globulin 4.5 gm/dl (2.5-4.0) Albumin/Globulin Ratio 0.4 (0.9-2) Last 24 Hours Test 06/04/16 05:15 White Blood Count 12.82 K/uL Red Blood Count 3.66 M/uL Hemoglobin 11.6 g/dL Hematocrit 33.9 % Mean Corpuscular Volume 92.6 fL Mean Corpuscular Hemoglobin 31.7 pg Mean Corpuscular Hemoglobin Concent 34.2 g/dl Platelet Count 377 K/uL Mean Platelet Volume 9.1 fL Neutrophils (%) (Auto) 83.5 % Lymphocytes (%) (Auto) 9.8 % Monocytes (%) (Auto) 5.1 % Eosinophils (%) (Auto) 1.1 % Basophils (%) (Auto) 0.1 % Neutrophils # (Auto) 10.71 K/uL Lymphocytes # (Auto) 1.26 K/uL Monocytes # (Auto) 0.65 K/uL Eosinophils # (Auto) 0.14 K/uL Basophils # (Auto) 0.01 K/uL RDW Standard Deviation 58.2 fL RDW Coefficient of Variation 17.3 % Immature Granulocyte % (Auto) 0.4 % Immature Granulocyte # (Auto) 0.05 K/uL Sodium Level 133 mmol/L Potassium Level 4.5 mmol/L Chloride Level 95 mmol/L Carbon Dioxide Level 32 mmol/L Anion Gap 6.0 mmol/L Blood Urea Nitrogen 19 mg/dl Creatinine 0.63 mg/dl Est Creatinine Clear Calc Drug Dose 78.6 ml/min Estimated GFR () 110.2 Estimated GFR (Non- 95.1 BUN/Creatinine Ratio 29.9 Random Glucose 75 mg/dl Calcium Level 9.1 mg/dl Total Bilirubin 0.5 mg/dl Aspartate Amino Transf (AST/SGOT) 16 U/L Alanine Aminotransferase (ALT/SGPT) 19 U/L Alkaline Phosphatase 137 U/L Total Protein 6.5 gm/dl Albumin 2.0 gm/dl Globulin 4.5 gm/dl Albumin/Globulin Ratio 0.4 (Nayely Sharif PA-C) Assessment and Plan 75-year-old male with an unfortunate history of progressive interstitial lung disease presents to the emergency department with acute on chronic respiratory failure S/P bronchoscopy 05/24 that was uneventful Acute on chronic respiratory failure with hypoxia, multifactorial; severe interstitial lung disease, cavitary lung lesions with MAC infection-->appears worse today 05/31: bronchial washings from 05/21 returned as MAC Ethambutol, Azithromycin and Rifampin recommended per ID follow LFTs weekly Prednisone weaned down to 20 mg daily L pneumothorax/pneumomediastinum likely from ruptured bleb CXR shows it is decreasing in size today check CXR in AM Oral thrush: continue Nystatin S/S QID-->much improved Continue fluconazole 100 mg IV daily Day Hypertension continue Olmesartan at 10 mg twice daily Hypothyroidism Continue Synthroid 50 g daily Restless leg syndrome Continue Remeron 15 mg at night Weight loss possibly due to infection on top of severe pulm disease Hyperlipidemia Continue simvastatin 10 mg daily DVT prophylaxis -Heparin 5000 units subcutaneous BID -TEDS, SCDs CODE STATUS -CPR/cardioversion ok -NO INTUBATION DISPO PT rec for rehab. Maybe d/c in AM (Nayely Sharif PA-C) Attending Attestation: Pt seen/examined, chart reviewed, care plan d/w JUSTUS Sharif. I agree w/ the hinojosa components of her documentation. No complaints today except fatigue and sob. VSS no fever o2 sats stable on NC O2 gen - cacechtic w/ muscle wasting face, arms, etc mouth - thrush resolved neck - no JVD heart - irregular lungs - diffuse dry rales nearly all posterior lung segments with rhonchi b/l - no change from prior exam abd - soft ext - no edema EKG - NSR with PACs/PVCs A/P: 1. chronic resp failure 2nd to ILD 2. acute resp failure 2nd to DENAE infection 3. severe protein calorie malnutrition 4. failure to thrive 5. PT, OT both recommending rehab 6. left sided pneumothorax and pneumomediastinum - stable on cxr today 7. PACs/PVCs cont triple abx for DENAE cont O2 cont prednisone 20mg daily cont supplements (boost, etc) repeat cxr in AM for #6 - conservative management at this time ex-, OLIVIA, updated extensively by phone on 06/03/16 very, very poor prognosis Stephon Sanchez MD (Stephon Sanchez MD)
--- NOTE | 2016-06-04 15:52 | Infectious Disease Progress Nt ---
Progress Note Date of Service Jun 04, 2016. Subjective Pt evaluation today including: conversation w/ patient, physical exam, chart review, lab review, review of studies, conversation w/ garden consultant, review of inpatient medication list Cough about the same, breathing slightly worse today. Remains afebrile. Tolerating anti DENAE therapy without apparent difficulty thus far. All Other Systems: Reviewed and Negative Medications Current Inpatient Medications Medications (Trade) Dose Ordered Sig/Zayda Route Start Time Stop Time Status Last Admin Dose Admin Hydralazine HCl (HydrALAZINE INJ) 5 mg Q6H PRN IV. 05/20/16 19:15 06/19/16 19:14 Acetaminophen (Tylenol Tab) 650 mg Q4H PRN PO 05/20/16 19:15 06/19/16 19:14 06/02/16 06:55 650 MG Al Hydrox/Mg Hydrox/Simethicone (Maalox Max Susp) 15 ml Q4H PRN PO 05/20/16 19:15 06/19/16 19:14 Polyethylene (Miralax Powder Packet) 17 gm DAILY PRN PO 05/20/16 19:15 06/19/16 19:14 05/30/16 08:36 17 GM Ondansetron HCl (Zofran Inj) 4 mg Q6H PRN IV 05/20/16 19:15 06/19/16 19:14 Enteral Nutritional Formula (Boost) 1 can TID PO 05/20/16 21:00 06/19/16 20:59 06/03/16 20:54 1 CAN Aspirin (Ecotrin Tab) 81 mg QAM PO 05/21/16 08:00 06/20/16 08:59 06/04/16 08:57 81 MG Docusate Sodium (coLACE CAP) 100 mg BID PO 05/20/16 21:00 06/19/16 20:59 06/04/16 08:57 100 MG Levothyroxine Sodium (Synthroid Tab) 50 mcg DAILYBB PO 05/21/16 06:30 06/20/16 06:59 06/04/16 05:37 50 MCG Mirtazapine (Remeron Tab) 15 mg HS PO 05/20/16 21:00 06/19/16 20:59 06/03/16 21:00 15 MG Simvastatin (Zocor Tab) 10 mg HS PO 05/20/16 21:00 06/19/16 20:59 06/03/16 21:01 10 MG Artificial Tears (Artificial Tears) 1 drops QID OP 05/20/16 21:00 06/19/16 20:59 06/04/16 08:58 1 DROPS Albuterol/ Ipratropium (Combivent Respimat Inh) 1 puffs QID INH 05/22/16 16:00 06/21/16 15:59 06/04/16 13:01 1 PUFFS Albuterol/ Ipratropium (Duoneb) 3 ml Q4H PRN INH 05/22/16 12:45 06/21/16 12:44 Nystatin (Mycostatin Susp) 5 ml QID PO 05/27/16 17:00 06/06/16 16:59 06/04/16 13:01 5 ML Olmesartan (Benicar Tab) 10 mg BID PO 05/28/16 20:00 06/27/16 19:59 06/04/16 08:57 10 MG Rifampin (Rifadin Cap) 300 mg BID PO 05/31/16 20:00 06/07/16 19:59 06/04/16 08:56 300 MG Ethambutol HCl (Myambutol Tab) 400 mg BID PO 05/31/16 20:00 06/30/16 19:59 06/04/16 08:57 400 MG Azithromycin (Zithromax Tab) 500 mg QAM PO 06/01/16 08:00 06/07/16 07:59 06/04/16 08:57 500 MG Tramadol HCl (Ultram Tab) 50 mg Q4H PRN PO 06/02/16 15:15 07/02/16 15:14 06/04/16 11:01 50 MG Fluconazole (Diflucan Tab) 100 mg QAM PO 06/04/16 08:00 06/07/16 07:59 06/04/16 09:00 100 MG Prednisone (PredniSONE TAB) 20 mg DAILY PO 06/04/16 08:00 07/04/16 07:59 06/04/16 09:00 20 MG Multivitamins/ Minerals (Multivitamin W/ Minerals Tab) 1 tab QAM PO 06/04/16 08:00 07/04/16 07:59 06/04/16 09:00 1 TAB Objective Vital Signs Date Time Temp Pulse Resp B/P Pulse Ox O2 Delivery O2 Flow Rate FiO2 06/04/16 08:55 Nasal Cannula 2.0 06/04/16 07:07 36.6 96 16 133/86 96 6.0 06/04/16 00:16 36.7 72 20 144/79 97 Nasal Cannula 5.0 06/04/16 00:00 Nasal Cannula 2.0 06/03/16 16:00 Nasal Cannula 6.0 Physical Exam General Appearance: WD/WN, no apparent distress Eyes: normal inspection, sclerae normal ENT: normal ENT inspection, pharynx normal Neck: supple, no adenopathy, trachea midline Respiratory/Chest: chest non-tender, no respiratory distress, no accessory muscle use, + crackles Cardiovascular: regular rate, rhythm, no gallop, no murmur Abdomen: normal bowel sounds, non tender, soft, no organomegaly Extremities: non-tender, no calf tenderness Neurologic/Psychiatric: alert, oriented x 3 Skin: normal color, no rash Lymphatic: no adenopathy Laboratory Results Last 24 Hours Test 06/04/16 05:15 White Blood Count 12.82 K/uL Red Blood Count 3.66 M/uL Hemoglobin 11.6 g/dL Hematocrit 33.9 % Mean Corpuscular Volume 92.6 fL Mean Corpuscular Hemoglobin 31.7 pg Mean Corpuscular Hemoglobin Concent 34.2 g/dl Platelet Count 377 K/uL Mean Platelet Volume 9.1 fL Neutrophils (%) (Auto) 83.5 % Lymphocytes (%) (Auto) 9.8 % Monocytes (%) (Auto) 5.1 % Eosinophils (%) (Auto) 1.1 % Basophils (%) (Auto) 0.1 % Neutrophils # (Auto) 10.71 K/uL Lymphocytes # (Auto) 1.26 K/uL Monocytes # (Auto) 0.65 K/uL Eosinophils # (Auto) 0.14 K/uL Basophils # (Auto) 0.01 K/uL RDW Standard Deviation 58.2 fL RDW Coefficient of Variation 17.3 % Immature Granulocyte % (Auto) 0.4 % Immature Granulocyte # (Auto) 0.05 K/uL Sodium Level 133 mmol/L Potassium Level 4.5 mmol/L Chloride Level 95 mmol/L Carbon Dioxide Level 32 mmol/L Anion Gap 6.0 mmol/L Blood Urea Nitrogen 19 mg/dl Creatinine 0.63 mg/dl Est Creatinine Clear Calc Drug Dose 78.6 ml/min Estimated GFR () 110.2 Estimated GFR (Non- 95.1 BUN/Creatinine Ratio 29.9 Random Glucose 75 mg/dl Calcium Level 9.1 mg/dl Total Bilirubin 0.5 mg/dl Aspartate Amino Transf (AST/SGOT) 16 U/L Alanine Aminotransferase (ALT/SGPT) 19 U/L Alkaline Phosphatase 137 U/L Total Protein 6.5 gm/dl Albumin 2.0 gm/dl Globulin 4.5 gm/dl Albumin/Globulin Ratio 0.4 Assessment and Plan Progressive pulmonary process with cavitation with positive AFB in patient with chronic interstitial pneumonitis and bronchiectasis now with positive DNA for DENAE. patient be continued on therapy for DENAE, appears to be tolerating thus far. Will need to monitor liver enzymes periodically while on current regimen. Will discuss with all involved.
[2016-06-04 16:04] VITALS: BP 96/60; PULSE 104; TEMP 36.3; O2SAT 96
[2016-06-04] MEDS: MIRTAZAPINE TAB 15 MG TAB PO SCH (21:31)
[2016-06-04] MEDS: SIMVASTATIN 10 MG TAB PO SCH (21:31)
[2016-06-04 23:00] VITALS: BP 134/85; PULSE 79; TEMP 37; O2SAT 99
[2016-06-05 05:51] LABS: BASO % 0.1 %; BASO ABS # 0.01 K/uL (0-0.2); COMPLETE YES; EOS % 0.9 %; HEMATOCRIT 32.6 % (42-52); IG% 0.4 %; LYMPH % 8.6 %; LYMPH ABS # 1.29 K/uL (1.2-3.4); MEAN CELL VOLUME 91.8 fL (80-100); MEAN CORPUSCULAR HEMOGLOBIN 31.8 pg (25-34); MEAN CORPUSCULAR HGB CONC 34.7 g/dl (32-36); MONO % 4.9 %; NEUT % 85.1 %; PLATELET COUNT 401 K/uL (130-400); RED BLOOD COUNT 3.55 M/uL (4.7-6.1); WHITE BLOOD COUNT 15.01 K/uL (4.8-10.8)
[2016-06-05] MEDS: LEVOTHYROXINE 50 MCG TAB PO SCH (06:38)
--- NOTE | 2016-06-05 07:09 | PROGRESS NOTE ---
DATE: 06/05/2016 SUBJECTIVE: The patient is comfortable this morning, remains very weak. The patient states his appetite is good. He has not had any significant sputum production. Denies any chest pain. He states he is still short of breath with activity and very weak. He is tolerating his antimicrobial agents well. He has not had any hemoptysis. According to nurses' notes, he declined walking to the bathroom yesterday, used the bedside commode, had some urinary incontinence. PHYSICAL EXAMINATION: VITAL SIGNS: His blood pressure 134/85, pulse is 80 and regular, respiratory rate is 18 lying at 30 degrees, oxygen saturation is 99% on 6 liters. No weight has been done. I\T\O 910 in, 1600 out. NECK: There is no neck vein distention or HJR. No subcutaneous emphysema is noted. HEART: Regular rate and rhythm. No murmurs are heard. LUNGS: Continue to reveal some Velcro type crackles at the bases. ABDOMEN: Soft, nontender. EXTREMITIES: He has no cyanosis, clubbing or edema. SCDs are in place. Chest x-ray shows a 67 mm left apical pneumothorax with changes consistent with interstitial lung disease. Infectious disease notes are noted. IMPRESSION: 1. Interstitial lung disease. 2. DENAE on treatment. He is tolerating that well. He actually, I believe is improved. 3. Protein-calorie malnutrition. 4. Left apical pneumothorax with a pneumomediastinum. RECOMMENDATIONS: 1. At this point, I will continue his present medications, increase his p.o. intake. Continue with the prednisone taper, good DVT prophylaxis. 2. I think the albuterol, Combivent combination could be discontinued. 3. I would recheck a chest x-ray again tomorrow. If the patient goes to [facility], a repeat chest x-ray in 4-5 days should be done after discharge to ensure the pneumothorax would not worsen. I do not think it is worse now since it has been several days and has not worsened. He will need to be continued on his present triple antimicrobial agents probably for 12-16 months. He should follow up with Dr. Velasquez as an outpatient 1 week after discharge as well. JAMARI
--- NOTE | 2016-06-05 07:54 | DIAGNOSTIC IMAGING REPORT ---
SINGLE VIEW CHEST CLINICAL HISTORY: Follow-up pneumothorax. FINDINGS: An AP, portable, upright chest radiograph is compared to chest x-ray dated 06/04/2016 and correlated with chest CT performed 06/02/2016. The examination is degraded by portable technique and patient rotation. The heart is top normal in size and there is atherosclerotic calcification of the thoracic aorta. Findings of extensive chronic interstitial lung disease with multifocal bronchiectasis, cystic change, multifocal airspace opacities, and significant pleural thickening at the lung bases are again noted. Foci of superimposed airspace consolidation are seen in the upper lobes and at the right lung base. This is increasingly confluent in the right midlung is compared to yesterday. Small pleural effusions are suspected. A small left apical pneumothorax is unchanged from yesterday. The skeletal structures are osteopenic. The bony thorax appears intact. Degenerative change is noted throughout the thoracic spine. Foci of subcutaneous gas are again seen in the left axillary region. IMPRESSION: 1. A small left apical pneumothorax is unchanged in size from yesterday. 2. Findings of advanced chronic interstitial lung disease as above. 2. Foci of superimposed airspace consolidation are detailed above. This is increasingly confluence in the right lung as compared to yesterday. Pleural effusions are again noted. Electronically signed by: Flo Mosqueda M.D. 06/05/2016 7:51 AM Dictated Date/Time: 06/05/2016 7:50 AM
[2016-06-05 07:56] VITALS: BP 129/76; PULSE 89; TEMP 36.5; O2SAT 99
[2016-06-05] MEDS: DOCUSATE SODIUM 100 MG CAP PO SCH ×2 (08:51→20:49)
[2016-06-05] MEDS: CEROVITE ADV FORMULA TAB PO SCH (08:51)
[2016-06-05] MEDS: AZITHROMYCIN 250 MG TAB PO SCH (08:52)
[2016-06-05] MEDS: FLUCONAZOLE 100 MG TAB PO SCH (08:52)
[2016-06-05] MEDS: OLMESARTAN MEDOXOMIL 20 MG TAB PO SCH ×2 (08:52→20:48)
[2016-06-05] MEDS: ASPIRIN 81 MG ECTAB PO SCH (08:52)
[2016-06-05] MEDS: IPRATROPIUM BROMIDE/ALBUTEROL respimat INH INH SCH ×4 (08:53→20:47)
[2016-06-05] MEDS: ETHAMBUTOL HCL 400 MG TAB PO SCH ×2 (08:53→20:50)
[2016-06-05] MEDS: ARTIFICIAL TEARS OP SOLN OP SCH ×8 (08:54→20:00)
[2016-06-05] MEDS: NYSTATIN SUSP 500,000 U/5 ML UDC PO SCH ×4 (08:54→20:51)
[2016-06-05] MEDS: RIFAMPIN 300 MG CAP PO SCH ×2 (08:54→20:50)
[2016-06-05] MEDS: BOOST VANILLA PO SCH ×6 (08:55→20:47)
--- NOTE | 2016-06-05 15:11 | Infectious Disease Progress Nt ---
Progress Note Date of Service Jun 05, 2016. Subjective Pt evaluation today including: conversation w/ patient, physical exam, chart review, lab review, review of studies, conversation w/ transportation consultant, review of inpatient medication list Remains weak and debilitated. Cough last, little sputum production. Tolerating antibiotics thus far without apparent difficulty. No fever. All Other Systems: Reviewed and Negative Medications Current Inpatient Medications Medications (Trade) Dose Ordered Sig/Zayda Route Start Time Stop Time Status Last Admin Dose Admin Hydralazine HCl (HydrALAZINE INJ) 5 mg Q6H PRN IV. 05/20/16 19:15 06/19/16 19:14 Acetaminophen (Tylenol Tab) 650 mg Q4H PRN PO 05/20/16 19:15 06/19/16 19:14 06/02/16 06:55 650 MG Al Hydrox/Mg Hydrox/Simethicone (Maalox Max Susp) 15 ml Q4H PRN PO 05/20/16 19:15 06/19/16 19:14 Polyethylene (Miralax Powder Packet) 17 gm DAILY PRN PO 05/20/16 19:15 06/19/16 19:14 05/30/16 08:36 17 GM Ondansetron HCl (Zofran Inj) 4 mg Q6H PRN IV 05/20/16 19:15 06/19/16 19:14 Enteral Nutritional Formula (Boost) 1 can TID PO 05/20/16 21:00 06/19/16 20:59 06/05/16 13:13 1 CAN Aspirin (Ecotrin Tab) 81 mg QAM PO 05/21/16 08:00 06/20/16 08:59 06/05/16 08:52 81 MG Docusate Sodium (coLACE CAP) 100 mg BID PO 05/20/16 21:00 06/19/16 20:59 06/05/16 08:51 100 MG Levothyroxine Sodium (Synthroid Tab) 50 mcg DAILYBB PO 05/21/16 06:30 06/20/16 06:59 06/05/16 06:38 50 MCG Mirtazapine (Remeron Tab) 15 mg HS PO 05/20/16 21:00 06/19/16 20:59 06/04/16 21:31 15 MG Simvastatin (Zocor Tab) 10 mg HS PO 05/20/16 21:00 06/19/16 20:59 06/04/16 21:31 10 MG Artificial Tears (Artificial Tears) 1 drops QID OP 05/20/16 21:00 06/19/16 20:59 06/05/16 13:14 1 DROPS Albuterol/ Ipratropium (Combivent Respimat Inh) 1 puffs QID INH 05/22/16 16:00 06/21/16 15:59 06/05/16 13:13 1 PUFFS Albuterol/ Ipratropium (Duoneb) 3 ml Q4H PRN INH 05/22/16 12:45 06/21/16 12:44 Nystatin (Mycostatin Susp) 5 ml QID PO 05/27/16 17:00 06/06/16 16:59 06/05/16 13:13 5 ML Olmesartan (Benicar Tab) 10 mg BID PO 05/28/16 20:00 06/27/16 19:59 06/05/16 08:52 10 MG Rifampin (Rifadin Cap) 300 mg BID PO 05/31/16 20:00 06/07/16 19:59 06/05/16 08:54 300 MG Ethambutol HCl (Myambutol Tab) 400 mg BID PO 05/31/16 20:00 06/30/16 19:59 06/05/16 08:53 400 MG Azithromycin (Zithromax Tab) 500 mg QAM PO 06/01/16 08:00 06/07/16 07:59 06/05/16 08:52 500 MG Tramadol HCl (Ultram Tab) 50 mg Q4H PRN PO 06/02/16 15:15 07/02/16 15:14 06/04/16 11:01 50 MG Fluconazole (Diflucan Tab) 100 mg QAM PO 06/04/16 08:00 06/07/16 07:59 06/05/16 08:52 100 MG Prednisone (PredniSONE TAB) 20 mg DAILY PO 06/04/16 08:00 07/04/16 07:59 06/05/16 08:53 20 MG Multivitamins/ Minerals (Multivitamin W/ Minerals Tab) 1 tab QAM PO 06/04/16 08:00 07/04/16 07:59 06/05/16 08:51 1 TAB Objective Vital Signs Date Time Temp Pulse Resp B/P Pulse Ox O2 Delivery O2 Flow Rate FiO2 06/05/16 09:05 Nasal Cannula 6.0 06/05/16 07:56 36.5 89 22 129/76 99 Nasal Cannula 6.0 06/05/16 00:00 Nasal Cannula 6.0 06/04/16 23:00 37.0 79 18 134/85 99 Nasal Cannula 6.0 06/04/16 16:10 Nasal Cannula 6.0 06/04/16 16:04 36.3 104 20 96/60 96 Nasal Cannula 7.0 Physical Exam General Appearance: no apparent distress, + pertinent finding ( Chronically ill-appearing) Eyes: normal inspection, EOMI, sclerae normal ENT: normal ENT inspection, pharynx normal Neck: supple, no adenopathy, trachea midline Respiratory/Chest: chest non-tender, lungs clear, normal breath sounds, no respiratory distress Cardiovascular: regular rate, rhythm, no gallop, no murmur Abdomen: normal bowel sounds, non tender, soft, no organomegaly Extremities: non-tender, no calf tenderness Neurologic/Psychiatric: alert, oriented x 3 Skin: normal color, no rash Lymphatic: no adenopathy Laboratory Results Last 24 Hours Test 06/05/16 05:15 White Blood Count 15.01 K/uL Red Blood Count 3.55 M/uL Hemoglobin 11.3 g/dL Hematocrit 32.6 % Mean Corpuscular Volume 91.8 fL Mean Corpuscular Hemoglobin 31.8 pg Mean Corpuscular Hemoglobin Concent 34.7 g/dl Platelet Count 401 K/uL Mean Platelet Volume 9.0 fL Neutrophils (%) (Auto) 85.1 % Lymphocytes (%) (Auto) 8.6 % Monocytes (%) (Auto) 4.9 % Eosinophils (%) (Auto) 0.9 % Basophils (%) (Auto) 0.1 % Neutrophils # (Auto) 12.78 K/uL Lymphocytes # (Auto) 1.29 K/uL Monocytes # (Auto) 0.74 K/uL Eosinophils # (Auto) 0.13 K/uL Basophils # (Auto) 0.01 K/uL RDW Standard Deviation 57.7 fL RDW Coefficient of Variation 17.4 % Immature Granulocyte % (Auto) 0.4 % Immature Granulocyte # (Auto) 0.06 K/uL Assessment and Plan Progressive pulmonary process with cavitation with positive AFB in patient with chronic interstitial pneumonitis and bronchiectasis now with positive DNA for DENAE. patient be continued on therapy for DENAE, appears to be tolerating thus far. Will need to monitor liver enzymes periodically while on current regimen. Will follow.
[2016-06-05] MEDS ORDERED: MAGIC SWIZZLE PO SCH (15:15)
--- NOTE | 2016-06-05 15:20 | Hospitalist Progress Note ---
Hospitalist Progress Note Date of Service Jun 05, 2016. (Nayely Sharif PA-C) Subjective Pt evaluation today including: conversation w/ patient, physical exam, chart review, lab review, review of studies, conversation w/ [employer] identity management consultant, review of inpatient medication list Patient "not very good today." Breathing seems to be somewhat worse. Still with a mildly productive cough. Denies any fever or chills. Chest pain in the left upper chest is still present. Unchanged from yesterday. Moving his bowels "sporadically". Denies any abdominal pain or nausea. Additional Comments: 6 system review negative. Please see pertinent positives in the history of present illness section. (Nayely Sharif PA-C) Objective Vital Signs Date Time Temp Pulse Resp B/P Pulse Ox O2 Delivery O2 Flow Rate FiO2 06/05/16 09:05 Nasal Cannula 6.0 06/05/16 07:56 36.5 89 22 129/76 99 Nasal Cannula 6.0 06/05/16 00:00 Nasal Cannula 6.0 06/04/16 23:00 37.0 79 18 134/85 99 Nasal Cannula 6.0 06/04/16 16:10 Nasal Cannula 6.0 06/04/16 16:04 36.3 104 20 96/60 96 Nasal Cannula 7.0 (Nayely Sharif PA-C) Physical Exam General Appearance: + moderate distress (moderate respiratory distress), + cachetic, + pertinent finding (flushed) Eyes: EOMI Neck: no JVD Respiratory/Chest: + crackles, + rhonchi, + pertinent finding (continued coarse breath sounds bilaterally. Few crackles bilaterally. No significant wheezing. Tachypneic. On 6 L oxygen per nasal cannula.) Cardiovascular: + tachycardia Abdomen: non tender, soft, + pertinent finding (bowel sounds present, but hypoactive) Extremities: non-tender, no pedal edema, + pertinent finding (muscle wasting noted) Neurologic/Psychiatric: no motor/sensory deficits, oriented x 3 Skin: warm/dry (Nayely Sharif PA-C) Laboratory Results 06/05/16 05:15 Red Blood Count 3.55, Mean Corpuscular Volume 91.8, Mean Corpuscular Hemoglobin 31.8, Mean Corpuscular Hemoglobin Concent 34.7, Mean Platelet Volume 9.0, Neutrophils (%) (Auto) 85.1, Lymphocytes (%) (Auto) 8.6, Monocytes (%) (Auto) 4.9, Eosinophils (%) (Auto) 0.9, Basophils (%) (Auto) 0.1, Neutrophils # (Auto) 12.78, Lymphocytes # (Auto) 1.29, Monocytes # (Auto) 0.74, Eosinophils # (Auto) 0.13, Basophils # (Auto) 0.01 Test 06/05/16 05:15 White Blood Count 15.01 K/uL (4.8-10.8) Red Blood Count 3.55 M/uL (4.7-6.1) Hemoglobin 11.3 g/dL (14.0-18.0) Hematocrit 32.6 % (42-52) Mean Corpuscular Volume 91.8 fL (80-100) Mean Corpuscular Hemoglobin 31.8 pg (25-34) Mean Corpuscular Hemoglobin Concent 34.7 g/dl (32-36) Platelet Count 401 K/uL (130-400) Mean Platelet Volume 9.0 fL (7.4-10.4) Neutrophils (%) (Auto) 85.1 % Lymphocytes (%) (Auto) 8.6 % Monocytes (%) (Auto) 4.9 % Eosinophils (%) (Auto) 0.9 % Basophils (%) (Auto) 0.1 % Neutrophils # (Auto) 12.78 K/uL (1.4-6.5) Lymphocytes # (Auto) 1.29 K/uL (1.2-3.4) Monocytes # (Auto) 0.74 K/uL (0.11-0.59) Eosinophils # (Auto) 0.13 K/uL (0-0.5) Basophils # (Auto) 0.01 K/uL (0-0.2) RDW Standard Deviation 57.7 fL (36.4-46.3) RDW Coefficient of Variation 17.4 % (11.5-14.5) Immature Granulocyte % (Auto) 0.4 % Immature Granulocyte # (Auto) 0.06 K/uL (0.00-0.02) Last 24 Hours Test 06/05/16 05:15 White Blood Count 15.01 K/uL Red Blood Count 3.55 M/uL Hemoglobin 11.3 g/dL Hematocrit 32.6 % Mean Corpuscular Volume 91.8 fL Mean Corpuscular Hemoglobin 31.8 pg Mean Corpuscular Hemoglobin Concent 34.7 g/dl Platelet Count 401 K/uL Mean Platelet Volume 9.0 fL Neutrophils (%) (Auto) 85.1 % Lymphocytes (%) (Auto) 8.6 % Monocytes (%) (Auto) 4.9 % Eosinophils (%) (Auto) 0.9 % Basophils (%) (Auto) 0.1 % Neutrophils # (Auto) 12.78 K/uL Lymphocytes # (Auto) 1.29 K/uL Monocytes # (Auto) 0.74 K/uL Eosinophils # (Auto) 0.13 K/uL Basophils # (Auto) 0.01 K/uL RDW Standard Deviation 57.7 fL RDW Coefficient of Variation 17.4 % Immature Granulocyte % (Auto) 0.4 % Immature Granulocyte # (Auto) 0.06 K/uL (Nayley Sharif PA-C) Diagnostic Results Patient Name: BISI YANG Unit Number: [id number] Dictated: 06/05/16749 Transcribed: 06/05/16749 EV Printed Date/Time: [~ rep prt dt]/[~ rep prt tm] [~ rep ct labl] - [~ rep ct ivnm] [facility] [place] [address] Dictated: 06/05/16749 Transcribed: 06/05/16749 EV Printed Date/Time: [~ rep prt dt]/[~ rep prt tm] [~ rep ct labl] - [~ rep ct ivnm] SINGLE VIEW CHEST CLINICAL HISTORY: Follow-up pneumothorax. FINDINGS: An AP, portable, upright chest radiograph is compared to chest x-ray dated 06/04/2016 and correlated with chest CT performed 06/02/2016. The examination is degraded by portable technique and patient rotation. The heart is top normal in size and there is atherosclerotic calcification of the thoracic aorta. Findings of extensive chronic interstitial lung disease with multifocal bronchiectasis, cystic change, multifocal airspace opacities, and significant pleural thickening at the lung bases are again noted. Foci of superimposed airspace consolidation are seen in the upper lobes and at the right lung base. This is increasingly confluent in the right midlung is compared to yesterday. Small pleural effusions are suspected. A small left apical pneumothorax is unchanged from yesterday. The skeletal structures are osteopenic. The bony thorax appears intact. Degenerative change is noted throughout the thoracic spine. Foci of subcutaneous gas are again seen in the left axillary region. IMPRESSION: 1. A small left apical pneumothorax is unchanged in size from yesterday. 2. Findings of advanced chronic interstitial lung disease as above. 2. Foci of superimposed airspace consolidation are detailed above. This is increasingly confluence in the right lung as compared to yesterday. Pleural effusions are again noted. Electronically signed by: Flo Mosqueda M.D. 06/05/2016 7:51 AM Dictated Date/Time: 06/05/2016 7:50 AM The status of this report is Signed. Draft = Not yet reviewed or approved by Radiologist. Signed = Reviewed and approved by Radiologist. <AttendingPhy>Stephon Sanchez MD</AttendingPhy> <FamilyPhy>Abraham Bermeo M.D.</FamilyPhy> <PrimaryPhy>Abraham Bermeo M.D.</PrimaryPhy> <UnitNumber> [id number]</UnitNumber> <VisitNumber>[id number]</VisitNumber> <PatientName> BISI YANG</PatientName> <DateOfBirth>1940</DateOfBirth> <Location> C.[facility]</Location> <ServiceDate>05/20/16</ServiceDate> <MNE>ESINDI</MNE> < OrderingPhy>Nayely Sharif PA-C</OrderingPhy> <OrderingPhyMNE>f rep ord dr nolasco< /OrderingPhyMNE> <DictatingPhyMNE>f rep dict dr nolasco</DictatingPhyMNE> <CCListMNE >f rep ct constance</CCListMNE> <AdmittingPhyMNE>f pt admit dr nolasco</AdmittingPhyMNE> < AttendingPhyMNE>f pt attend dr nolasco</AttendingPhyMNE> <ConsultingPhyMNE>f pt consult dr nolasco</ConsultingPhyMNE> <FamilyPhyMNE>f pt fam dr nolasco</FamilyPhyMNE> <OtherPhyMNE>f pt other dr nolasco</OtherPhyMNE> < PrimaryPhyMNE>f pt prim care dr nolasco</PrimaryPhyMNE> <ReferringPhyMNE>f pt referring dr nolasco</ReferringPhyMNE> (Nayely Sharif PA-C) Assessment and Plan 75-year-old male with an unfortunate history of progressive interstitial lung disease presents to the emergency department with acute on chronic respiratory failure S/P bronchoscopy 05/24 that was uneventful Acute on chronic respiratory failure with hypoxia, multifactorial; severe interstitial lung disease, cavitary lung lesions with MAC infection-->no improvement from yesterday. Possibly even worse 05/31: bronchial washings from 05/21 returned as MAC Ethambutol, Azithromycin and Rifampin recommended per ID Needs 12-16 months of therapy per pulm-->don't think the pt will tolerate. Will likely decompensate over the next 1-2 months Prednisone currently at 20 mg daily Concerned pt is getting worse, may be developing hospital acquired PNA Long discussion with patient regarding goals of care. Patient is agreeable with palliative care consult Patient was informed of very poor prognosis. He understands Acute rehabilitation upon discharge is not appropriate. The patient will not be able to tolerate this. SNF with transition to hospice recommended L pneumothorax/pneumomediastinum likely from ruptured bleb-stable no tube recommended needs CXR in AM needs f/u with dr. Velasquez in 1 week of d/c Oral thrush: continue Nystatin S/S QID-->much improved Continue fluconazole 100 mg IV daily Day 7 of 14 add magic swizzle Hypertension continue Olmesartan at 10 mg twice daily Hypothyroidism Continue Synthroid 50 g daily Restless leg syndrome Continue Remeron 15 mg at night Weight loss possibly due to infection on top of severe pulm disease Hyperlipidemia Continue simvastatin 10 mg daily DVT prophylaxis -Heparin 5000 units subcutaneous BID -TEDS, SCDs CODE STATUS -CPR/cardioversion ok -NO INTUBATION DISPO Palliative care consult. We as a team will discuss DO NOT RESUSCITATE status. Goal would be to get patient back to [facility] with hospice care (Nayely Sharif PA-C) Attending Attestation: Pt seen/examined, chart reviewed, care plan d/w JUSTUS Sharif. I agree w/ the hinojsoa components of her documentation. Pt with ongoing cough, dyspnea with minimal activity. He voices anxiety about his current health status. He is agreeable to speaking to palliative care. VSS no fever o2 sats stable on NC O2 as previous gen - cacechtic, coughing intermittently neck - no JVD heart - irregular lungs - diffuse dry rales nearly all posterior lung segments with rhonchi b/l - no change from prior exam; modestly decreased BS on left vs the right abd - soft ext - no edema A/P: 1. chronic resp failure 2nd to ILD 2. acute resp failure 2nd to DENAE infection 3. severe protein calorie malnutrition 4. failure to thrive 5. left sided pneumothorax and pneumomediastinum cont triple abx for DENAE cont O2 cont prednisone 20mg daily cont supplements (boost, etc) repeat cxr in AM for #5 - conservative management at this time very, very poor prognosis agree with palliative care consultation and transition to hospice at discharge Stephon Sanchez MD (Stephon Sanchez MD)
[2016-06-05 15:38] VITALS: BP 120/74; PULSE 77; TEMP 36.4; O2SAT 97
[2016-06-05] MEDS: LIDOCAINE HCL 2% VISCOUS SOLN 60 ML, DiphenhydrAMINE HCL SYRUP 150 MG, ALUMINUM/MAGNESI... MT SCH ×4 (18:47)
[2016-06-05] MEDS: MIRTAZAPINE TAB 15 MG TAB PO SCH (20:50)
[2016-06-05] MEDS: SIMVASTATIN 10 MG TAB PO SCH (20:51)
[2016-06-06] VITALS: BP 137/85; PULSE 89; TEMP 36.6; O2SAT 99
[2016-06-06] MEDS: LEVOTHYROXINE 50 MCG TAB PO SCH (05:54)
[2016-06-06] MEDS: LIDOCAINE HCL 2% VISCOUS SOLN 60 ML, DiphenhydrAMINE HCL SYRUP 150 MG, ALUMINUM/MAGNESI... MT SCH ×20 (05:56→23:46)
[2016-06-06 07:57] VITALS: BP 133/78; PULSE 88; TEMP 36.7; O2SAT 96
--- NOTE | 2016-06-06 09:05 | DIAGNOSTIC IMAGING REPORT ---
CHEST ONE VIEW PORTABLE CLINICAL HISTORY: hx L pneumo, worsening R opacities pneumonia COMPARISON STUDY: 06/05/2016 FINDINGS: Unchanging bilateral parenchymal infiltrative/fibrotic change. Diaphragms are smooth. Very slight blunting right lateral gastric angle unchanged. IMPRESSION: Unchanging bilateral parenchymal infiltrative /fibrotic change. Small left apical pneumothorax on the prior studies diminished and/or less well seen. Electronically signed by: Jr Foley M.D. 06/06/2016 9:03 AM Dictated Date/Time: 06/06/2016 8:59 AM
[2016-06-06] MEDS: IPRATROPIUM BROMIDE/ALBUTEROL respimat INH INH SCH ×4 (10:07→20:31)
[2016-06-06] MEDS: AZITHROMYCIN 250 MG TAB PO SCH (10:07)
[2016-06-06] MEDS: ASPIRIN 81 MG ECTAB PO SCH (10:07)
[2016-06-06] MEDS: OLMESARTAN MEDOXOMIL 20 MG TAB PO SCH ×2 (10:08→20:35)
[2016-06-06] MEDS: CEROVITE ADV FORMULA TAB PO SCH (10:08)
[2016-06-06] MEDS: FLUCONAZOLE 100 MG TAB PO SCH (10:08)
[2016-06-06] MEDS: DOCUSATE SODIUM 100 MG CAP PO SCH ×2 (10:08→20:36)
[2016-06-06] MEDS: RIFAMPIN 300 MG CAP PO SCH ×2 (10:09→20:37)
[2016-06-06] MEDS: NYSTATIN SUSP 500,000 U/5 ML UDC PO SCH ×2 (10:09→13:44)
[2016-06-06] MEDS: ETHAMBUTOL HCL 400 MG TAB PO SCH ×2 (10:09→20:36)
[2016-06-06] MEDS: ARTIFICIAL TEARS OP SOLN OP SCH ×10 (10:10→20:34)
[2016-06-06] MEDS: BOOST VANILLA PO SCH ×6 (10:10→20:31)
--- NOTE | 2016-06-06 11:23 | Palliative Care Consultation ---
Consultation Date of Consultation: Jun 06, 2016. Requesting Physician: Nayely Sharif PA-C Attending Physician: Dr. 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 Patient has pulmonary fibrosis which apparently has been progressing quite quickly. Patient's lost 60lb in last year, worsening shortness of breath, and now during this admission has been found to have pneumonia-- bronch washings show mycobacterium infection. Patient will be required to be long-term antibiotics (12-16 months). He lives in [facility] personal residential with his . Patient really does not feel that he has improved at all during admission, primary medical team concerned that he is actually worsening. Palliative care consulted to assist with establishing goals of care. I met with the patient in room 400. He is short of breath in the bed, but no apparent distress. Chronically ill appearing, very thin and cachectic. We had a discussion about his medical conditions. Patient was unaware of the type of infection he has or how long he would need to be on antibiotics, but he verbalizes understanding. He also understands that his lung disease is end- stage. His goal is to get back home to [facility] with his . It was explained to him that the only way this could happen at this point is if it is with hospice-- who would keep patient comfortable and out of the hospital. He is considering this but asked for some time to think about it. He is willing to try some Roxanol for his SOB and is ready to focus more on comfort. He does not think he would want to continue abx for 12-16 months. Past Medical/Surgical History Medical History: Pulmonary fibrosis Hypothyroidism Hypertension RLS Weight loss Hyperlipidemia BPH Peripheral neuropathy Appendectomy Tonsillectomy Social History Smoking Status: Former Smoker History of Alcohol Use: Yes (1x week, 1 beer) Drug Use: none Marital Status: Housing Status: other (lives at the [facility]) Occupation Status: retired Review of Systems Constitutional: + fatigue, + weakness Respiratory: + cough, + dyspnea at rest, + shortness of breath Cardiac: + chest pain, No edema Abdomen: No nausea, No pain, No vomiting Male : No problem reported Allergies Coded Allergies: Sulfa Antibiotics (Verified Allergy, Unknown, "SULFA DRUGS", 05/20/16) Medications Current Inpatient Medications Medications (Trade) Dose Ordered Sig/Zayda Route Start Time Stop Time Status Last Admin Dose Admin Hydralazine HCl (HydrALAZINE INJ) 5 mg Q6H PRN IV. 05/20/16 19:15 06/19/16 19:14 Acetaminophen (Tylenol Tab) 650 mg Q4H PRN PO 05/20/16 19:15 06/19/16 19:14 06/02/16 06:55 650 MG Al Hydrox/Mg Hydrox/Simethicone (Maalox Max Susp) 15 ml Q4H PRN PO 05/20/16 19:15 06/19/16 19:14 Polyethylene (Miralax Powder Packet) 17 gm DAILY PRN PO 05/20/16 19:15 06/19/16 19:14 05/30/16 08:36 17 GM Ondansetron HCl (Zofran Inj) 4 mg Q6H PRN IV 05/20/16 19:15 06/19/16 19:14 Enteral Nutritional Formula (Boost) 1 can TID PO 05/20/16 21:00 06/19/16 20:59 06/05/16 20:47 1 CAN Aspirin (Ecotrin Tab) 81 mg QAM PO 05/21/16 08:00 06/20/16 08:59 06/05/16 08:52 81 MG Docusate Sodium (coLACE CAP) 100 mg BID PO 05/20/16 21:00 06/19/16 20:59 06/05/16 20:49 100 MG Levothyroxine Sodium (Synthroid Tab) 50 mcg DAILYBB PO 05/21/16 06:30 06/20/16 06:59 06/06/16 05:54 50 MCG Mirtazapine (Remeron Tab) 15 mg HS PO 05/20/16 21:00 06/19/16 20:59 06/05/16 20:50 15 MG Simvastatin (Zocor Tab) 10 mg HS PO 05/20/16 21:00 06/19/16 20:59 06/05/16 20:51 10 MG Artificial Tears (Artificial Tears) 1 drops QID OP 05/20/16 21:00 06/19/16 20:59 06/05/16 13:14 1 DROPS Albuterol/ Ipratropium (Combivent Respimat Inh) 1 puffs QID INH 05/22/16 16:00 06/21/16 15:59 06/05/16 20:47 1 PUFFS Albuterol/ Ipratropium (Duoneb) 3 ml Q4H PRN INH 05/22/16 12:45 06/21/16 12:44 Nystatin (Mycostatin Susp) 5 ml QID PO 05/27/16 17:00 06/06/16 16:59 06/05/16 20:51 5 ML Olmesartan (Benicar Tab) 10 mg BID PO 05/28/16 20:00 06/27/16 19:59 06/05/16 20:48 10 MG Rifampin (Rifadin Cap) 300 mg BID PO 05/31/16 20:00 06/07/16 19:59 06/05/16 20:50 300 MG Ethambutol HCl (Myambutol Tab) 400 mg BID PO 05/31/16 20:00 06/30/16 19:59 06/05/16 20:50 400 MG Azithromycin (Zithromax Tab) 500 mg QAM PO 06/01/16 08:00 06/07/16 07:59 06/05/16 08:52 500 MG Tramadol HCl (Ultram Tab) 50 mg Q4H PRN PO 06/02/16 15:15 07/02/16 15:14 06/04/16 11:01 50 MG Fluconazole (Diflucan Tab) 100 mg QAM PO 06/04/16 08:00 06/07/16 07:59 06/05/16 08:52 100 MG Prednisone (PredniSONE TAB) 20 mg DAILY PO 06/04/16 08:00 07/04/16 07:59 06/05/16 08:53 20 MG Multivitamins/ Minerals 1 tab QAM PO 06/04/16 08:00 07/04/16 07:59 06/05/16 08:51 1 TAB Lidocaine HCl/ Diphenhydramine HCl/Al Hydroxide/ Mg Hydroxide/ Glycerin/Barcode (VISCOUS LIDOCAINE 2% Soln/ Benadryl Syrup/ Maalox Susp/ Glycerin Anhydrous Soln) Q6 MT 06/05/16 18:00 07/05/16 17:59 06/06/16 05:56 5 ML Physical Exam Date Time Temp Pulse Resp B/P Pulse Ox O2 Delivery O2 Flow Rate FiO2 06/06/16 07:57 36.7 88 22 133/78 96 Nasal Cannula 6.0 06/06/16 00:00 99 Nasal Cannula 6.0 06/06/16 00:00 36.6 89 18 137/85 99 Nasal Cannula 6.0 06/05/16 16:00 Nasal Cannula 6.0 06/05/16 15:38 36.4 77 18 120/74 97 Nasal Cannula 6.0 General Appearance: + cachetic, + thin ENT: hearing grossly normal Neck: no JVD Respiratory: + decreased breath sounds, + accessory muscle use, + pertinent finding (nasal cannula. respirations are labored) Cardiovascular: regular rate, rhythm, no edema, + normal peripheral pulses Abdomen: normal bowel sounds, non tender, soft Neurologic/Psychiatric: alert, normal mood/affect, oriented x 3 Assessment & Plan Palliative Performance Scale: 20 % Problem list: Weakness Shortness of breath Cachexia/weight loss/failure to thrive Pain, chest Left pneumothorax Thrush MAC infection Goals of care (Z51.5) Palliative care plan: discussed with patient and Dr. Sanchez -DNR/DNI per patient's wishes -Ready to focus more on comfort, is making a decision on whether or not to go home with hospice to [facility] with his -Start Roxanol 2.5mg PO Q3h PRN for pain or SOB Thank you kindly for this consult. I will follow.
[2016-06-06] MEDS: POLYETHYLENE (MIRALAX) 17 GM PACK PO PRN (11:25)
[2016-06-06] MEDS ORDERED: NURSING VERBAL MED ORDER ONE (12:00)
[2016-06-06] MEDS: MoRPHine SULFATE 2.5 MG/0.125 ML UDP PO PRN (13:44)
[2016-06-06 15:38] VITALS: BP 124/64; PULSE 89; TEMP 36.4; O2SAT 95
[2016-06-06] MEDS ORDERED: LORAZEPAM 0.5 MG TAB PO PRN (20:00)
[2016-06-06] MEDS: SIMVASTATIN 10 MG TAB PO SCH (20:37)
[2016-06-06] MEDS: MIRTAZAPINE TAB 15 MG TAB PO SCH (20:37)
[2016-06-06 23:56] VITALS: BP 156/80; PULSE 76; TEMP 36.4; O2SAT 96
[2016-06-07 01:25] VITALS: O2SAT 99
--- NOTE | 2016-06-07 05:06 | Progress Note ---
Subjective Date of Service: late entry for visit Jun 06, 2016. Subjective Pt evaluation today including: conversation w/ patient, conversation w/ family (ex- (she is his POA) by phone), physical exam, chart review, lab review, review of studies (cxr), conversation w/ senior financial consultant (palliative care), review of inpatient medication list Pain: denies PO Intake: "good" Voiding: no voiding problems patient reports anxiety about his health he states he is almost afraid to leave his hospital room because of his breathing he is anxious to see his ex- and talk with her about his current state of health he would be delighted if he could return to [facility] rather than going somewhere else continues with mild dry cough continues with dyspnea with any activity Problem List Medical Problems: (1) Change in mental status Status: Acute (2) Pneumonia Status: Acute (3) Weakness Status: Acute Review of Systems Constitutional: No fever Cardiac: No chest pain Abdomen: No pain Objective Vital Signs Date Time Temp Pulse Resp B/P Pulse Ox O2 Delivery O2 Flow Rate FiO2 06/07/16 01:25 99 Nasal Cannula 6.0 06/06/16 23:56 36.4 76 20 156/80 96 Nasal Cannula 6.0 06/06/16 16:00 Nasal Cannula 6.0 06/06/16 15:38 36.4 89 20 124/64 95 Nasal Cannula 6.0 06/06/16 10:00 Nasal Cannula 6.0 06/06/16 07:57 36.7 88 22 133/78 96 Nasal Cannula 6.0 Physical Exam General Appearance: no apparent distress, + cachetic ENT: pharynx normal, + pertinent finding (thrush resolved) Neck: no JVD Respiratory/Chest: no respiratory distress, no accessory muscle use, + decreased breath sounds (left, anterior), + crackles (extensive b/l, nearly all the way up the back b/l ), + pertinent finding (course BS b/l) Cardiovascular: regular rate, rhythm, no gallop, no murmur Abdomen: normal bowel sounds, non tender, soft, no organomegaly Extremities: no pedal edema Neurologic/Psychiatric: alert, oriented x 3, + pertinent finding (anxious) Assessment and Plan 75yo male with: 1. chronic resp failure 2nd to ILD - advanced, progressive. 2. acute resp failure 2nd to DENAE infection - overall status is "stable" but I am concerned this will be difficult to treat, if at all. 3. severe protein calorie malnutrition - ongoing; 2nd to #1, #2. 4. failure to thrive - 2nd to #1, #2. 5. left sided pneumothorax and pneumomediastinum - 2nd to #1, #2. 6. thrush - improved. 7. HTN - controlled 8. hypothyroidism - cont synthroid 9. DVT proph - defer if transitioning to hospice cont triple abx for DENAE cont O2 cont prednisone 20mg daily cont supplements (boost, etc) repeat cxr in AM for #5 - conservative management at this time cont thrush Rx very, very poor prognosis agree with palliative care consultation and transition to hospice at discharge he seems agreeable to this now a level 5 DNR spoke with ex- by phone on the evening of 06/06 she is coming to see him afternoon of 06/07 this will be a good opportunity for the care team to discuss his aftercare, transition to hospice (if he is in full agreement), etc involve SW to determine if [facility] Knight will be able to provide the necessary care for him Continued [facility] stay due to: multiple IV medications needed Discharge planning: uncertain
[2016-06-07] MEDS: LIDOCAINE HCL 2% VISCOUS SOLN 60 ML, DiphenhydrAMINE HCL SYRUP 150 MG, ALUMINUM/MAGNESI... MT SCH ×12 (05:19→18:00)
[2016-06-07] MEDS: LEVOTHYROXINE 50 MCG TAB PO SCH (05:21)
--- NOTE | 2016-06-07 06:29 | PROGRESS NOTE ---
DATE: 06/07/2016 SUBJECTIVE: The patient is comfortable this morning, although he remains very weak. He denies cough. He states his appetite is fair and he has been eating just fair. He has difficulty with getting out of bed because of the generalized weakness. According to the nurses' notes he has been stable on 6 liters, had some urinary incontinence and also refusing to ambulate to the bathroom. He was out of bed in the chair yesterday. I discussed increasing his activity as much as possible and rehabilitation will be appropriate for him. OBJECTIVE: VITAL SIGNS: Stable. His blood pressure is 156/80, oxygen saturation 99% on 6 liters. I\T\O; 200 in and 325 out. No weight has been done. GENERAL: Medications reviewed. NECK: There is no evidence of thrush. No neck vein distention or HJR noted. HEART: Regular rate and rhythm. LUNGS: Reveal some crackles at the lung bases. No subcutaneous emphysema is noted. No fremitus is noted. ABDOMEN: Soft and nontender. EXTREMITIES: He has no cyanosis, clubbing or edema. LABORATORY DATA: BUN on the was 19 with a low albumin at 2. Legionella antigen from 22 May is unremarkable. QuantiFERON Gold was negative. Beta-2 glucan was less than 31. Chest x-ray yesterday showed improvement in the small apical pneumothorax with continued bilateral parenchymal fibrotic changes. IMPRESSION: 1. Mycobacterium avium-intracellulare. 2. Interstitial lung disease. RECOMMENDATIONS: 1. At this point, I will continue to decrease the oxygen, perhaps to 5 or 4 liters and help prevent drying of his nose and watch his oxygen saturation. 2. Decrease the prednisone. He may be able go down to 15 mg daily, we can taper that fairly quickly over about ten days to two weeks. 3. Continue on the rifampin, Zithromax and ethambutol. 4. I would use the Combivent just p.r.n. now. I had a long talk with the patient in the beginning of the week about his disease. He is fully aware that he has an atypical bacteria that has caused a cystic change in his lung and he remembered the conversation. We discussed it again today. He can follow up with Dr. Velasquez as an outpatient.
--- NOTE | 2016-06-07 07:37 | DIAGNOSTIC IMAGING REPORT ---
CHEST ONE VIEW PORTABLE CLINICAL HISTORY: left sided pneumothorax dyspnea COMPARISON STUDY: 06/06/2016 FINDINGS: Diffuse parenchymal fibrotic change. No significant recurrent pneumothorax. Heart remains top lung is normal in size. IMPRESSION: Stable bilateral chronic fibrotic/infiltrative change. No evidence pneumothorax. Electronically signed by: Jr Foley M.D. 06/07/2016 7:35 AM Dictated Date/Time: 06/07/2016 7:34 AM
[2016-06-07 07:55] LABS: BUN/CREATININE RATIO 24.2 (10-20); CREATININE 0.7 mg/dl (0.60-1.40); POTASSIUM 4.6 mmol/L (3.5-5.1)
[2016-06-07 09:01] VITALS: BP 116/71; PULSE 87; TEMP 37.2; O2SAT 95
[2016-06-07] MEDS: IPRATROPIUM BROMIDE/ALBUTEROL respimat INH INH SCH ×4 (09:05→21:00)
[2016-06-07] MEDS: ARTIFICIAL TEARS OP SOLN OP SCH ×8 (09:05→21:00)
[2016-06-07] MEDS: OLMESARTAN MEDOXOMIL 20 MG TAB PO SCH ×2 (09:05→21:02)
[2016-06-07] MEDS: BOOST VANILLA PO SCH ×6 (09:06→21:00)
[2016-06-07] MEDS: DOCUSATE SODIUM 100 MG CAP PO SCH ×2 (09:06→21:02)
[2016-06-07] MEDS: ASPIRIN 81 MG ECTAB PO SCH (09:06)
[2016-06-07] MEDS: ETHAMBUTOL HCL 400 MG TAB PO SCH ×2 (09:07→21:03)
[2016-06-07] MEDS: RIFAMPIN 300 MG CAP PO SCH ×2 (09:07→21:03)
[2016-06-07] MEDS: CEROVITE ADV FORMULA TAB PO SCH (09:07)
[2016-06-07] MEDS: AZITHROMYCIN 250 MG TAB PO SCH (09:08)
[2016-06-07] MEDS: MoRPHine SULFATE 2.5 MG/0.125 ML UDP PO PRN (09:10)
--- NOTE | 2016-06-07 11:01 | Hospitalist Progress Note ---
Hospitalist Progress Note Date of Service Jun 07, 2016. (Nayely Sharif PA-C) Subjective Pt evaluation today including: conversation w/ patient, conversation w/ family , physical exam, chart review, lab review, conversation w/ employment consultant, review of inpatient medication list Patient continues to be short of breath. No significant difference from yesterday. Productive cough. No fever or chills. Denies any chest pain. Admits to feeling very anxious about his poor state of health. Willing to pursue hospice. Appetite is fair. Additional Comments: 6 system review negative. Please see pertinent positives in the history of present illness section. (Nayely Sharif PA-C) Objective Vital Signs Date Time Temp Pulse Resp B/P Pulse Ox O2 Delivery O2 Flow Rate FiO2 06/07/16 09:01 37.2 87 18 116/71 95 6.0 06/07/16 01:25 99 Nasal Cannula 6.0 06/06/16 23:56 36.4 76 20 156/80 96 Nasal Cannula 6.0 06/06/16 16:00 Nasal Cannula 6.0 06/06/16 15:38 36.4 89 20 124/64 95 Nasal Cannula 6.0 (Nayely Sharif PA-C) Physical Exam General Appearance: + moderate distress (moderate respiratory distress. Chronically ill in appearance.), + cachetic Eyes: EOMI ENT: + pertinent finding (oral mucosa dry. No agitated noted.) Neck: no JVD Respiratory/Chest: + pertinent finding (rhonchorous breath sounds bilaterally. No wheezing auscultated. Crackles at the bases.) Cardiovascular: + tachycardia Abdomen: non tender, soft Extremities: non-tender, no pedal edema Neurologic/Psychiatric: no motor/sensory deficits, alert (possibly slightly confused) Skin: warm/dry (Nayely Sharif PA-C) Laboratory Results 06/07/16 07:00 Test 06/07/16 07:00 Anion Gap 4.0 mmol/L (3-11) Est Creatinine Clear Calc Drug Dose 70.8 ml/min Estimated GFR () 105.5 Estimated GFR (Non- 91.0 BUN/Creatinine Ratio 24.2 (10-20) Calcium Level 9.0 mg/dl (8.5-10.1) Last 24 Hours Test 06/07/16 07:00 Sodium Level 130 mmol/L Potassium Level 4.6 mmol/L Chloride Level 94 mmol/L Carbon Dioxide Level 32 mmol/L Anion Gap 4.0 mmol/L Blood Urea Nitrogen 17 mg/dl Creatinine 0.70 mg/dl Est Creatinine Clear Calc Drug Dose 70.8 ml/min Estimated GFR () 105.5 Estimated GFR (Non- 91.0 BUN/Creatinine Ratio 24.2 Random Glucose 100 mg/dl Calcium Level 9.0 mg/dl (Nayely Sharif PA-C) Assessment and Plan 75-year-old male with an unfortunate history of progressive interstitial lung disease presents to the emergency department with acute on chronic respiratory failure S/P bronchoscopy 05/24 that was uneventful Acute on chronic respiratory failure with hypoxia, multifactorial; severe interstitial lung disease, cavitary lung lesions with MAC infection-->no improvement 05/31: bronchial washings from 05/21 returned as MAC Ethambutol, Azithromycin and Rifampin recommended per ID-->pending meeting with X today. Will likely d/c ABX Long discussion today with Pt and Alyssia Stubbs from Palliative care. Pt is agreeable for hospice care Add Roxanol and ativan for comfort L pneumothorax/pneumomediastinum likely from ruptured bleb-stable no tube recommended stable no further imaging Oral thrush: continue Nystatin S/S QID-->much improved Continue fluconazole 100 mg daily finish course add magic swizzle Hypertension continue Olmesartan at 10 mg twice daily Hypothyroidism Continue Synthroid 50 g daily Restless leg syndrome Continue Remeron 15 mg at night Weight loss possibly due to infection on top of severe pulm disease Hyperlipidemia Discontinue statin DVT prophylaxis -Heparin 5000 units subcutaneous BID -TEDS, SCDs CODE STATUS -LEVEL V DO NO RESUSCITATE DISPO Still hoping for [place] with hospice care in near future (Nayely Sharif PANeoC) Attending Attestation: Pt seen/examined, chart reviewed, care plan d/w JUSTUS Sharif. I agree w/ the hinojosa components of her documentation. During my visit he was very sleepy. He was awake enough to tell me that he was "ok." He was agreeable to [facility] placement. His ex- who serves as POA came to visit today and gave green light for hospice care. [facility] agency came to evaluate him and have accepted him into their program. VSS o2 sats stable on NC O2 gen - somnolent lungs - course BS b/l with extensive crackles in most lung segments, tachypnea A/P: 1. acute hypoxic resp failure 2nd to DENAE infection 2. chronic resp failure 2nd to progressive ILD 3. severe protein calorie malnutrition 4. hyponatremia - suspect SIADH due to #1 5. failure to thrive 6. palliative care status agree 100% with hospice will make decision tomorrow about starting hospice inpatient here OR allowing him to return to [facility] and receiving hospice there Stephon Sanchez MD (Stephon Sanchez MD)
--- NOTE | 2016-06-07 11:06 | Palliative Care Progress Note ---
Palliative Care Progress Note Date of Service Jun 07, 2016. Subjective Pt evaluation today including: conversation w/ patient, physical exam, chart review, conversation w/ bank consultant (Nayely Sharif PA-C), review of inpatient medication list Pain: 0/10 PO Intake: tolerating small amounts of soft foods and liquids. taking Boost Voiding: rivers catheter in place -Spoke with patient in room 400 today, Nayely Sharif PA-C present. -Patient feels the same as yesterday. Still weak, still short of breath. Has some anxiety. No pain. -I think there is a level of forgetfulness/confusion. First stated that Roxanol made him hallucinate, but then five minutes later wanted to take it for his SOB. He reported to nursing staff yesterday that it worked for him. -Discussed goals of care. Patient agrees that he would like to be comfort measures only. He would be okay with stopping abx treatment for MAC infection. He understands his prognosis is poor. -He'd like to get back to [facility] on hospice. Review of Systems Constitutional: + fatigue, + weakness Respiratory: + dyspnea at rest, + shortness of breath Cardiac: No chest pain, No edema Abdomen: No nausea, No pain, No vomiting Male : No problem reported Psychiatric: + anxiety Objective Vital Signs Date Time Temp Pulse Resp B/P Pulse Ox O2 Delivery O2 Flow Rate FiO2 06/07/16 09:01 37.2 87 18 116/71 95 6.0 06/07/16 01:25 99 Nasal Cannula 6.0 06/06/16 23:56 36.4 76 20 156/80 96 Nasal Cannula 6.0 06/06/16 16:00 Nasal Cannula 6.0 06/06/16 15:38 36.4 89 20 124/64 95 Nasal Cannula 6.0 Physical Exam General Appearance: + mild distress (SOB), + cachetic, + thin Neck: no JVD Respiratory/Chest: + decreased breath sounds, + accessory muscle use, + rhonchi (coarse), + pertinent finding (SOB at rest) Cardiovascular: regular rate, rhythm, no edema, + normal peripheral pulses Abdomen: normal bowel sounds, non tender, soft Neurologic/Psychiatric: alert, oriented x 3 (some forgetfulness), + depressed affect Laboratory Results Last 24 Hours Test 06/07/16 07:00 Sodium Level 130 mmol/L Potassium Level 4.6 mmol/L Chloride Level 94 mmol/L Carbon Dioxide Level 32 mmol/L Anion Gap 4.0 mmol/L Blood Urea Nitrogen 17 mg/dl Creatinine 0.70 mg/dl Est Creatinine Clear Calc Drug Dose 70.8 ml/min Estimated GFR () 105.5 Estimated GFR (Non- 91.0 BUN/Creatinine Ratio 24.2 Random Glucose 100 mg/dl Calcium Level 9.0 mg/dl Assessment and Plan Problem list: Weakness Shortness of breath Cachexia/weight loss/failure to thrive Pain, chest Left pneumothorax Thrush MAC infection Goals of care (Z51.5) Palliative care plan: -Ex- is coming in this afternoon to see patient. Will try to be there with Dr. Sanchez and Nayely RENDON to speak with everyone together. -Patient would like to be [employer] [employer] [facility] at this point. -Goal is for comfort and to get back to [facility] on hospice. SOB I think should be a little more under control before transfer. I think patient will tolerate transfer poorly at this time. If he does have a very strong wish to get back to [facility] after discussion this afternoon, I would honor his wishes. -Start low dose lorazepam for anxiety- ordered by JUSTICE. Palliative Performance Scale: 20 % Continued [facility] stay due to: multiple IV medications needed Discharge planning: uncertain
[2016-06-07] MEDS ORDERED: NURSING VERBAL MED ORDER ONE (12:45)
[2016-06-07] MEDS: LORAZEPAM 0.5 MG TAB PO PRN (12:51)
[2016-06-07] MEDS ORDERED: LORAZEPAM 0.5 MG TAB PO PRN (14:00)
[2016-06-07 16:03] VITALS: BP 121/65; PULSE 68; TEMP 36.6; O2SAT 98
[2016-06-07] MEDS: MIRTAZAPINE TAB 15 MG TAB PO SCH (21:04)
[2016-06-07 23:28] VITALS: BP 123/69; PULSE 72; TEMP 36.6; O2SAT 93
[2016-06-08] MEDS: LIDOCAINE HCL 2% VISCOUS SOLN 60 ML, DiphenhydrAMINE HCL SYRUP 150 MG, ALUMINUM/MAGNESI... MT SCH ×16 (00:09→16:38)
[2016-06-08] MEDS: LORAZEPAM 0.5 MG TAB PO PRN (01:24)
[2016-06-08] MEDS: LEVOTHYROXINE 50 MCG TAB PO SCH (06:07)
[2016-06-08 07:48] VITALS: BP 99/58; PULSE 89; TEMP 37.3; O2SAT 97
[2016-06-08 07:53] VITALS: BP 99/58; PULSE 89; TEMP 37.3; O2SAT 97
[2016-06-08] MEDS ORDERED: SODIUM CHLORIDE 1 GM TAB PO SCH (08:00)
[2016-06-08] MEDS: CEROVITE ADV FORMULA TAB PO SCH (08:00)
[2016-06-08] MEDS: DOCUSATE SODIUM 100 MG CAP PO SCH (08:00)
[2016-06-08] MEDS: OLMESARTAN MEDOXOMIL 20 MG TAB PO SCH (08:03)
[2016-06-08] MEDS: BOOST VANILLA PO SCH ×4 (08:03→14:00)
[2016-06-08] MEDS: IPRATROPIUM BROMIDE/ALBUTEROL respimat INH INH SCH ×3 (08:03→16:36)
[2016-06-08] MEDS: ARTIFICIAL TEARS OP SOLN OP SCH ×6 (08:03→16:37)
[2016-06-08] MEDS: ETHAMBUTOL HCL 400 MG TAB PO SCH (08:05)
[2016-06-08] MEDS: RIFAMPIN 300 MG CAP PO SCH (08:05)
[2016-06-08] MEDS: ASPIRIN 81 MG ECTAB PO SCH (08:05)
[2016-06-08] MEDS: AZITHROMYCIN 250 MG TAB PO SCH (08:06)
[2016-06-08] MEDS: MoRPHine SULFATE 2.5 MG/0.125 ML UDP PO PRN ×2 (08:20→10:10)
[2016-06-08] MEDS ORDERED: NURSING VERBAL MED ORDER ONE ×2 (10:00→11:30)
[2016-06-08] MEDS ORDERED: BISACODYL 10 MG SUPP PR STA (11:13)
[2016-06-08] MEDS: MoRPHine SULFATE 4 MG/ML 1 ML CARP\\VIAL ONE ×2 (11:18→11:56)
--- NOTE | 2016-06-08 11:25 | Hospitalist Progress Note ---
Hospitalist Progress Note Date of Service Jun 08, 2016. (Nayely Sharif PA-C) Subjective Pt evaluation today including: conversation w/ patient, physical exam, chart review, lab review, review of inpatient medication list Patient reports intermittent chest pain this morning. It is a sharp, stabbing sensation. He has had this several times over the last few weeks. He reports his breathing is about the same as yesterday. It continues to be labored. He continues with a productive cough. He denies any fever or chills. Denies any nausea. He does note that he has not had a bowel movement for several days. No abdominal pain. Appetite is fair. Additional Comments: 6 system review negative. Please see pertinent positives in the history of present illness section. (Nayely Sharif PA-C) Objective Vital Signs Date Time Temp Pulse Resp B/P Pulse Ox O2 Delivery O2 Flow Rate FiO2 06/08/16 07:53 37.3 89 20 99/58 97 Nasal Cannula 6.0 06/08/16 07:48 37.3 89 20 99/58 97 Nasal Cannula 6.0 06/08/16 00:00 Nasal Cannula 6.0 06/07/16 23:28 36.6 72 18 123/69 93 Room Air 06/07/16 16:03 36.6 68 18 121/65 98 Nasal Cannula 6.0 06/07/16 16:00 Nasal Cannula 6.0 (Nayely Sharif PA-C) Physical Exam General Appearance: + moderate distress (moderate respiratory distress. Uncomfortable in appearance.) ENT: + pertinent finding (oral mucosa dry. No eczema.) Neck: no JVD Respiratory/Chest: + pertinent finding (crackles particularly at the right base. No significant wheezing noted. Tachypneic.) Cardiovascular: + pertinent finding (occasionally irregular. Somewhat tachycardic. No murmur auscultated.) Abdomen: non tender, soft, + pertinent finding (bowel sounds present, but hypoactive.) Extremities: no pedal edema Neurologic/Psychiatric: + pertinent finding (appears very fatigued. No focal weakness noted.) Skin: warm/dry (Nayely Sharif PA-C) Assessment and Plan 75-year-old male with an unfortunate history of progressive interstitial lung disease presents to the emergency department with acute on chronic respiratory failure Acute on chronic respiratory failure with hypoxia, multifactorial; severe interstitial lung disease, cavitary lung lesions with MAC infection-->no improvement S/P bronchoscopy 05/24 that was uneventful 05/31: bronchial washings from 05/21 returned as MAC Ethambutol, Azithromycin and Rifampin recommended per ID-->d/c ABX pt is going to go inpt hospice here morphine gtt ativan and roxanol prn L pneumothorax/pneumomediastinum likely from ruptured bleb-stable no tube recommended no further imaging Oral thrush: d/c fluconazole continue magic swizzle prn for comfort Hypertension d/c all meds except for comfort Hypothyroidism Continue Synthroid 50 g daily Restless leg syndrome Continue Remeron 15 mg at night Weight loss possibly due to infection on top of severe pulm disease Hyperlipidemia Discontinue statin DVT prophylaxis d/c heparin -TEDS, SCDs CODE STATUS -LEVEL V DO NO RESUSCITATE DISPO change to inpt hospice here (Nayely Sharif, PANeoC) Attending Attestation: Pt seen/examined, chart reviewed, care plan d/w JUSTUS Sharif. I agree w/ the hinojosa components of her documentation. Pt very sob today and having pleuritic chest pain. now requiring IV morphine to remain comfortable. He is agreeable to hospice but wishes to do such at the hospital not back at [facility]. VSS sats unchanged gen - uncomfortable lungs - tachypnea, b/l crackles (extensive), retractions A/P: acute/chronic resp failure advanced ILD DENAE infection patient to be discharged and then re-admitted under inpatient hospice status Stephon Sanchez MD (Stephon Sanchez MD)
[2016-06-08] MEDS ORDERED: MoRPHine SULFATE 4 MG/ML 1 ML CARP\\VIAL IV PRN (11:30)
[2016-06-08 15:14] VITALS: BP 92/56; PULSE 79; TEMP 36.5; O2SAT 96
--- NOTE | 2016-06-11 11:07 | Discharge Summary ---
Discharge Summary Date of Service Jun 11, 2016. Discharge Summary Admission Date: May 20, 2016 at 19:26 Discharge Date: Jun 08, 2016 Discharge Disposition: Acute care facility (inpatient hospice at [facility]) Principal Diagnosis: acute/chronic hypoxic respiratory failure Problems/Secondary Diagnoses: 1. advanced/end-stage ILD 2. DENAE infection 3. severe protein calorie malnutrition 4. failure to thrive 5. thrush 6. hypothyroidism 7. peripheral neuropathy 8. hyperlipidemia 9. pneumomediastinum 10. left-sided pneumothorax 11. h/o HTN 12. BPH Procedures: 1. CT chest x 2 2. bronchoscopy - Jesus Velasquez MD Consultations: pulmonary, ID, PT, OT, and palliative care Discharge Exam Physical Exam: General Appearance: + mild distress, + cachetic ENT: + pertinent finding (resolved thrush) Neck: no JVD Respiratory/Chest: + respiratory distress, + decreased breath sounds, + accessory muscle use, + crackles (extensive b/l) Cardiovascular: regular rate, rhythm, no gallop, no murmur, normal peripheral pulses Abdomen / GI: normal bowel sounds, non tender, soft, no organomegaly Extremities: no pedal edema Neurologic/Psychiatric: + depressed affect Hospital Course HISTORY OF PRESENT ILLNESS: The patient is a pleasant 75-year-old male that was sent to the emergency department by his automotive brake adjuster office today. The patient has a history of pulmonary fibrosis. The disease seems to be progressing fairly quickly. The patient reports wearing 2 L of oxygen per nasal cannula at home at all times. His shortness of breath has progressively gotten worse over the last 2 months. He also notes approximately 60 pound weight loss within the last year. He reports his appetite has been very poor. He does complain of a chronic cough. He denies any hemoptysis. The cough is usually productive with sometimes white and sometimes green sputum. He denies any fever or chills. He denies any recent changes in his medications. During the patient's automotive brake adjuster visit today, he was found to be significantly hypoxic in the 80s reportedly on 5 L per nasal cannula. This prompted his visit to the emergency department. He is currently saturating at 93% on 2 L. The patient received a DuoNeb treatment in the emergency department with minimal improvement. HOSPITAL COURSE: The patient's protracted hospitalization was marked by worsening of his pulmonary status despite significant medical efforts and treatment. He underwent bronchoscopy by Dr. Jesus Velasquez early on in his stay and AFB cultures from the bronchoscopy ultimately grew DENAE infection. He was started on a 3-drug treatment for the DENAE by pulmonary/infectious disease. Despite appropriate treatment, steroids, and other supportive care measures his status worsened. His stay was complicated by the development of a left-sided pneumothorax and worsening pneuomediastinum. In light of his advanced, end-stage ILD/pulmonary fibrosis, the DENAE infection, and ongoing severe protein calorie malnutrition the palliative care team was consulted. He ultimately was agreeable to palliative care and hospice. On 06/08/16 the patient was transitioned to inpatient hospice status after "[facility]" company accepted him into their program. Total Time Spent: Greater than 30 minutes This includes examination of the patient, discharge planning, medication reconciliation, and communication with other providers. Discharge Instructions Please refer to the electronic Patient Visit Report (Discharge Instructions) for additional information. Follow-Up with Hospice Additional Copies To Abraham Bermeo M.D.
--- NOTE | 2016-06-11 18:49 | Bronchoscopy Procedure Note ---
Bronchoscopy Procedure Note Date: 05/24/2016 Procedure: Bronchoscopy, conscious sedation, bronchial lavage right middle Consent: Obtained through the patient placed into the chart Preprocedural diagnosis: necrotizing pneumonia Postprocedural diagnosis: Necrotizing pneumonia Start time: Please refer to nursing notes End time: Please refer to nursing notes Total time: 10 minutes Analgesia: 2% liquid lidocaine: Via nebulizer 4% gel lidocaine: Via right naris 2% liquid lidocaine: Via bronchoscopy Sedation: Versed IV: please refer to nursing documentation Fentanyl IV: Please refer to nursing documentation Procedure: The Olympus video bronchoscope was used for this procedure Right bronchial tree: Right middle lobe: heavy mucus secretions appreciated Findings: Diffuse mucus secretions throughout right bronchial tree Left bronchial tree: Findings: Diffuse mucus secretions throughout the left bronchial tree Bronchial alveolar lavage: Right middle lobe Complications: None Follow-up: [facility]
[2016-06-12] MEDS ORDERED: RXNS15 PO (09:51)
[2016-06-12] MEDS ORDERED: ATV1 SL (09:51)
[2016-06-12] MEDS ORDERED: ATROPO PEG (09:51)
[2016-06-12] MEDS ORDERED: DRGTP12 TD (09:51)
== END 2016-06-08 18:57 | disposition hospice, inpatient (51) | DRG 166 ==
LOC: ENRESERVTM → ENRESERVDT → C.EDB 13:26 → C.MS4W 19:26 → C.4E 05-21 21:38
PROVIDERS: ADMIT Family Medicine; ATTEND Internal Medicine
PROC: 0B9D8ZX Drainage of Right Middle Lung Lobe, Via Natural or Artificial Opening Endoscopic, Diagnostic (ICD-10-PCS; principal; 2016-05-24)
DX: A31.0 Pulmonary mycobacterial infection (principal); J96.21 Acute and chronic respiratory failure with hypoxia; B37.0 Candidal stomatitis; J93.9 Pneumothorax, unspecified; E43 Unspecified severe protein-calorie malnutrition; G62.9 Polyneuropathy, unspecified; J84.10 Pulmonary fibrosis, unspecified; Z79.82 Long term (current) use of aspirin; Z88.2 Allergy status to sulfonamides; I10 Essential (primary) hypertension; N40.0 Benign prostatic hyperplasia without lower urinary tract symptoms; G25.81 Restless legs syndrome; J47.9 Bronchiectasis, uncomplicated; E78.5 Hyperlipidemia, unspecified; M81.0 Age-related osteoporosis without current pathological fracture; Z51.5 Encounter for palliative care; R62.7 Adult failure to thrive; E03.9 Hypothyroidism, unspecified; J98.2 Interstitial emphysema

== ENCOUNTER → 2016-05-20 | Outpatient (CLI) | payer BC ==
--- NOTE | 2016-05-20 12:51 | DIAGNOSTIC IMAGING REPORT ---
TWO VIEW CHEST CLINICAL HISTORY: Dyspnea. FINDINGS: PA and lateral chest radiographs are compared to study dated 12/25/2015 and correlated with chest CT dated 12/21/2015. The heart is top normal in size and there is atherosclerotic calcification of the thoracic aorta. Findings of extensive chronic interstitial lung disease with multifocal bronchiectasis, cystic change, multifocal airspace opacities, and significant pleural thickening at the lung bases has modestly progressed from previous. There is no definite superimposed airspace consolidation. No large pleural effusion is seen. There is no pneumothorax. The skeletal structures are osteopenic. The bony thorax appears intact. Degenerative change and hyperkyphosis are noted in the thoracic spine. IMPRESSION: 1. Findings of advanced chronic interstitial lung disease with multiple foci of bronchiectasis, nodular airspace opacities, and cystic change appears somewhat progressed from the 12/25/2015 examination. 2. There is no clear evidence of superimposed airspace consolidation or pleural effusion. Electronically signed by: Flo Mosqueda M.D. 05/20/2016 12:50 PM Dictated Date/Time: 05/20/2016 12:47 PM
--- NOTE | 2016-06-06 08:42 | Bronchoscopy Procedure Note ---
Bronchoscopy Procedure Note Date: 05/24/2016 Procedure: Bronchoscopy, conscious sedation, bronchial lavage right middle Consent: Obtained through the patient placed into the chart Preprocedural diagnosis: necrotizing pneumonia Postprocedural diagnosis: Necrotizing pneumonia Start time: Please refer to nursing notes End time: Please refer to nursing notes Total time: 10 minutes Analgesia: 2% liquid lidocaine: Via nebulizer 4% gel lidocaine: Via right naris 2% liquid lidocaine: Via bronchoscopy Sedation: Versed IV: please refer to nursing documentation Fentanyl IV: Please refer to nursing documentation Procedure: The Olympus video bronchoscope was used for this procedure Right bronchial tree: Right middle lobe: heavy mucus secretions appreciated Findings: Diffuse mucus secretions throughout right bronchial tree Left bronchial tree: Findings: Diffuse mucus secretions throughout the left bronchial tree Bronchial alveolar lavage: Right middle lobe Complications: None Follow-up: [facility]
== END | disposition home or self-care (01) ==
LOC: C.RAD1850 12:00
PROVIDERS: ATTEND Physician Assistant Medical
DX: R06.02 Shortness of breath (principal)

== ENCOUNTER 2016-06-08 18:58 | Inpatient (IN) | payer OTHER ==
[~2016-06-08] VITALS: Ht 182.9 cm; Wt 56.8 kg
[~2016-06-08 18:58] MED LIST changes: +ACET-1311 PO; -ATRIN INH; -DIAZ2TAB PO; +DOCU-94 PO; +IPRA1AER2 INH; -Levalbuterol INH; +SYN50 PO
[2016-06-08] MEDS ORDERED: MAGNESIUM HYDROXIDE SUSP 30 ML UDC PO PRN (19:30)
[2016-06-08] MEDS ORDERED: ALUMINUM/MAGNESIUM/SIMETH (MAALOX MAX) 30 ML UDC PO PRN (19:30)
[2016-06-08] MEDS ORDERED: LORAZEPAM 2 MG/ML 1 ML VIAL IV PRN (19:30)
[2016-06-08] MEDS ORDERED: ONDANSETRON INJ 2 MG/ML 2 ML VIAL IV PRN (19:30)
[2016-06-08] MEDS ORDERED: ACETAMINOPHEN 325 MG TAB PO PRN (19:30)
[2016-06-08] MEDS ORDERED: POLYETHYLENE (MIRALAX) 17 GM PACK PO PRN (19:30)
[2016-06-08] MEDS ORDERED: ALBUT/IPRATROP 3MG/0.5MG NEB 3 ML VIAL INH PRN (19:45)
--- NOTE | 2016-06-08 19:59 | History and Physical ---
History & Physical Date & Time of Service: Jun 08, 2016 at 19:37 Chief Complaint: Hospice Primary Care Physician: Abraham Bermeo M.D. History of Present Illness Source: patient, hospital records 75yo male with chronic respiratory failure on home O2 secondary to interstitial lung disease who presented on 05/20/16 to [facility] as a direct admission from the [facility] pulmonary office. During that office visit he was significantly hypoxic with O2 sats in the low 80s despite his NC O2. Following admission he was presumed to have pneumonia in the setting of his advanced interstitial lung disease. He was started on broad-spectrum antibiotics and steroids along with supportive care measures. 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 He was begun on a 3-drug regimen under the guidance of infectious disease and pulmonary. During his 2+ week stay the patient did very poorly and in fact his respiratory status worsened despite maximal medical efforts. In the latter half of his stay a palliative care consultation was obtained and hospice/palliative care was discussed. After multiple discussions the patient was agreeable to such. On 06/08/16 the patient's overall status worsened, and he began to require IV morphine for significant dyspnea and chest pain. "[facility]" was consulted, and they agreed to have him placed under general inpatient hospice status at [facility] for symptom control. Past Medical/Surgical History PMH: 1. chronic respiratory failure 2nd to ILD, on home O2 2. acute hypoxic respiratory failure 2nd to DENAE infection 3. restless legs syndrome 4. severe protein calorie malnutrition 5. failure to thrive 6. peripheral neuropathy 7. interstitial lung disease 8. h/o HTN 9. BPH 10. recent left-sided pneumothorax and pneumomediastinum PSH: 1. Status post appendectomy 2. Status post tonsillectomy 3. cataract surgery bilaterally 4. retinal repair 5. 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) Multi-Drug Resistant Organisms History of MDRO: Yes Type of MDRO: MRSA Allergies Coded Allergies: Sulfa Antibiotics (Verified Allergy, Unknown, "SULFA DRUGS", 05/20/16) Home Medications Scheduled Aspirin (Aspirin 81), 81 MG PO QAM Azelastine Hcl (Astepro), 2 SPRY FERMIN DAILY Calcium/Vitamin D (Os-Tylor 500 Plus D), 1 TAB PO QAM Cholecalciferol (Vitamin D), 1,000 UNIT PO DAILY Ipratropium-Albuterol (Combivent Respimat), 1 PUFFS INH QID Levothyroxine Sodium (Synthroid), 50 MCG PO QAM Mirtazapine (Remeron), 15 MG PO HS Multivitamin (Multivitamin), 1 TAB PO QAM Olmesartan Medoxomil (Benicar), 10 MG PO BID Polyethylene Glycol-Propylene (Systane Ultra), 1 DROPS OP QID Simvastatin (Zocor), 10 MG PO HS Scheduled PRN Acetaminophen (Tylenol), 325 MG PO Q6 PRN for Pain Docusate Sodium (Colace), 100 MG PO BID PRN for Constipation Review of Systems unable to obtain 2nd to somnolence Physical Exam General Appearance: + moderate distress (tachypnea, retractions), + cachetic Head: normocephalic, atraumatic ENT: pharynx normal Neck: no JVD Respiratory/Chest: + respiratory distress, + accessory muscle use, + crackles ( extensive, nearly all lung segments) Cardiovascular: no gallop, no murmur, normal peripheral pulses, + tachycardia Abdomen/GI: normal bowel sounds, non tender, soft, no organomegaly Extremities/Musculoskelatal: no pedal edema Neurologic/Psych: + pertinent finding (somnolent) Skin: + pallor Impression Assessment and Plan 75yo male with acute/chronic hypoxic respiratory failure due to DENAE infection in the setting of end-stage/progressive interstitial lung disease. Now being admitted to inpatient hospice status for comfort measures. 1. pain control/dyspnea - morphine 4mg IV q1h prn; may need to transition to morphine infusion soon if unable to keep comfortable with PRN morphine. 2. agitation/anxiety - ativan prn. 3. scopalamine patch q72h. 4. regular diet, if desired and/or tolerated. 5. NC O2 6 liters continuously. 6. duonebs q6h if desired and/or tolerated. Other comfort measures/palliative care measures as needed. The patient's ex- and POA, . Marline Ramos, was updated by phone today and was in agreement with the above plan. I appreciate [facility] for their assistance. Stephon Sanchez MD Level of Care Hospice Resuscitation Status DO NOT RESUSCITATE VTE Prophylaxis VTE Risk Assessment Done? Y/N: Yes Risk Level: Not Assessed Given or contraindicated: Treatment not indicated Social Service Consult None Apply Additional Copies To Pro,Abraham Wright M.D.
[2016-06-08 20:00] VITALS: Ht 182.9 cm; Wt 56.8 kg
[2016-06-08] MEDS: MIRTAZAPINE TAB 15 MG TAB PO SCH (20:49)
[2016-06-08] MEDS: SCOPOLAMINE 1.5 MG TDSY TD SCH (20:50)
[2016-06-08] MEDS: CHECK SCOPOLAMINE PATCH PLACEMENT SCH (23:53)
[2016-06-09] MEDS: ALBUT/IPRATROP 3MG/0.5MG NEB 3 ML VIAL INH SCH ×3 (02:00→15:00)
[2016-06-09 07:29] VITALS: BP 118/75; PULSE 78; TEMP 36; O2SAT 100
[2016-06-09] MEDS: CHECK SCOPOLAMINE PATCH PLACEMENT SCH ×3 (08:00→23:43)
--- NOTE | 2016-06-09 09:13 | Hospitalist Progress Note ---
Hospitalist Progress Note Date of Service Jun 09, 2016. (Nayely Sharif, JUSTICE) Subjective Pt evaluation today including: conversation w/ patient, physical exam, chart review, review of inpatient medication list Patient thinks that he is doing okay today. Chest pain was bad earlier this morning. It is now better. Pain meds seem to be helping with the pain. Denies any nausea. Tolerating his diet. Breathing is about the same as yesterday. Still with a cough that is mildly productive. No fever or chills. Denies any abdominal pain. Thinks that he had a bowel movement yesterday. Additional Comments: 6 system review negative. Please see pertinent positives in the history of present illness section. (Nayely Sharif, JUSTICE) Objective Vital Signs Date Time Temp Pulse Resp B/P Pulse Ox O2 Delivery O2 Flow Rate FiO2 06/09/16 07:29 36.0 78 20 118/75 100 Nasal Cannula 6.0 06/09/16 00:00 Nasal Cannula 6.0 06/08/16 20:00 Nasal Cannula 6.0 (Nayely Sharif, MCKINLEYC) Physical Exam General Appearance: + mild distress (mild respiratory distress) Eyes: EOMI Respiratory/Chest: + pertinent finding (crackles particularly at the left base. Tachypneic. Rhonchorous breath sounds throughout.) Cardiovascular: + pertinent finding (occasionally irregular. No murmur.) Abdomen: non tender, soft, + pertinent finding (bowel sounds present, but hypoactive) Extremities: non-tender, no pedal edema Neurologic/Psychiatric: alert (alert and answering questions appropriately) Skin: warm/dry (Nayely Sharif, MCKINLEYC) Assessment and Plan 75-year-old male with a history of end-stage pulmonary disease: Pulmonary fibrosis, Mac infection transition to inpatient hospice on 06/08 Acute on chronic respiratory failure secondary to pulmonary fibrosis and Mac infection -Continue hospice care/medications: Scopolamine patch, morphine, Ativan and Tylenol prn DISPO -Inpt with hospice 365 (Nayely Sharif, MCKINLEYC) Attending Attestation: Pt seen/examined, chart reviewed, care plan d/w JUSTUS Sharif. I agree w/ the hinojosa components of her documentation. Pt more awake today. Chest pain is better. Breathing more comfortable. Still declines to return to [facility]. exam - lungs - no change from previous; still with tachypnea and mild retractions A/P: acute/chronic resp failure advanced/end-stage ILD DENAE infection inpatient hospice status continue current comfort measures/palliative care pathway Kirsty CONTRERAS MD (Stephon Contreras MD)
[2016-06-09] MEDS: MoRPHine SULFATE 4 MG/ML 1 ML CARP\\VIAL IV PRN ×2 (12:36→15:59)
[2016-06-09 14:41] VITALS: BP 94/60; PULSE 76; TEMP 36.3; O2SAT 97
[2016-06-09 15:00] VITALS: PULSE 71; O2SAT 98
[2016-06-09 15:32] VITALS: PULSE 71; O2SAT 98
[2016-06-09] MEDS ORDERED: GUAIFENESIN/CODEINE 100MG/10MG 5ML UDC PO PRN (18:00)
[2016-06-09] MEDS ORDERED: LORAZEPAM INJ 1 MG in SYRINGE 0.5 ML IV PRN (18:45)
[2016-06-09] MEDS: MIRTAZAPINE TAB 15 MG TAB PO SCH (21:00)
[2016-06-10] MEDS: CHECK SCOPOLAMINE PATCH PLACEMENT SCH ×3 (07:30→23:21)
[2016-06-10] MEDS: ALBUT/IPRATROP 3MG/0.5MG NEB 3 ML VIAL INH SCH ×4 (07:36→23:11)
[2016-06-10 07:37] VITALS: PULSE 78; O2SAT 98
--- NOTE | 2016-06-10 08:42 | Progress Note ---
Subjective Date of Service: Jun 10, 2016. Subjective this pt states he was not feeling good but could no be specific on why, states he is coughing and that is his worse issue. non productive and overall improved from admission Problem List Medical Problems: (1) Change in mental status Status: Acute (2) Pneumonia Status: Acute (3) Weakness Status: Acute Review of Systems Constitutional: + fatigue, + weakness, No chills, No fever Respiratory: + cough, + dyspnea on exertion, + shortness of breath, No sputum Cardiac: No chest pain, No edema Abdomen: No nausea, No pain, No vomiting Male : No dysuria, No urinary frequency Psychiatric: No anhedonism, No depression symptoms Objective Vital Signs Date Time Temp Pulse Resp B/P Pulse Ox O2 Delivery O2 Flow Rate FiO2 06/10/16 07:37 78 20 98 Nasal Cannula 5.0 06/10/16 00:00 Nasal Cannula 5.0 06/09/16 20:00 Nasal Cannula 5.0 06/09/16 16:00 Nasal Cannula 5.0 06/09/16 15:00 71 22 98 Nasal Cannula 5.0 06/09/16 14:41 36.3 76 24 94/60 97 Nasal Cannula 5.0 Physical Exam General Appearance: + mild distress, + cachetic Respiratory/Chest: + respiratory distress, + decreased breath sounds, + accessory muscle use, + rales Cardiovascular: regular rate, rhythm, + systolic murmur Abdomen: normal bowel sounds, non tender, soft Extremities: no calf tenderness, + pedal edema Neurologic/Psychiatric: alert, oriented x 3 Assessment and Plan 75-year-old male with a history of end-stage pulmonary disease: Pulmonary fibrosis, Mycobacterial jaiden infection, poa, transition to inpatient hospice on 06/08 Acute on chronic respiratory failure secondary to pulmonary fibrosis and Dania infection symptom control: Scopolamine patch, morphine, Ativan and Tylenol prn, will try prn phenergan syrup for cough DISPO,PT is very unclear on his goals of this stay today, he looks such that transition to a non acute setting may be best approached
[2016-06-10] MEDS: MoRPHine SULFATE 4 MG/ML 1 ML CARP\\VIAL IV PRN ×2 (11:39→14:15)
[2016-06-10 15:58] VITALS: PULSE 75; O2SAT 96
[2016-06-10] MEDS: MIRTAZAPINE TAB 15 MG TAB PO SCH (20:45)
[2016-06-10 23:11] VITALS: PULSE 80; O2SAT 95
[2016-06-11 07:05] VITALS: PULSE 117; O2SAT 92
[2016-06-11] MEDS: ALBUT/IPRATROP 3MG/0.5MG NEB 3 ML VIAL INH SCH ×3 (07:51→23:29)
[2016-06-11] MEDS: CHECK SCOPOLAMINE PATCH PLACEMENT SCH ×3 (08:33→23:24)
[2016-06-11] MEDS: MoRPHine SULFATE 4 MG/ML 1 ML CARP\\VIAL IV PRN ×2 (08:33→23:58)
[2016-06-11] MEDS: SCOPOLAMINE 1.5 MG TDSY TD SCH (08:36)
[2016-06-11] MEDS ORDERED: LORAZEPAM 1 MG TAB SL PRN (10:15)
[2016-06-11] MEDS ORDERED: MoRPHine SULFATE 15 MG/0.75 ML UDP PO PRN (10:15)
[2016-06-11] MEDS ORDERED: FENTANYL PATCH REMOVE & WASTE SCH (11:59)
[2016-06-11] MEDS ORDERED: DEXTROMETHORPHAN POLYMR COMPLX 30 MG/5 ML UDP PO PRN (12:00)
[2016-06-11] MEDS ORDERED: COUGH DROP (SUGAR FREE) LOZ 24 LOZ/1 BOX PO PRN (12:00)
[2016-06-11] MEDS ORDERED: FENTANYL 12 MCG/HR TDSY TD SCH (12:00)
--- NOTE | 2016-06-11 14:36 | Progress Note ---
Subjective Date of Service: Jun 11, 2016. Subjective pt was agitated this am with air hunger and was given ativan and pain medicine upon my eval he was sedate but comfortable, aroused to stimuli but easily fell back to sleep Problem List Medical Problems: (1) Change in mental status Status: Acute (2) Pneumonia Status: Acute (3) Weakness Status: Acute Review of Systems Constitutional: + weakness, No chills, No fever medicated and now lethargic preventing ROS Objective Vital Signs Date Time Temp Pulse Resp B/P Pulse Ox O2 Delivery O2 Flow Rate FiO2 06/11/16 07:05 117 18 92 Nasal Cannula 3.0 06/11/16 00:00 Nasal Cannula 5.0 06/10/16 23:11 80 18 95 Nasal Cannula 3.0 06/10/16 19:51 Nasal Cannula 5.0 06/10/16 16:00 Nasal Cannula 5.0 06/10/16 15:58 75 20 96 Nasal Cannula 3.0 Physical Exam General Appearance: + moderate distress, + cachetic Respiratory/Chest: + respiratory distress, + decreased breath sounds, + accessory muscle use, + rales Cardiovascular: regular rate, rhythm, + systolic murmur Abdomen: non tender, soft Assessment and Plan 75-year-old male with a history of end-stage pulmonary disease: Pulmonary fibrosis, Mycobacterial jaiden infection, poa, transition to inpatient hospice on 06/08 Acute on chronic respiratory failure secondary to pulmonary fibrosis and Dania infection symptom control: Scopolamine patch, adding fentanyl and oral morphine elixir with SL ativan in hopes of transition to home morphine, Ativan and Tylenol prn, will try prn phenergan syrup for cough DISPO,PT is very unclear on his goals of this stay today, he looks such that transition to a non acute setting may be best approached unless comfort cannot be achieved
[2016-06-11 14:47] VITALS: PULSE 93; O2SAT 92
[2016-06-11] MEDS: CHECK FENTANYL PATCH PLACEMENT SCH ×2 (16:12→23:23)
[2016-06-11 20:00] VITALS: O2SAT 92
[2016-06-11] MEDS: MIRTAZAPINE TAB 15 MG TAB PO SCH ×2 (20:46→20:49)
[2016-06-11 23:29] VITALS: PULSE 93; O2SAT 93
[2016-06-12] VITALS: O2SAT 92
[2016-06-12 08:11] VITALS: PULSE 92; O2SAT 98
[2016-06-12] MEDS: CHECK SCOPOLAMINE PATCH PLACEMENT SCH (08:17)
[2016-06-12] MEDS: CHECK FENTANYL PATCH PLACEMENT SCH (08:17)
[2016-06-12] MEDS: ALBUT/IPRATROP 3MG/0.5MG NEB 3 ML VIAL INH SCH (08:26)
[2016-06-12] MEDS ORDERED: RXNS15 PO (09:51)
[2016-06-12] MEDS ORDERED: DRGTP12 TD (09:51)
[2016-06-12] MEDS ORDERED: ATROPO PEG (09:51)
[2016-06-12] MEDS ORDERED: ATV1 SL (09:51)
--- NOTE | 2016-06-12 09:52 | Discharge Instructions ---
Discharge Instructions Date of Service Jun 12, 2016. Admission Reason for Admission: Interstitial Lung Disease, Palliative Care Patient Discharge Discharge Diagnosis / Problem: HOSPICE CARE FOR ACUTE ON CHRONIC RESPIRATORY FAILURE FROM PULMONARY FIBROS Discharge Goals Goal(s): Diagnostic testing, Therapeutic intervention Activity Recommendations Activity Level: Assistance Required . Additional Information Patient informed of condition: Yes Advance Directives: Yes DNR: Yes Level of Care: Other Communicable Disease: No Prognosis: Deteriorating Deal Catheter: No Current Hospital Diet Patient's current hospital diet: Regular Diet Discharge Diet Recommended Diet: Regular Diet Pending Studies Studies pending at discharge: no Medical Emergencies . Who to Call and When: Medical Emergencies: If at any time you feel your situation is an emergency, please call 911 immediately. . Non-Emergent Contact Non-Emergency issues call your: Primary Care Provider . . "Provider Documentation" section prepared by Jesus Coker. . Core Measure Problem Core Measures: None
[2016-06-12 10:40] VITALS: BP 94/60; PULSE 92; TEMP 36.3; O2SAT 98
--- NOTE | 2016-06-12 11:16 | Palliative Care Progress Note ---
Palliative Care Progress Note Date of Service Jun 12, 2016. Subjective Pt evaluation today including: conversation w/ patient, physical exam, chart review, conversation w/ contact center consultant, review of inpatient medication list Pain: 0/10 PO Intake: minimal, but is tolerating Voiding: rivers catheter in place -Patient is more awake today. States his SOB is better. -Patient was concerned about going back to [facility] because he thought he was going to have to walk and exert energy. I explained that he would not need to do anything, transport would be set up for him and he will receive the same care there that he is here in the hospital. He agreed and is ready to go back to [facility]. -RN with hospice in to see patient as well- requests for discharge scripts were made and given to Dr. Coker -I updated manager rn case, patient to leave today. Review of Systems Constitutional: + weakness Respiratory: + cough, + shortness of breath Cardiac: No chest pain, No palpitations Abdomen: No nausea, No pain, No vomiting Male : No problem reported Psychiatric: + anxiety (lorazepam works well) Objective Vital Signs Date Time Temp Pulse Resp B/P Pulse Ox O2 Delivery O2 Flow Rate FiO2 06/12/16 11:05 Nasal Cannula 5.0 06/12/16 10:40 36.3 92 18 98 Nasal Cannula 06/12/16 08:11 92 18 98 Nasal Cannula 3.0 06/12/16 00:00 92 Nasal Cannula 5.0 06/11/16 23:29 93 18 93 Nasal Cannula 3.0 06/11/16 20:00 92 Nasal Cannula 5.0 06/11/16 16:00 Nasal Cannula 5.0 06/11/16 14:47 93 18 92 Nasal Cannula 3.0 Physical Exam General Appearance: no apparent distress, + cachetic, + thin ENT: hearing grossly normal Neck: no JVD Respiratory/Chest: + decreased breath sounds, + accessory muscle use (is slighty short of breath at rest), + rhonchi (coarse), + pertinent finding (on 5LNC) Cardiovascular: regular rate, rhythm, + normal peripheral pulses Abdomen: normal bowel sounds, non tender, soft Neurologic/Psychiatric: alert, oriented x 3 (but is forgetful) Assessment and Plan Problem list: Weakness Shortness of breath Cachexia/weight loss/failure to thrive Pain, chest Left pneumothorax Thrush MAC infection Goals of care (Z51.5) Palliative care plan: discussed with patient, Dr. Coker, RN from [address] [place] [address] , and manager rn case. -Plan to go to back to [facility] with hospice today. Patient is agreeable. -broadband technician made requests for comfort med scripts Thank you for allowing me to participate in the care of this patient. Please contact me with any palliative needs. Palliative Performance Scale: 20 % Discharge planning: home with Hospice ([facility] personal halfway with hospice)
--- NOTE | 2016-06-12 14:21 | Discharge Summary ---
Discharge Summary Date of Service Jun 12, 2016. Discharge Summary Admission Date: Jun 08, 2016 at 18:58 Discharge Date: Jun 12, 2016 Discharge Disposition: residential facility Principal Diagnosis: hospice care for pulmonary fibrosis and mycobacterial infection Consultations: Palliative care consult Medication Reconciliation New Medications: Atropine Sulfate (Ophthalmic) (Atropine Sulfate Oph) 1 % Oin 2 DROPS PEG Q4H PRN for ORAL SECRETIONS, #1 BTL Fentanyl (Fentanyl) 12 Mcg Tdsy 12 MCG TD Q3D@0900, #10 PATCH Lorazepam (Lorazepam) 1 Mg Tab 1 MG SL Q6 PRN for Anxiety, #60 TAB Morphine Sulfate (Morphine Sulfate) 15 Mg/0.75 Ml Soln 10 MG PO Q4H, #100 ML MAY USE ADDITIONAL DOSE Q 1 HOUR PRN PAIN Continued Medications: Acetaminophen (Tylenol) 325 Mg Tab 325 MG PO Q6 PRN for Pain, TAB Aspirin (Aspirin 81) 81 Mg Tab 81 MG PO QAM Azelastine Hcl (Astepro) 0.15 % Spr 2 SPRY FERMIN DAILY for 30 Days, #30 ML 3 Refills Calcium/Vitamin D (Os-Tylor 500 Plus D) Tab 1 TAB PO QAM, TAB Cholecalciferol (Vitamin D) 1,000 Unit Tab 1000 UNIT PO DAILY Docusate Sodium (Colace) 100 Mg Cap 100 MG PO BID PRN for Constipation, CAP Ipratropium-Albuterol (Combivent Respimat) 1 Aer Aer 1 PUFFS INH QID, INH Levothyroxine Sodium (Synthroid) 50 Mcg Tab 50 MCG PO QAM Mirtazapine (Remeron) 15 Mg Tab 15 MG PO HS, #30 Multivitamin (Multivitamin) Tab 1 TAB PO QAM, TAB Olmesartan Medoxomil (Benicar) 20 Mg Tab 10 MG PO BID Polyethylene Glycol-Propylene (Systane Ultra) 1 Annette Annette 1 DROPS OP QID, #30 ML 4 Refills Discontinued Medications: Simvastatin (Zocor) 10 Mg Tab 10 MG PO HS for 30 Days, #30 TAB 5 Refills Discharge Exam Review of Systems: Constitutional: + fatigue, + weakness Respiratory: + cough, + dyspnea at rest, + dyspnea on exertion, + shortness of breath, + sputum Cardiovascular: + orthopnea, No chest pain Abdomen: No nausea, No pain Genitourinary - Male: No dysuria, No hematuria Physical Exam: General Appearance: + cachetic, + thin Neck: supple, trachea midline Respiratory/Chest: + respiratory distress, + decreased breath sounds, + accessory muscle use, + rales, + rhonchi Cardiovascular: regular rate, rhythm, + systolic murmur Abdomen / GI: non tender, soft Extremities: no pedal edema, normal range of motion Neurologic/Psychiatric: alert, + depressed affect, + disoriented Hospital Course 75-year-old male with a history of end-stage pulmonary disease: Pulmonary fibrosis, Mycobacterial jaiden infection, poa, transition to inpatient hospice on 06/08 Acute on chronic respiratory failure secondary to pulmonary fibrosis and Dania infection symptom control: Scopolamine patch, adding fentanyl and oral morphine elixir with SL ativan transition to hospice care at snf facility at bedside understands but is having a hard time accepting it morphine, Ativan and Tylenol prn, will try prn phenergan syrup for cough Total Time Spent: Greater than 30 minutes This includes examination of the patient, discharge planning, medication reconciliation, and communication with other providers. Discharge Instructions Please refer to the electronic Patient Visit Report (Discharge Instructions) for additional information.
== END 2016-06-12 13:35 | disposition hospice, inpatient (51) | DRG 196 ==
LOC: C.4E 18:58
PROVIDERS: ADMIT Internal Medicine; ATTEND Internal Medicine
DX: J84.9 Interstitial pulmonary disease, unspecified (principal); J96.21 Acute and chronic respiratory failure with hypoxia; E43 Unspecified severe protein-calorie malnutrition; A31.9 Mycobacterial infection, unspecified; R64 Cachexia; Z68.1 Body mass index [BMI] 19.9 or less, adult; I10 Essential (primary) hypertension; F41.9 Anxiety disorder, unspecified; N40.0 Benign prostatic hyperplasia without lower urinary tract symptoms; R53.1 Weakness; R62.7 Adult failure to thrive; R07.9 Chest pain, unspecified; G25.81 Restless legs syndrome; G62.9 Polyneuropathy, unspecified; R52 Pain, unspecified; Z51.5 Encounter for palliative care; R45.1 Restlessness and agitation; Z66 Do not resuscitate; Z99.81 Dependence on supplemental oxygen; Z87.09 Personal history of other diseases of the respiratory system; Z87.891 Personal history of nicotine dependence; Z79.82 Long term (current) use of aspirin; Z79.899 Other long term (current) drug therapy